=== PATIENT | male | born 1995 | race Caucasian/White ===

== ENCOUNTER 2016-05-07 13:07 | Inpatient (IN) | payer MEDICAID ==
[~2016-05-07] VITALS: Ht 167.6 cm; Wt 68.0 kg
[2016-05-07] MEDS ORDERED: NA P133E RC (13:54)
[2016-05-07] MEDS ORDERED: BISA10SU8 RC (13:54)
[2016-05-07] MEDS ORDERED: ALBU2.5V13 IH (13:54)
[2016-05-07] MEDS ORDERED: LEVE100S GT (13:54)
[2016-05-07] MEDS ORDERED: MAGN400O6 GT (13:54)
[2016-05-07] MEDS ORDERED: VITA1TAB56 GT (13:54)
[2016-05-07] MEDS ORDERED: IPRA0.2S9 IH (13:54)
[2016-05-07] MEDS ORDERED: DOCU50LI GT (13:54)
[2016-05-07] MEDS ORDERED: BACL20TA GT (13:54)
[2016-05-07] MEDS ORDERED: LORA2VIA6 IM (13:56)
[2016-05-07 14:09] LABS: CALCIUM, SERUM 9.2 mg/dL (8.5-10.1); CREATININE 0.7 mg/dL (0.6-1.3); POTASSIUM 4.9 mmol/L (3.5-5.1)
[2016-05-07 14:13] LABS: INR 1.18 (0.87-1.13); PROTHROMBIN TIME 12.4 SECS (9.5-12.7)
[2016-05-07 14:24] LABS: BILIRUBIN,TOTAL 0.2 mg/dL (0.2-1.0); TOTAL PROTEIN, SERUM 8.4 g/dL (6.4-8.2)
[2016-05-07 14:36] LABS: INDIRECT BILIRUBIN 0.2 mg/dL (0.0-1.1)
[2016-05-07 14:54] LABS: DIFF TOTAL % 100 %; HEMATOCRIT 53 % (39-51); HEMOGLOBIN 17.2 g/dL (13.5-17.5); LYMPHOCYTES # (AUTO) 1.3 /CMM (0.8-4.8); LYMPHOCYTES % (AUTO) 5.1 % (20.0-44.0); MEAN CORPUSCULAR HEMOGLOBIN 27 PG (26.0-33.0); MEAN CORPUSCULAR HGB CONC 33 g/dl (31.0-36.0); MEAN CORPUSCULAR VOLUME 83 fL (80-96); MONOCYTES # (AUTO) 0.7 /CMM (0.1-1.30); MONOCYTES % (AUTO) 2.8 % (2.0-12.0); NEUTROPHILS # (AUTO) 22.5 /CMM (1.8-8.9); NEUTROPHILS % (AUTO) 92.1 % (43.0-81.0); PLATELET COUNT (AUTO) 318 /CMM (150-450); RED BLOOD CELL COUNT(AUTO) 6.33 MIL/uL (4.5-6.0); WHITE BLOOD COUNT (AUTO) 24.4 K/uL (4.3-11.0)
[2016-05-07] MEDS ORDERED: IV NS 0.9% 1,000 ML BAG IV ONE ×2 (15:00→16:00)
[2016-05-07 15:04] LABS: KETONES,URINE 15 (NEGATIVE); LEUKOCYTE ESTERASE ,URINE Negative (NEGATIVE); PH,URINE 6.5 (5.0-8.0)
[2016-05-07 15:11] LABS: ADD UA MICROSCOPIC YES
[2016-05-07] MEDS ORDERED: IV SET PRIMARY 1 EA INFUS.SET MC ONE ×2 (15:12→15:57)
[2016-05-07] MEDS ORDERED: IV NS 0.9% 1,000 ML ONE ×2 (15:12→15:57)
[2016-05-07 15:22] LABS: ADD URINE CULTURE YES; RBC,URINE 0-3 /HPF (0-2)
[2016-05-07 15:54] LABS: LACTIC ACID 2.6 mmol/L (0.4-2.0)
[2016-05-07] MEDS ORDERED: CEFTRIAXONE 1GM BAG (ER ONLY) 50 ML IV ONE (15:56)
[2016-05-07] MEDS ORDERED: IV NS 0.9% 500 ML IV ONE (15:57)
[2016-05-07] MEDS ORDERED: IV SET PRIMARY PUMP SET 1 EA INFUS.SET MC ONE ×2 (15:57→21:33)
[2016-05-07] MEDS ORDERED: CEFTRIAXONE 1GM BAG (ER ONLY) 1 GM/50 ML PIGGYBACK IV ONE (16:00)
[2016-05-07 16:29] LABS: *LACTIC ACID REFLEX FLAG YES
[2016-05-07] MEDS ORDERED: ACETAMINOPHEN ES 500 MG TABLET ONE (16:32)
[2016-05-07 19:00] VITALS: BP 101/53
[2016-05-07 20:00] VITALS: BP 104/56
[2016-05-07] MEDS ORDERED: ACETAMINOPHEN 650 MG/20.3 ML UDC GT PRN (20:00)
[2016-05-07] MEDS ORDERED: FEE PK DOSING 1 MIN EA MC ONE (20:11)
[2016-05-07] MEDS ORDERED: SECONDARY IV SET 1 EA INFUS.SET MC ONE (21:33)
[2016-05-07] MEDS: VANCOMYCIN 1 GM in IV D5W 250 ML IV SCH (22:02)
[2016-05-07] MEDS: IV D5/ 0.9% NACL 1,000 ML IV PRN (22:03)
[2016-05-07] MEDS: ENOXAPARIN SODIUM 40 MG/0.4 ML DISP.SYRIN SQ SCH (22:05)
[2016-05-07] MEDS ORDERED: MAGNESIUM HYDROXIDE 30 ML UDC GT PRN (23:30)
[2016-05-07] MEDS ORDERED: ALBUTEROL FS 2.5 MG/3 ML VIAL.NEB NEB PRN (23:30)
[2016-05-07] MEDS ORDERED: LORAZEPAM INJ 2 MG/ML VIAL IV PRN (23:30)
[2016-05-07] MEDS ORDERED: IPRATROPIUM NEB FS 0.5 MG/2.5 ML AMPUL.NEB NEB PRN (23:30)
[2016-05-07] MEDS ORDERED: NA PHOS,M-B/NA PHOS,DI-BA 1 EA ENEMA RC PRN (23:30)
[2016-05-07] MEDS ORDERED: BISACODYL SUPP (10 MG) 10 MG/SUPP.RECT SUPP.RECT RC PRN (23:30)
[2016-05-08] MEDS ORDERED: LEVETIRACETAM SOL (5 ML) 100 MG/ML UDC ONE (00:12)
[2016-05-08] MEDS ORDERED: BACLOFEN (10 MG) 10 MG TABLET ONE ×2 (00:13→05:27)
[2016-05-08] MEDS ORDERED: SECONDARY IV SET 1 EA INFUS.SET MC ONE ×2 (00:15→13:53)
[2016-05-08] MEDS: LEVETIRACETAM SOL (5 ML) 100 MG/ML UDC GT SCH ×3 (00:19→16:47)
[2016-05-08] MEDS: BACLOFEN (10 MG) 10 MG TABLET GT SCH ×4 (00:19→21:24)
[2016-05-08] MEDS: PIPERACILLIN /TAZOBACTAM 3.375 G in IV D5W 50 ML IV SCH ×4 (00:20→17:43)
[2016-05-08] MEDS ORDERED: ALBUTEROL FS 2.5 MG/3 ML VIAL.NEB ONE (01:09)
[2016-05-08] MEDS ORDERED: IPRATROPIUM NEB FS 0.5 MG/2.5 ML AMPUL.NEB ONE (01:09)
[2016-05-08] MEDS ORDERED: ACETAMINOPHEN 650 MG/20.3 ML UDC ONE (01:56)
[2016-05-08] MEDS: VANCOMYCIN 1 GM in IV D5W 250 ML IV SCH ×3 (04:19→21:27)
[2016-05-08 07:03] LABS: BASOPHILS % (AUTO) 0.1 % (0.0-2.0); DIFF TOTAL % 100 %; EOSINOPHILS # (AUTO) 0.1 /CMM (0.0-0.7); EOSINOPHILS % (AUTO) 0.7 % (0.0-6.0); HEMATOCRIT 44 % (39-51); HEMOGLOBIN 14.4 g/dL (13.5-17.5); LYMPHOCYTES # (AUTO) 2.4 /CMM (0.8-4.8); LYMPHOCYTES % (AUTO) 18.1 % (20.0-44.0); MEAN CORPUSCULAR HEMOGLOBIN 27 PG (26.0-33.0); MEAN CORPUSCULAR HGB CONC 33 g/dl (31.0-36.0); MEAN CORPUSCULAR VOLUME 83 fL (80-96); MONOCYTES # (AUTO) 1.3 /CMM (0.1-1.30); MONOCYTES % (AUTO) 10.3 % (2.0-12.0); NEUTROPHILS # (AUTO) 9.2 /CMM (1.8-8.9); NEUTROPHILS % (AUTO) 70.8 % (43.0-81.0); PLATELET COUNT (AUTO) 256 /CMM (150-450); RED BLOOD CELL COUNT(AUTO) 5.28 MIL/uL (4.5-6.0)
[2016-05-08 07:22] LABS: CALCIUM, SERUM 8.4 mg/dL (8.5-10.1); CREATININE 0.7 mg/dL (0.6-1.3); POTASSIUM 3.6 mmol/L (3.5-5.1)
[2016-05-08 08:00] VITALS: BP 124/67
[2016-05-08] MEDS: DOCUSATE SODIUM LIQ 100 MG/10 ML UDC GT SCH ×2 (09:31→16:47)
[2016-05-08] MEDS: PANTOPRAZOLE 40 MG/PACK PACK GT SCH (09:31)
[2016-05-08] MEDS: VITAMIN B COMP W-C 1 TAB TABLET GT SCH (09:31)
[2016-05-08] MEDS: IV D5/ 0.9% NACL 1,000 ML IV PRN (11:42)
[2016-05-08 16:00] VITALS: BP 112/69
[2016-05-08] MEDS: LACTOBACILLUS RHAMNOSUS GG 1 EACH CAP.SPRINK GT SCH (16:47)
[2016-05-08 21:22] VITALS: BP 109/89
[2016-05-08] MEDS: ENOXAPARIN SODIUM 40 MG/0.4 ML DISP.SYRIN SQ SCH (21:25)
[2016-05-09] MEDS: PIPERACILLIN /TAZOBACTAM 3.375 G in IV D5W 50 ML IV SCH ×4 (00:15→17:20)
[2016-05-09] MEDS: BACLOFEN (10 MG) 10 MG TABLET GT SCH ×3 (04:25→20:52)
[2016-05-09] MEDS: VANCOMYCIN 1 GM in IV D5W 250 ML IV SCH ×3 (04:28→20:53)
[2016-05-09] MEDS: IV D5/ 0.9% NACL 1,000 ML IV PRN (04:34)
[2016-05-09 06:54] LABS: CALCIUM, SERUM 8.7 mg/dL (8.5-10.1); CREATININE 0.9 mg/dL (0.6-1.3); POTASSIUM 3.4 mmol/L (3.5-5.1)
[2016-05-09 08:00] VITALS: BP 113/71
[2016-05-09] MEDS: DOCUSATE SODIUM LIQ 100 MG/10 ML UDC GT SCH ×2 (08:40→16:20)
[2016-05-09] MEDS: LEVETIRACETAM SOL (5 ML) 100 MG/ML UDC GT SCH ×2 (08:41→16:20)
[2016-05-09] MEDS: LACTOBACILLUS RHAMNOSUS GG 1 EACH CAP.SPRINK GT SCH ×2 (08:41→16:20)
[2016-05-09] MEDS: VITAMIN B COMP W-C 1 TAB TABLET GT SCH (08:41)
[2016-05-09] MEDS: PANTOPRAZOLE 40 MG/PACK PACK GT SCH (08:41)
[2016-05-09] MEDS ORDERED: IV D5W 1,000 ML IV ONE (09:30)
[2016-05-09 09:42] LABS: BASOPHILS % (AUTO) 0.2 % (0.0-2.0); DIFF TOTAL % 100 %; EOSINOPHILS # (AUTO) 0.2 /CMM (0.0-0.7); HEMATOCRIT 48 % (39-51); HEMOGLOBIN 15.4 g/dL (13.5-17.5); LYMPHOCYTES # (AUTO) 2.3 /CMM (0.8-4.8); LYMPHOCYTES % (AUTO) 19.1 % (20.0-44.0); MEAN CORPUSCULAR HEMOGLOBIN 27 PG (26.0-33.0); MEAN CORPUSCULAR HGB CONC 32 g/dl (31.0-36.0); MEAN CORPUSCULAR VOLUME 83 fL (80-96); MONOCYTES % (AUTO) 8.6 % (2.0-12.0); NEUTROPHILS # (AUTO) 8.4 /CMM (1.8-8.9); NEUTROPHILS % (AUTO) 70.1 % (43.0-81.0); PLATELET COUNT (AUTO) 270 /CMM (150-450); RED BLOOD CELL COUNT(AUTO) 5.71 MIL/uL (4.5-6.0)
[2016-05-09] MEDS ORDERED: POTASSIUM CHLORIDE 20 MEQ POWDER PACKET GT ONE (10:00)
[2016-05-09 16:00] VITALS: BP 117/66
[2016-05-09 16:03] VITALS: BP 117/66
[2016-05-09 20:00] VITALS: BP 121/79
[2016-05-09] MEDS ORDERED: IV SET PRIMARY PUMP SET 1 EA INFUS.SET MC ONE (20:47)
[2016-05-09] MEDS ORDERED: IV NS 0.9% 250 ML IV ONE (20:47)
[2016-05-09] MEDS ORDERED: SECONDARY IV SET 1 EA INFUS.SET MC ONE (20:48)
[2016-05-09] MEDS: ENOXAPARIN SODIUM 40 MG/0.4 ML DISP.SYRIN SQ SCH (20:54)
[2016-05-10] MEDS: PIPERACILLIN /TAZOBACTAM 3.375 G in IV D5W 50 ML IV SCH ×5 (00:08→23:43)
[2016-05-10 04:23] LABS: BASOPHILS % (AUTO) 0.2 % (0.0-2.0); DIFF TOTAL % 100 %; EOSINOPHILS # (AUTO) 0.4 /CMM (0.0-0.7); EOSINOPHILS % (AUTO) 3.3 % (0.0-6.0); HEMATOCRIT 50 % (39-51); HEMOGLOBIN 15.7 g/dL (13.5-17.5); LYMPHOCYTES # (AUTO) 2.7 /CMM (0.8-4.8); LYMPHOCYTES % (AUTO) 25.3 % (20.0-44.0); MEAN CORPUSCULAR HEMOGLOBIN 27 PG (26.0-33.0); MEAN CORPUSCULAR HGB CONC 32 g/dl (31.0-36.0); MEAN CORPUSCULAR VOLUME 85 fL (80-96); MONOCYTES # (AUTO) 1.1 /CMM (0.1-1.30); MONOCYTES % (AUTO) 10.3 % (2.0-12.0); NEUTROPHILS # (AUTO) 6.5 /CMM (1.8-8.9); NEUTROPHILS % (AUTO) 60.9 % (43.0-81.0); PLATELET COUNT (AUTO) 230 /CMM (150-450); RED BLOOD CELL COUNT(AUTO) 5.86 MIL/uL (4.5-6.0); WHITE BLOOD COUNT (AUTO) 10.7 K/uL (4.3-11.0)
[2016-05-10 04:37] LABS: CREATININE 0.8 mg/dL (0.6-1.3); POTASSIUM 3.9 mmol/L (3.5-5.1)
[2016-05-10] MEDS: VANCOMYCIN 1 GM in IV D5W 250 ML IV SCH ×3 (05:01→20:35)
[2016-05-10] MEDS ORDERED: IV D5/0.45 NACL 1,000 ML IV ONE (05:47)
[2016-05-10] MEDS: BACLOFEN (10 MG) 10 MG TABLET GT SCH ×3 (05:56→20:36)
[2016-05-10] MEDS ORDERED: IV D5W 1,000 ML IV ONE (06:06)
[2016-05-10] MEDS ORDERED: DEXTROSE 50%-WATER 50 ML DISP.SYRIN ONE (06:36)
[2016-05-10 08:00] VITALS: BP 113/72
[2016-05-10] MEDS: LEVETIRACETAM SOL (5 ML) 100 MG/ML UDC GT SCH ×2 (08:33→16:06)
[2016-05-10] MEDS: VITAMIN B COMP W-C 1 TAB TABLET GT SCH (08:34)
[2016-05-10] MEDS: DOCUSATE SODIUM LIQ 100 MG/10 ML UDC GT SCH ×2 (08:34→16:06)
[2016-05-10] MEDS: PANTOPRAZOLE 40 MG/PACK PACK GT SCH (08:34)
[2016-05-10] MEDS: LACTOBACILLUS RHAMNOSUS GG 1 EACH CAP.SPRINK GT SCH ×2 (08:34→16:06)
[2016-05-10 16:00] VITALS: BP 115/71
[2016-05-10 17:27] VITALS: BP 115/71
[2016-05-10 20:00] VITALS: BP 115/66
[2016-05-10 20:25] VITALS: BP 115/66
[2016-05-10] MEDS: ENOXAPARIN SODIUM 40 MG/0.4 ML DISP.SYRIN SQ SCH (22:03)
[2016-05-10] MEDS ORDERED: SECONDARY IV SET 1 EA INFUS.SET MC ONE (23:35)
[2016-05-11] MEDS: VANCOMYCIN 1 GM in IV D5W 250 ML IV SCH (04:16)
[2016-05-11] MEDS: BACLOFEN (10 MG) 10 MG TABLET GT SCH ×2 (04:19→12:25)
[2016-05-11] MEDS: PIPERACILLIN /TAZOBACTAM 3.375 G in IV D5W 50 ML IV SCH ×2 (05:16→11:30)
[2016-05-11 07:25] LABS: BASOPHILS % (AUTO) 0.1 % (0.0-2.0); DIFF TOTAL % 100 %; EOSINOPHILS # (AUTO) 0.4 /CMM (0.0-0.7); EOSINOPHILS % (AUTO) 2.8 % (0.0-6.0); HEMATOCRIT 47 % (39-51); HEMOGLOBIN 15.5 g/dL (13.5-17.5); LYMPHOCYTES # (AUTO) 2.3 /CMM (0.8-4.8); MEAN CORPUSCULAR HEMOGLOBIN 27 PG (26.0-33.0); MEAN CORPUSCULAR HGB CONC 33 g/dl (31.0-36.0); MEAN CORPUSCULAR VOLUME 83 fL (80-96); MONOCYTES # (AUTO) 1.4 /CMM (0.1-1.30); MONOCYTES % (AUTO) 9.1 % (2.0-12.0); NEUTROPHILS # (AUTO) 11.2 /CMM (1.8-8.9); PLATELET COUNT (AUTO) 286 /CMM (150-450); RED BLOOD CELL COUNT(AUTO) 5.69 MIL/uL (4.5-6.0); WHITE BLOOD COUNT (AUTO) 15.3 K/uL (4.3-11.0)
[2016-05-11 07:55] LABS: CALCIUM, SERUM 8.9 mg/dL (8.5-10.1); POTASSIUM 3.6 mmol/L (3.5-5.1)
[2016-05-11 08:00] VITALS: BP 114/73
[2016-05-11] MEDS: LEVETIRACETAM SOL (5 ML) 100 MG/ML UDC GT SCH (08:10)
[2016-05-11] MEDS: LACTOBACILLUS RHAMNOSUS GG 1 EACH CAP.SPRINK GT SCH (08:10)
[2016-05-11] MEDS: DOCUSATE SODIUM LIQ 100 MG/10 ML UDC GT SCH (08:10)
[2016-05-11] MEDS: VITAMIN B COMP W-C 1 TAB TABLET GT SCH (08:10)
[2016-05-11] MEDS: PANTOPRAZOLE 40 MG/PACK PACK GT SCH (08:10)
== END 2016-05-11 13:50 | DRG 720 ==
LOC: ER 13:10 → TELE 17:11 → MED 23:48
PROVIDERS: ADMIT Legal Medicine; ATTEND Legal Medicine
DX: A41.9 Sepsis, unspecified organism (principal); J96.20 Acute and chronic respiratory failure, unspecified whether with hypoxia or hypercapnia; G93.1 Anoxic brain damage, not elsewhere classified; E87.0 Hyperosmolality and hypernatremia; G40.909 Epilepsy, unspecified, not intractable, without status epilepticus; Z87.820 Personal history of traumatic brain injury; G93.89 Other specified disorders of brain; E86.0 Dehydration; E86.1 Hypovolemia
CPT/HCPCS: 36415; 70450-TC; 71010-TC; 80048-TC; 80076-TC; 80202-TC; 81000-TC; 83605-TC; 85025-TC; 85730-TC; 87040-TC; 87081-TC; 87086-TC; 87400; 92521; 92526; 97001-TC; A4606; J0696; J1650; J1953; J2543; J3370; J3490; J7030; J7040; J7042; J7050; J7060; J7070; Z7610

== ENCOUNTER 2017-02-09 15:26 | Emergency (ER) | payer MEDICAID ==
[~2017-02-09] VITALS: Ht 160 cm; Wt 77.1 kg
[~2017-02-09 15:26] MED LIST: ALBU2.5V13 IH; BACL20TA GT; BISA10SU8 RC; DOCU50LI GT; IPRA0.2S9 IH; LEVE100S GT; LORA2VIA6 IM; MAGN400O6 GT; NA P133E RC; VITA1TAB56 GT
--- NOTE | 2017-02-09 15:45 | NUR ---
[facility] FOR LEAKING GTUBE. OBTUNDED. NON VERBAL. EYES OPEN. HOB ELEVATED. SIDE RAILS UP.
--- NOTE | 2017-02-09 16:13 | NUR ---
[facility] CALLED, SPOKE WITH TRACY AND ANOTHER NURSE IN CHARGED OF PT, VERIFIED THAT IT IS A G TUBE AND THE TUBE WAS LEAKING WHEN IT WAS FLUSHED AT NOON TIME
[2017-02-09] MEDS ORDERED: DIATR MEGLU/DIATRIZOATE SODIUM 30 ML BOTTLE (GASTROGRAPHIN) ONE (16:26)
--- NOTE | 2017-02-09 17:44 | NUR ---
CALLED [facility] FOR TRANSPORTATION GOING BACK TO [facility], ETA 190
[2017-02-09 20:40] VITALS: BP 112/70
== END 2017-02-09 20:40 ==
LOC: ER 15:28
DX: K94.23 Gastrostomy malfunction (principal); G40.909 Epilepsy, unspecified, not intractable, without status epilepticus; R13.10 Dysphagia, unspecified; G81.94 Hemiplegia, unspecified affecting left nondominant side; Z87.820 Personal history of traumatic brain injury
CPT/HCPCS: 74000-TC; A4606; Q9963; Z7610

== ENCOUNTER 2017-09-30 05:01 | Inpatient (IN) | payer MEDICAID ==
[~2017-09-30] VITALS: Ht 172.7 cm; Wt 76.2 kg
[2017-09-30] MEDS ORDERED: LORAZEPAM INJ 2 MG/ML VIAL ONE (05:09)
--- NOTE | 2017-09-30 05:11 | NUR ---
[facility]IBRA86 FROM [facility], PER EMS PT WAS HAVING TONIC CLONIC SEIZURE. PER EMS BG 87 IN FIELD. PT NOTED TO BE GCS 5-6, AAOX0. NO S/S OF TRAUMA NOTED. NO S/S OF ORAL TRAUMA NOTED. SKIN HOT AND DRY TO TOUCH. NO S/S OF ACUTE DISTRESS NOTED. PT PLACED ON CONTINOUS HOME PERFORMANCE CONSULTANT AND POX. PT SAFETY IN PLACE. SEIZURE PRECAUTIONS IN PLACE. MD BEDSIDE FOR EVAL. WILL CONTINUE TO MONITOR PT.
--- NOTE | 2017-09-30 05:14 | NUR ---
BLOOD SPECIMEN AND URINE SPECIMEN COLLECTED AND CALLED LAB FOR DUTY MANAGER
[2017-09-30] MEDS ORDERED: LORAZEPAM INJ 2 MG/ML VIAL IVP ONE (05:30)
[2017-09-30] MEDS ORDERED: IV NS 0.9% 500 ML BAG IV ONE (05:30)
[2017-09-30 05:32] LABS: BASOPHILS % (AUTO) 0.3 % (0.0-2.0); HEMATOCRIT 48 % (39-51); HEMOGLOBIN 15.9 g/dL (13.5-17.5); LYMPHOCYTES # (AUTO) 1.2 /CMM (0.8-4.8); LYMPHOCYTES % (AUTO) 8.3 % (20.0-44.0); MEAN CORPUSCULAR HEMOGLOBIN 28 PG (26.0-33.0); MEAN CORPUSCULAR HGB CONC 33 g/dl (31.0-36.0); MEAN CORPUSCULAR VOLUME 84 fL (80-96); MONOCYTES % (AUTO) 6.9 % (2.0-12.0); NEUTROPHILS % (AUTO) 83.5 % (43.0-81.0); PLATELET COUNT (AUTO) 305 /CMM (150-450); RDW COEFFICIENT OF VARIATION 13.6 (11.5-15.0); WHITE BLOOD COUNT (AUTO) 14.4 K/uL (4.3-11.0)
[2017-09-30 05:38] LABS: APPEARANCE,URINE CLOUDY (CLEAR); BILIRUBIN,URINE NEGATIVE (NEGATIVE); BLOOD, URINE 3+ Ery/uL (NEGATIVE); COLOR,URINE DARK YELLO (YELLOW); KETONES,URINE NEGATIVE (NEGATIVE); LEUKOCYTE ESTERASE ,URINE 1+ (NEGATIVE); NITRITE, URINE POSITIVE (NEGATIVE); PH,URINE 5.5 (5.0-8.0); PROTEIN,URINE TRACE mg/dl (NEGATIVE); UGLUCOSE NEGATIVE (NEGATIVE); UROBILINOGEN,URINE 0.2 EU/dL (0.2)
[2017-09-30 05:44] LABS: CALCIUM, SERUM 8.9 mg/dL (8.5-10.1); CARBON DIOXIDE 28 mmol/L (21-32); CHLORIDE 104 mmol/L (98-107); CREATININE 0.8 mg/dL (0.6-1.3); GLUCOSE 103 mg/dL (74-106); POTASSIUM 4.1 mmol/L (3.5-5.1); SODIUM SERUM 139 mmol/L (136-145); UREA NITROGEN, BLOOD 9 mg/dL (7-18)
[2017-09-30 05:48] LABS: INR 1.12 (0.87-1.13)
[2017-09-30 05:50] LABS: ALANINE AMINOTRANSFERASE 24 U/L (12-78); ALBUMIN 3.5 g/dL (3.4-5.0); ALCOHOL, BLOOD < 3 mg/dL (0-0); ALKALINE PHOSPHATASE 90 U/L (46-116); ASPARTATE AMINOTRANSFERASE 10 U/L (15-37); BILIRUBIN,TOTAL 0.2 mg/dL (0.2-1.0); TOTAL PROTEIN, SERUM 8.1 g/dL (6.4-8.2)
[2017-09-30] MEDS ORDERED: SACC250C GT (06:19)
[2017-09-30] MEDS ORDERED: VITA1CAP GT (06:19)
[2017-09-30] MEDS ORDERED: LAMO25TA5 GT (06:19)
[2017-09-30] MEDS ORDERED: ACET325C5 GT (06:19)
[2017-09-30 06:22] LABS: BACTERIA,URINE Moderate /HPF (None Seen); RBC,URINE TOO NUMEROUS TO COUN /HPF (0-2)
[2017-09-30 06:23] LABS: SQUAMOUS EPITHELIAL CELL,UR Few /HPF (None Seen)
[2017-09-30] MEDS ORDERED: CEFTRIAXONE 1GM BAG (ER ONLY) 50 ML IV ONE (06:30)
[2017-09-30] MEDS ORDERED: CEFTRIAXONE 1 G VIAL ONE (06:32)
--- NOTE | 2017-09-30 06:52 | NUR ---
PER MD MILLER, PT WILL BE UPGRADED TO [facility].
[2017-09-30] MEDS ORDERED: LORAZEPAM INJ 2 MG/ML VIAL IV PRN (07:30)
[2017-09-30] MEDS ORDERED: ZOLPIDEM TARTRATE 5 MG TABLET GT PRN (07:30)
[2017-09-30] MEDS ORDERED: MAG HYDROX/AL HYDROX/SIMETH 30 ML UDC GT PRN (07:30)
[2017-09-30] MEDS ORDERED: MAGNESIUM HYDROXIDE 30 ML UDC GT PRN (07:30)
[2017-09-30] MEDS ORDERED: ONDANSETRON HCL/PF 4 MG/2 ML VIAL IVP PRN (07:30)
[2017-09-30] MEDS ORDERED: NA PHOS,M-B/NA PHOS,DI-BA 1 EA ENEMA RC PRN (07:30)
[2017-09-30] MEDS ORDERED: BISACODYL SUPP (10 MG) 10 MG/SUPP.RECT SUPP.RECT RC PRN (07:30)
[2017-09-30] MEDS ORDERED: MAGNESIUM HYDROXIDE 30 ML UDC PO PRN (07:30)
[2017-09-30 08:00] VITALS: BP 122/61
[2017-09-30 08:20] VITALS: BP 122/61
--- NOTE | 2017-09-30 08:20 | NUR ---
RN NOTE RECEIVED REPORT FROM GALI IN ER. RECEIVED PATIENT 22 YEAR OLD MALE CAME FROM [facility] FOR SEIZURES. PATIENT IS ALERT TO TACTILE STIMULI. ABNORMAL UPPER EXTREMITY POSTURE. BREATHING EVEN AND UNLABORED WITH NO DISTRESS NOTED. ON FITTER UP SINUS TACH HR OF 107. F/C INTACT AND PATENT WITH ADEQUATE FLOW OF URINE. GT SITE INTACT AND PATENT WITH NO RESIDUALS NOTED. WOUND PICTURES TAKEN AND DOCUMENTED IN CHART. RIGHT HAND IV SITE IS INTACT AND PATENT SALINE LOCK. BED LOW AND LOCKED POSITION. SEIZURE PRECAUTION DONE. WILL CONTINUE TO MONITOR CLOSELY.
[2017-09-30] MEDS ORDERED: LEVETIRACETAM (500MG) 1,500 MG in IV NS 0.9% 100 ML IV SCH (09:00)
[2017-09-30] MEDS: IV NS 0.9% 1,000 ML IV PRN (09:10)
[2017-09-30] MEDS: ENOXAPARIN SODIUM 40 MG/0.4 ML DISP.SYRIN SQ SCH (09:16)
[2017-09-30] MEDS: PANTOPRAZOLE 40 MG VIAL IV SCH (09:16)
[2017-09-30] MEDS: LamoTRIgine 25 MG TABLET GT SCH ×2 (10:19→16:25)
[2017-09-30] MEDS: LACTOBACILLUS RHAMNOSUS GG 1 EACH CAP.SPRINK GT SCH ×2 (10:19→16:25)
[2017-09-30] MEDS: DOCUSATE SODIUM LIQ 100 MG/10 ML UDC GT SCH ×2 (10:19→16:25)
[2017-09-30] MEDS: VITAMIN B COMP W-C 1 TAB TABLET GT SCH (10:20)
[2017-09-30] MEDS ORDERED: PHENOBARBITAL SODIUM 1,000 MG in IV NS 0.9% 80 ML IV ONE (10:30)
[2017-09-30 12:00] VITALS: BP 100/65
[2017-09-30 16:00] VITALS: BP 106/60
[2017-09-30] MEDS: PHENOBARBITAL 60 MG/15 ML UDC GT SCH (16:25)
[2017-09-30] MEDS: ACETAMINOPHEN 650 MG/20.3 ML UDC GT PRN (16:25)
--- NOTE | 2017-09-30 16:54 | NUR ---
Patient resides at [facility] [phone],requires max assist with adl's. Bed/chair bound most of the time. He is on 7 days bedhold with plan to return to SNF when discharge. Addendum: 09/30/17 at 1654 by MAGGY PINZON RN Amended: Links added.
--- NOTE | 2017-09-30 19:24 | NUR ---
RN NOTE PATIENT REMAINED STABLE THROUGHOUT SHIFT. NO ACUTE CHANGES OR DISTRESS NOTED. WILL ENDORSE TO NEXT SHIFT TO CONTINUE CONTINUITY OF CARE.
[2017-09-30 20:00] VITALS: BP 103/64
--- NOTE | 2017-09-30 20:00 | NUR ---
el rn notes received pts in bed obtunded non verbal , on r/a sating 93% no sob no distress noted at this time , v/s stable afebrile , no seizure activity noted .all needs attended too , npo except meds maintained , on ivf of ns at 75cc/hr infusing well , with f/c intact and patent draining with yellowish urine output ,turned and repositioned , kept pts clean dry and comfortable . will continue to monitor pts.
[2017-10-01] VITALS: BP 90/55
[2017-10-01] MEDS: IV NS 0.9% 1,000 ML IV PRN (00:47)
[2017-10-01 04:00] VITALS: BP 105/55
[2017-10-01 06:15] LABS: BASOPHILS % (AUTO) 0.3 % (0.0-2.0); EOSINOPHILS % (AUTO) 1.3 % (0.0-6.0); HEMATOCRIT 44 % (39-51); HEMOGLOBIN 14.3 g/dL (13.5-17.5); LYMPHOCYTES # (AUTO) 2.1 /CMM (0.8-4.8); LYMPHOCYTES % (AUTO) 16.9 % (20.0-44.0); MEAN CORPUSCULAR HEMOGLOBIN 28 PG (26.0-33.0); MEAN CORPUSCULAR HGB CONC 33 g/dl (31.0-36.0); MEAN CORPUSCULAR VOLUME 86 fL (80-96); MONOCYTES # (AUTO) 1.3 /CMM (0.1-1.30); MONOCYTES % (AUTO) 10.4 % (2.0-12.0); NEUTROPHILS # (AUTO) 8.7 /CMM (1.8-8.9); NEUTROPHILS % (AUTO) 71.1 % (43.0-81.0); PLATELET COUNT (AUTO) 263 /CMM (150-450); RDW COEFFICIENT OF VARIATION 13.6 (11.5-15.0); RED BLOOD CELL COUNT(AUTO) 5.09 MIL/uL (4.5-6.0); WHITE BLOOD COUNT (AUTO) 12.2 K/uL (4.3-11.0)
[2017-10-01 06:46] LABS: CALCIUM, SERUM 8.2 mg/dL (8.5-10.1); CREATININE 0.7 mg/dL (0.6-1.3); POTASSIUM 4.3 mmol/L (3.5-5.1)
--- NOTE | 2017-10-01 07:30 | NUR ---
[facility] RN NOTES PTS REMAINS OBTUNDED NO SEIZURE ACTIVITY NOTED, NO SIGNIFICANT CHANGE NOTED , WILL ENDORSE TO RN FRANNY FOR CONTINUITY OF CARE.
--- NOTE | 2017-10-01 07:30 | NUR ---
[facility] RN INITIAL NOTES RECEIVED PATIENT IN BED, OBTUNDED, NONVERBAL, ON ROOM AIR, NO DISTRESS NOTED, NO SEIZURE ACTIVITY AT THIS TIME, ON TELE MONITORING 94 HR, IV R HAND 20G, CLEAN AND PATENT, FC TO GRAVITY, BED IN LOCKED POSITION CALL LIGHT WITHIN REACH, WILL CONTINUE TO MONITOR.
[2017-10-01] MEDS: CEFTRIAXONE 1 G in IV D5W 50 ML IV SCH (07:55)
[2017-10-01 08:00] VITALS: BP 99/67
[2017-10-01] MEDS: PANTOPRAZOLE 40 MG VIAL IV SCH (08:20)
[2017-10-01] MEDS: LACTOBACILLUS RHAMNOSUS GG 1 EACH CAP.SPRINK GT SCH ×2 (08:20→16:40)
[2017-10-01] MEDS: DOCUSATE SODIUM LIQ 100 MG/10 ML UDC GT SCH ×2 (08:20→16:40)
[2017-10-01] MEDS: LamoTRIgine 25 MG TABLET GT SCH ×2 (08:20→16:40)
[2017-10-01] MEDS: PHENOBARBITAL 60 MG/15 ML UDC GT SCH ×2 (08:20→16:40)
[2017-10-01] MEDS: VITAMIN B COMP W-C 1 TAB TABLET GT SCH (08:20)
[2017-10-01] MEDS: ENOXAPARIN SODIUM 40 MG/0.4 ML DISP.SYRIN SQ SCH (08:22)
[2017-10-01] MEDS: CALCIUM CARBONATE 1,250 MG/5 ML UDC GT SCH (08:48)
[2017-10-01 12:00] VITALS: BP 110/69
[2017-10-01 16:00] VITALS: BP 104/68
[2017-10-01] MEDS: JEVITY 1.2 CAL 1,000 ML BOTTLE GT PRN (18:18)
--- NOTE | 2017-10-01 18:30 | NUR ---
CLIENT SERVICE SUPERVISOR END NOTES PATIENT RESTING IN BED, NO SIGNS OF DISTRESS, ALL NEEDS MET, NO CHANGES NOTED, WILL ENDORSE TO INTELLECTUAL PROPERTY COUNSEL FOR CONTINUITY OF CARE.
[2017-10-01 20:00] VITALS: BP 97/64
--- NOTE | 2017-10-01 20:10 | NUR ---
RN NOTES RECEIVED PATIENT AWAKE IN BED WITH NO DISTRESS NOTED. BREATHING EVEN AND UNLABORED. NO PHYSICAL MANIFESTATION OF PAIN OR DISCOMFORT. NOTED WITH EYE CONTACT. KEPT CLEAN AND DRY. WILL CONTINUE TO MONITOR.
[2017-10-02] VITALS: BP 100/67
[2017-10-02 04:00] VITALS: BP 105/74
[2017-10-02] MEDS: IV NS 0.9% 1,000 ML IV PRN ×2 (06:14→21:50)
[2017-10-02 06:15] LABS: BASOPHILS % (AUTO) 0.3 % (0.0-2.0); EOSINOPHILS % (AUTO) 1.4 % (0.0-6.0); HEMATOCRIT 47 % (39-51); HEMOGLOBIN 15.1 g/dL (13.5-17.5); LYMPHOCYTES % (AUTO) 13.5 % (20.0-44.0); MEAN CORPUSCULAR HEMOGLOBIN 28 PG (26.0-33.0); MEAN CORPUSCULAR HGB CONC 32 g/dl (31.0-36.0); MEAN CORPUSCULAR VOLUME 86 fL (80-96); MONOCYTES # (AUTO) 1.5 /CMM (0.1-1.30); MONOCYTES % (AUTO) 10.6 % (2.0-12.0); NEUTROPHILS # (AUTO) 10.9 /CMM (1.8-8.9); NEUTROPHILS % (AUTO) 74.2 % (43.0-81.0); PLATELET COUNT (AUTO) 252 /CMM (150-450); RDW COEFFICIENT OF VARIATION 13.4 (11.5-15.0); RED BLOOD CELL COUNT(AUTO) 5.43 MIL/uL (4.5-6.0); WHITE BLOOD COUNT (AUTO) 14.6 K/uL (4.3-11.0)
[2017-10-02 06:35] LABS: CALCIUM, SERUM 8.2 mg/dL (8.5-10.1); CREATININE 0.7 mg/dL (0.6-1.3); POTASSIUM 3.7 mmol/L (3.5-5.1)
--- NOTE | 2017-10-02 07:15 | NUR ---
TELE/RN INITIAL NOTES RECEIVED PT IN BED, A/OX1. TOLERATING ROOM AIR WELL, NO SOB NOTED. NO C/O PAIN AT THIS TIME. SINUS TACHY HR 104 ON TELE MONITOR. FC INTACT AND IN PLACED. WITH ONGOING IVF NS AT 75 ML/HR INFUSING WELL ON RHAND. NO INFECTION NOTED. WITH ONGOING GTF OF JEVITY 1.2 AT 70 ML/HR, TOLERATING WELL, NO RESIDUE NOTED. GT INTACT AND IN PLACED. HOB ELEVATED. SAFETY MEASURES, ASPIRATION AND SEIZURE PRECAUTION IN PLACED. CALL LIGHT WITHIN REACH. WILL CONT TO MONITOR
[2017-10-02 08:00] VITALS: BP 110/74
[2017-10-02] MEDS: CEFTRIAXONE 1 G in IV D5W 50 ML IV SCH (08:26)
[2017-10-02] MEDS: PHENOBARBITAL 60 MG/15 ML UDC GT SCH ×2 (08:27→16:47)
[2017-10-02] MEDS: CALCIUM CARBONATE 1,250 MG/5 ML UDC GT SCH (08:27)
[2017-10-02] MEDS: LamoTRIgine 25 MG TABLET GT SCH ×2 (08:28→16:47)
[2017-10-02] MEDS: LACTOBACILLUS RHAMNOSUS GG 1 EACH CAP.SPRINK GT SCH ×2 (08:28→16:47)
[2017-10-02] MEDS: PANTOPRAZOLE 40 MG VIAL IV SCH (08:28)
[2017-10-02] MEDS: DOCUSATE SODIUM LIQ 100 MG/10 ML UDC GT SCH ×2 (08:28→16:47)
[2017-10-02] MEDS: VITAMIN B COMP W-C 1 TAB TABLET GT SCH (08:28)
[2017-10-02] MEDS: ENOXAPARIN SODIUM 40 MG/0.4 ML DISP.SYRIN SQ SCH (08:29)
[2017-10-02 12:00] VITALS: BP 101/67
--- NOTE | 2017-10-02 13:45 | NUR ---
RN NOTES SEEN AND EXAMINED BY SAJAN DE SOUZA, NOTIFIED RE: HR GOES UP TO 120S, WITH ORDERS GIVE PRN ATIVAN, WILL CONT TO MONITOR
[2017-10-02] MEDS: AZITHROMYCIN 500 MG in IV D5W 250 ML IV SCH (14:56)
[2017-10-02 16:00] VITALS: BP 102/69
[2017-10-02] MEDS: JEVITY 1.2 CAL 1,000 ML BOTTLE GT PRN (16:33)
--- NOTE | 2017-10-02 19:11 | NUR ---
TELE/RN CLOSING NOTES PT IN STABLE CONDITION. ST HR 50S ON 110S ON TELE MONITOR. NO SIGNS OF PAIN NOTED. NO SEIZURE EPISODE THROUGHOUT SHIFT. SAFETY AND ASPIRATION PRECAUTION OBSERVED AT ALL TIMES. ALL NEEDS ANTICIPATED. ENDORSED TO PM SHIFT NURSE FOR JUDE
[2017-10-02 20:00] VITALS: BP 106/74
--- NOTE | 2017-10-02 20:05 | NUR ---
[facility] RN NOTES RECEIVED PT'S BEDSIDE REPORT FROM AM NURSE. PT IN BED, A/OX2. TOLERATING ROOM AIR WELL, NO SOB NOTED AT THIS TIME. NO C/O PAIN AT THIS TIME. SINUS TACHY HR 110 ON TELE MONITOR. FC IN PLACED, DRAINING WELL ON GRAVITY. WITH ONGOING IVF NS AT 75 ML/HR INFUSING WELL ON RHAND IV LINE 20G. PT IS ON ONGOING GTF OF JEVITY 1.2 AT 70 ML/HR, TOLERATING WELL, NO RESIDUE NOTED. GT INTACT AND IN PLACED. HOB ELEVATED. SAFETY MEASURES, ASPIRATION AND SEIZURE PRECAUTION IN PLACED. CALL LIGHT WITHIN REACH. WILL CONT TO MONITOR
[2017-10-02] MEDS: HYDROCODONE/APAP 5/325MG 1 EACH TABLET GT PRN (22:03)
[2017-10-03] VITALS: BP 92/59
[2017-10-03 04:00] VITALS: BP 100/64
[2017-10-03] MEDS: HYDROCODONE/APAP 5/325MG 1 EACH TABLET GT PRN (04:03)
--- NOTE | 2017-10-03 06:20 | NUR ---
[facility] RN NOTES PT IN STABLE CONDITION. ST HR 107 ON TELE MONITOR. NO SIGNS OF PAIN , NO FEVER NOTED. NO SEIZURE EPISODE THROUGHOUT SHIFT. SAFETY AND ASPIRATION PRECAUTION OBSERVED AT ALL TIMES. ALL NEEDS ANTICIPATED. PATIENT CARE WILL BE ENDORSED TO AM SHIFT NURSE FOR JUDE
--- NOTE | 2017-10-03 07:44 | NUR ---
RN NOTE RECEIVED PATIENT ALERT TO TACTILE STIMULI. BREATHING EVEN AND UNLABORED WITH NO DISTRESS NOTED. ON TELETYPE OR VARITYPE KEYBOARD OPERATOR SINUS TACH HR OF 108. F/C INTACT AND PATENT WITH ADEQUATE FLOW OF URINE. GT SITE INTACT AND PATENT WITH NO RESIDUALS AND ONGOING FEEDINGS, WELL TOLERATED. RIGHT HAND IV SITE IS INTACT AND PATENT. ALL SAFETY MEASURES DONE. BED LOW AND LOCKED POSITION. SEIZURE PRECAUTION DONE. WILL CONTINUE TO MONITOR.
[2017-10-03 08:00] VITALS: BP 90/60
[2017-10-03] MEDS: DOCUSATE SODIUM LIQ 100 MG/10 ML UDC GT SCH ×2 (08:12→16:26)
[2017-10-03] MEDS: LACTOBACILLUS RHAMNOSUS GG 1 EACH CAP.SPRINK GT SCH ×2 (08:12→16:26)
[2017-10-03] MEDS: LamoTRIgine 25 MG TABLET GT SCH ×2 (08:12→16:26)
[2017-10-03] MEDS: PHENOBARBITAL 60 MG/15 ML UDC GT SCH ×2 (08:12→16:26)
[2017-10-03] MEDS: VITAMIN B COMP W-C 1 TAB TABLET GT SCH (08:12)
[2017-10-03] MEDS: PANTOPRAZOLE 40 MG VIAL IV SCH (08:15)
[2017-10-03] MEDS: CEFTRIAXONE 1 G in IV D5W 50 ML IV SCH (08:15)
[2017-10-03] MEDS: CALCIUM CARBONATE 1,250 MG/5 ML UDC GT SCH (08:15)
[2017-10-03] MEDS: ENOXAPARIN SODIUM 40 MG/0.4 ML DISP.SYRIN SQ SCH (08:18)
[2017-10-03 09:04] LABS: BASOPHILS % (AUTO) 0.2 % (0.0-2.0); EOSINOPHILS % (AUTO) 2.4 % (0.0-6.0); HEMATOCRIT 43 % (39-51); HEMOGLOBIN 13.9 g/dL (13.5-17.5); LYMPHOCYTES # (AUTO) 2.1 /CMM (0.8-4.8); LYMPHOCYTES % (AUTO) 20.7 % (20.0-44.0); MEAN CORPUSCULAR HEMOGLOBIN 28 PG (26.0-33.0); MEAN CORPUSCULAR HGB CONC 33 g/dl (31.0-36.0); MEAN CORPUSCULAR VOLUME 86 fL (80-96); MONOCYTES # (AUTO) 1.2 /CMM (0.1-1.30); MONOCYTES % (AUTO) 12.1 % (2.0-12.0); NEUTROPHILS # (AUTO) 6.6 /CMM (1.8-8.9); NEUTROPHILS % (AUTO) 64.6 % (43.0-81.0); PLATELET COUNT (AUTO) 259 /CMM (150-450); RDW COEFFICIENT OF VARIATION 13.6 (11.5-15.0); RED BLOOD CELL COUNT(AUTO) 4.98 MIL/uL (4.5-6.0); WHITE BLOOD COUNT (AUTO) 10.2 K/uL (4.3-11.0)
[2017-10-03 09:14] LABS: CALCIUM, SERUM 7.9 mg/dL (8.5-10.1); CREATININE 0.6 mg/dL (0.6-1.3); POTASSIUM 3.8 mmol/L (3.5-5.1)
[2017-10-03] MEDS: JEVITY 1.2 CAL 1,000 ML BOTTLE GT PRN (09:24)
[2017-10-03] MEDS: IV NS 0.9% 1,000 ML IV PRN (11:55)
[2017-10-03] MEDS: ACETAMINOPHEN 650 MG/20.3 ML UDC GT PRN (11:55)
[2017-10-03 12:00] VITALS: BP 110/62
[2017-10-03] MEDS: AZITHROMYCIN 500 MG in IV D5W 250 ML IV SCH (14:32)
[2017-10-03 16:00] VITALS: BP 107/67
--- NOTE | 2017-10-03 19:12 | NUR ---
RN NOTE PATIENT REMAINED STABLE THROUGHOUT SHIFT. NO ACUTE CHANGES OR DISTRESS NOTED. WILL ENDORSE TO NEXT SHIFT TO CONTINUE CONTINUITY OF CARE.
[2017-10-03 20:00] VITALS: BP 119/75
[2017-10-04] VITALS: BP 104/65
[2017-10-04] MEDS: JEVITY 1.2 CAL 1,000 ML BOTTLE GT PRN ×2 (00:16→15:33)
[2017-10-04] MEDS: IV NS 0.9% 1,000 ML IV PRN ×2 (02:04→20:46)
[2017-10-04 04:00] VITALS: BP 115/67
[2017-10-04 06:33] LABS: BASOPHILS % (AUTO) 0.2 % (0.0-2.0); EOSINOPHILS % (AUTO) 3.3 % (0.0-6.0); HEMATOCRIT 43 % (39-51); HEMOGLOBIN 13.8 g/dL (13.5-17.5); LYMPHOCYTES # (AUTO) 1.8 /CMM (0.8-4.8); LYMPHOCYTES % (AUTO) 15.5 % (20.0-44.0); MEAN CORPUSCULAR HEMOGLOBIN 28 PG (26.0-33.0); MEAN CORPUSCULAR HGB CONC 32 g/dl (31.0-36.0); MEAN CORPUSCULAR VOLUME 87 fL (80-96); MONOCYTES # (AUTO) 1.4 /CMM (0.1-1.30); MONOCYTES % (AUTO) 11.6 % (2.0-12.0); NEUTROPHILS # (AUTO) 8.1 /CMM (1.8-8.9); NEUTROPHILS % (AUTO) 69.4 % (43.0-81.0); PLATELET COUNT (AUTO) 282 /CMM (150-450); RDW COEFFICIENT OF VARIATION 13.7 (11.5-15.0); RED BLOOD CELL COUNT(AUTO) 4.96 MIL/uL (4.5-6.0); WHITE BLOOD COUNT (AUTO) 11.6 K/uL (4.3-11.0)
[2017-10-04 06:41] LABS: CREATININE 0.5 mg/dL (0.6-1.3)
--- NOTE | 2017-10-04 07:05 | NUR ---
PACK CHANGER OPENING NOTE RECEIVED BEDSIDE SBAR REPORT ON THE PATIENT. PATIENT IS AWAKE, OPENS EYES AND UNDERSTANDS. ABLE TO NOD THE HEAD TO ANSWER SIMPLE QUESTIONS. BED IS LOCKED IN LOWEST POSITION, SIDE RAILS UP X3,BED ALARM IS ON. DENIES PAIN/DISCOMFORT AT THIS TIME. EXTERNAL MONITOR READING SR 94. BASSETT CATHETER PRESENT. GT PRESENT. FEEDING RUNNING PRESCRIBED. ALL NEEDS ARE MET. WILL CONTINUE TO ASSESS/MONITOR THROUGHOUT THE SHIFT.
--- NOTE | 2017-10-04 07:30 | NUR ---
HAD UNEVENTFUL NIGHT. CONTINUES TO TOLERATE FDG, NO DISTRESS NOTED.
[2017-10-04 08:00] VITALS: BP 108/65
[2017-10-04] MEDS: CEFTRIAXONE 1 G in IV D5W 50 ML IV SCH (08:00)
[2017-10-04] MEDS: DOCUSATE SODIUM LIQ 100 MG/10 ML UDC GT SCH ×2 (08:44→17:50)
[2017-10-04] MEDS: LACTOBACILLUS RHAMNOSUS GG 1 EACH CAP.SPRINK GT SCH ×2 (08:44→17:51)
[2017-10-04] MEDS: LamoTRIgine 25 MG TABLET GT SCH ×2 (08:44→17:51)
[2017-10-04] MEDS: VITAMIN B COMP W-C 1 TAB TABLET GT SCH (08:44)
[2017-10-04] MEDS: PHENOBARBITAL 60 MG/15 ML UDC GT SCH ×2 (08:45→17:51)
[2017-10-04] MEDS: PANTOPRAZOLE 40 MG VIAL IV SCH (08:45)
[2017-10-04] MEDS: CALCIUM CARBONATE 1,250 MG/5 ML UDC GT SCH (09:37)
[2017-10-04] MEDS: ENOXAPARIN SODIUM 40 MG/0.4 ML DISP.SYRIN SQ SCH (09:38)
--- NOTE | 2017-10-04 09:45 | NUR ---
CEFTRIAXONE NON SCANNABLE. CHARGE NURSE SOON INFORMED. PER SOON, THE PHARMACY IS AWARE THAT MEDICATION IS NON-SCANNABLE. VERIFIED MEDICATION WITH DAJUAN HINES AND DAJUAN BRITO THE CHARGE NURSE. ADMINISTERED IN COMPLIANCE WITH THE 6 RIGHTS OF MEDICATION ADMINISTRATION.
--- NOTE | 2017-10-04 09:46 | NUR ---
PATIENT PRESENTS WITH S/S OF ANXIETY, BLINKING FAST, AND BREATHING FAST. ATIVAN ADMINISTERED ORDERED.
[2017-10-04] MEDS: HYDROCODONE/APAP 5/325MG 1 EACH TABLET GT PRN ×3 (11:52→20:46)
--- NOTE | 2017-10-04 11:52 | NUR ---
PRESENTS WITH S/S OF PAIN SUCH TACHYPNEA, TACHYCARDIA AND DIAPHORESIS. NORCO ADMINISTERED ORDERED.
[2017-10-04 12:00] VITALS: BP 111/72
--- NOTE | 2017-10-04 15:23 | NUR ---
PRESENTED WITH S/S OF PAIN. RN ASKED THE PATIENT "ARE YOU IN PAIN?" PATIENT NODDED INDICATING A POSITIVE ANSWER. NORCO ADMINISTERED PRESCRIBED. WILL REASESS THE PAIN.
[2017-10-04] MEDS: AZITHROMYCIN 500 MG in IV D5W 250 ML IV SCH (15:25)
[2017-10-04 16:00] VITALS: BP 100/56
--- NOTE | 2017-10-04 19:00 | NUR ---
MS RN OPENING NOTE RECEIVE PATIENT AWAKE IN BED,OPENS EYES RESPONSIVE TO VERBAL STIMULI NO SOB OR DISTRESS NOTED, CALL LIGHT WITHIN REACH. SAFETY MEASURES IMPLEMENTED. WILL CONTINUE TO MONITOR THROUGHOUT SHIFT.
--- NOTE | 2017-10-04 19:14 | NUR ---
PRODUCTION GRADER CLOSING NOTE RECEIVED BEDSIDE SBAR REPORT ON THE PATIENT. PATIENT IS AWAKE, OPENS EYES AND UNDERSTANDS. ABLE TO NOD THE HEAD TO ANSWER SIMPLE QUESTIONS. BED IS LOCKED IN LOWEST POSITION, SIDE RAILS UP X3,BED ALARM IS ON. DENIES PAIN/DISCOMFORT AT THIS TIME. BASSETT CATHETER PRESENT. GT PRESENT. FEEDING RUNNING PRESCRIBED. ALL NEEDS ARE MET. ENDORSED TO THE VENEER TRIMMER NURSE FOR JUDE.
[2017-10-04 20:00] VITALS: BP 110/68
[2017-10-05] VITALS: BP 102/61
--- NOTE | 2017-10-05 03:00 | NUR ---
TRANSFERRED PT TO ROOM 312-1 IN STABLE NO INCIDENT VIA ACLS PROTOCOL DENIES PAIN/DISCOMFORT AT THIS TIME. PT ASSISTED REPOSITION EVERY 2 HOURS BASSETT CATHETER PRESENT DRAINING YELLOW VIA GRAVITY. GT INTACT FEEDING RUNNING PRESCRIBED. GOOD SKIN CARE, KEPT COMFORTABLE CLEAN AND DRY, NEEDS ATTENDED. ENDORSED TO THE NIGHT HOCKEY INSTRUCTOR NURSE
[2017-10-05 03:02] VITALS: BP 111/72
--- NOTE | 2017-10-05 03:02 | NUR ---
BOTTOM TURNING LATHE TENDERPSYCHOLOGIST SOCIAL NOTES RECEIVED PT FROM [facility] TO ROOM 312-1 IN BED, ACCOMPANIED BY STAFF VIA ACLS PROTOCOL. A/OX1. TOLERATING RA WELL, NO SOB NOTED AT THIS TIME. NO S/S OF PAIN AT THIS TIME. SINUS TACHY HR 106 ON TELE MONITOR. BODY TEMP 99.0 AXILLARY, WILL START NON PHARMACOLOGICAL INTERVENTIONS FIRST. WILL ALSO GIVE TYLENOL PRN. FC IN PLACED, DRAINING WELL ON GRAVITY. WITH ONGOING IVF NS AT 75 ML/HR INFUSING WELL ON R HAND IV LINE 20G. PT IS ON ONGOING GTF OF JEVITY 1.2 AT 70 ML/HR, TOLERATING WELL, 5ML RESIDUAL NOTED. GT INTACT AND IN PLACED. DRESSING CHANGED. HOB ELEVATED. SAFETY MEASURES, ASPIRATION AND SEIZURE PRECAUTION IN PLACED. CALL LIGHT WITHIN REACH. WILL CONT TO MONITOR
[2017-10-05] MEDS: IV NS 0.9% 1,000 ML IV PRN (03:27)
[2017-10-05] MEDS: JEVITY 1.2 CAL 1,000 ML BOTTLE GT PRN (03:27)
[2017-10-05] MEDS: ACETAMINOPHEN 650 MG/20.3 ML UDC GT PRN (03:40)
--- NOTE | 2017-10-05 03:40 | NUR ---
PRN TYLENOL GIVEN PT'S BODY TEMP NOTED TO BE 99.2 AXILLARY, COLS SPONGING DONE, REMOVED EXTRA CLOTHING, PRN TYLENOL GIVEN ORDERED. WILL MONITOR CLOSELY.
[2017-10-05 04:00] VITALS: BP 106/66
--- NOTE | 2017-10-05 07:05 | NUR ---
SAS BI DEVELOPER CLOSING NOTES PT RESTING IN BED WITH EYES CLOSED. A/OX1. TOLERATING RA WELL, NO SOB NOTED AT THIS TIME. NO S/S OF PAIN AT THIS TIME. SR 80 ON TELE MONITOR. BODY TEMP 98.2 AXILLARY, TYLENOL WAS HELPFUL TO DECREASE BODY TEMP DOWN. FC IN PLACED, DRAINING WELL ON GRAVITY. WITH ONGOING IVF NS AT 75 ML/HR INFUSING WELL ON R HAND IV LINE 20G. PT IS ON ONGOING GTF OF JEVITY 1.2 AT 70 ML/HR, TOLERATING WELL, 2ML RESIDUAL NOTED. GT INTACT AND IN PLACED. HOB ELEVATED. SAFETY MEASURES, ASPIRATION AND SEIZURE PRECAUTION IN PLACED. CALL LIGHT WITHIN REACH. ENDORSED TO AM RN FOR CONTINUITY OF CARE.
--- NOTE | 2017-10-05 07:20 | NUR ---
RN OPENING NOTES RECEIVED PT. PT IS STABLE AND RESTING IN BED, PT IS NONVERBAL, A/OX1 ONLY ABLE TO RESPOND TO NAME. NO S/S OF RESP DISTRESS OR SOB. TELE MONITOR IN PLACE READING SR AT [address] GT FEEDING OF JEVITY 1.2 INFUSING AT 70 ML/HR. SAFETY MEASURES IN PLACE, CALL LIGHT WITHIN REACH. WILL CONTINUE TO MONITOR.
--- NOTE | 2017-10-05 07:45 | NUR ---
NOTIFIED & SPOKE TO FAMILY MEMBER XIANG AGUIAR ABOUT THE TRANSFER OF THE PT TO MS UNIT TO ROOM 312-1.
[2017-10-05 08:00] VITALS: BP 125/74
[2017-10-05 08:01] LABS: BASOPHILS % (AUTO) 0.3 % (0.0-2.0); EOSINOPHILS % (AUTO) 4.4 % (0.0-6.0); HEMATOCRIT 43 % (39-51); HEMOGLOBIN 13.8 g/dL (13.5-17.5); LYMPHOCYTES # (AUTO) 1.8 /CMM (0.8-4.8); MEAN CORPUSCULAR HEMOGLOBIN 28 PG (26.0-33.0); MEAN CORPUSCULAR HGB CONC 33 g/dl (31.0-36.0); MEAN CORPUSCULAR VOLUME 86 fL (80-96); MONOCYTES # (AUTO) 1.3 /CMM (0.1-1.30); MONOCYTES % (AUTO) 10.8 % (2.0-12.0); NEUTROPHILS # (AUTO) 8.5 /CMM (1.8-8.9); NEUTROPHILS % (AUTO) 69.5 % (43.0-81.0); PLATELET COUNT (AUTO) 292 /CMM (150-450); RDW COEFFICIENT OF VARIATION 13.9 (11.5-15.0); RED BLOOD CELL COUNT(AUTO) 4.95 MIL/uL (4.5-6.0); WHITE BLOOD COUNT (AUTO) 12.2 K/uL (4.3-11.0)
[2017-10-05 08:04] LABS: CALCIUM, SERUM 8.1 mg/dL (8.5-10.1); CREATININE 0.6 mg/dL (0.6-1.3); POTASSIUM 3.9 mmol/L (3.5-5.1)
[2017-10-05] MEDS: CEFTRIAXONE 1 G in IV D5W 50 ML IV SCH (08:22)
[2017-10-05] MEDS: PANTOPRAZOLE 40 MG VIAL IV SCH (08:22)
[2017-10-05] MEDS: LACTOBACILLUS RHAMNOSUS GG 1 EACH CAP.SPRINK GT SCH (08:23)
[2017-10-05] MEDS: DOCUSATE SODIUM LIQ 100 MG/10 ML UDC GT SCH (08:23)
[2017-10-05] MEDS: LamoTRIgine 25 MG TABLET GT SCH (08:23)
[2017-10-05] MEDS: VITAMIN B COMP W-C 1 TAB TABLET GT SCH (08:23)
[2017-10-05] MEDS: PHENOBARBITAL 60 MG/15 ML UDC GT SCH (08:28)
[2017-10-05] MEDS: ENOXAPARIN SODIUM 40 MG/0.4 ML DISP.SYRIN SQ SCH (08:30)
--- NOTE | 2017-10-05 09:19 | NUR ---
RN NOTES LIQUID CALCIUM CARBONATE NOT AVAILABLE IN EITHER OMNICELLS OR CASSETTE. INFORMED PHARMACY, AWAITING DELIVERY OF MED FOR ADMIN.
--- NOTE | 2017-10-05 10:45 | NUR ---
RN NOTES CALCIUM GLUCONATE GIVEN LATE DUE TO LATE RECEIPT FROM PHARMACY.
[2017-10-05] MEDS: CALCIUM CARBONATE 1,250 MG/5 ML UDC GT SCH (10:48)
[2017-10-05] MEDS: HYDROCODONE/APAP 5/325MG 1 EACH TABLET GT PRN (10:53)
--- NOTE | 2017-10-05 15:00 | NUR ---
DISCHARGE NOTE PT DISCHARGED TO [facility]. PT IS STABLE, BP SLIGHTLY LOW, HOWEVER WITHIN HIS NORMAL RANGE. REPORT GIVEN TO RN AT [facility]. DISCHARGE TEACHING PERFORMED, PT UNABLE TO VERBALIZE UNDERSTANDING OF TEACHING. PT UNABLE TO SIGN DISCHARGE INSTRUCTIONS AND BELONGINGS SHEET, COSIGNED BY SECOND LICENSED NURSE. FC, IV ACCESS AND ID BAND REMOVED. PRESCRIPTIONS FOR PHENOBARBITOL AND KEFLEX COPIED AND PLACED IN CHART. PT LEFT HOSPITAL IN AMBULANCE WITH PSYCHOLOGY INTERN TRANSPORT.
== END 2017-10-05 15:00 | DRG 720 ==
LOC: ER 05:03 → TELE-TD 07:10 → TELE1 10-01 11:07 → TELE 10-05 03:02 → MED 10-05 09:03
PROVIDERS: ADMIT Legal Medicine; ATTEND Legal Medicine
DX: A41.9 Sepsis, unspecified organism (principal); G93.49 Other encephalopathy; J18.9 Pneumonia, unspecified organism; D68.59 Other primary thrombophilia; G81.94 Hemiplegia, unspecified affecting left nondominant side; R13.10 Dysphagia, unspecified; J98.11 Atelectasis; G40.909 Epilepsy, unspecified, not intractable, without status epilepticus; N39.0 Urinary tract infection, site not specified; Z87.820 Personal history of traumatic brain injury; Z87.440 Personal history of urinary (tract) infections; S01.90XS Unspecified open wound of unspecified part of head, sequela; X58.XXXS Exposure to other specified factors, sequela; W34.00XS Accidental discharge from unspecified firearms or gun, sequela; Z79.51 Long term (current) use of inhaled steroids; B96.89 Other specified bacterial agents as the cause of diseases classified elsewhere; Z74.09 Other reduced mobility; Z93.1 Gastrostomy status
CPT/HCPCS: 36415; 70450-TC; 71045-TC; 80048-TC; 80061-TC; 80076-TC; 80184-TC; 81000-TC; 82542; 82962-TC; 83605-TC; 83735-TC; 84100-TC; 85025-TC; 85730-TC; 87040-TC; 87081-TC; 92526; 92611-TC; A4606; C9113; G0480; J0456; J0696; J1650; J1953; J2060; J2560; J7030; J7040; J7060; Z7610

== ENCOUNTER 2017-11-14 16:07 | Inpatient (IN) | payer MEDICAID ==
[~2017-11-14] VITALS: Ht 172.7 cm; Wt 88.0 kg
[~2017-11-14 16:07] MED LIST changes: +ACET325C5 GT; -ALBU2.5V13 IH; -BACL20TA GT; -IPRA0.2S9 IH; +LAMO25TA5 GT; -LEVE100S GT; +SACC250C GT; +VITA1CAP GT; -VITA1TAB56 GT
--- NOTE | 2017-11-14 16:15 | NUR ---
BIB PRIVATE EMT FROM [facility], FOR LEAKING G-TUBE/FOR REPLACEMENT. SEEN BY MD FOR EVAL. VSS. SAFETY AND COMFORT MEASURES PROVIDED. WILL MONITOR.
[2017-11-14] MEDS ORDERED: IV NS 0.9% 1,000 ML BAG IV ONE (16:30)
[2017-11-14] MEDS ORDERED: HYDROMORPHONE 1 MG/1 ML DISP.SYRIN ONE (16:30)
[2017-11-14] MEDS ORDERED: HYDROMORPHONE INJ 0.5 MG/0.5 ML SYRINGE IV ONE (16:30)
[2017-11-14] MEDS ORDERED: LIDOCAINE 2% 20 ML MDV TP ONE (16:30)
--- NOTE | 2017-11-14 16:40 | NUR ---
IV ACCESS STARTED. BLOOD DRAWN FOR LABS. URINE SAMPLE OBTAINED VIA IN AND OUT CATH.
[2017-11-14] MEDS ORDERED: LIDOCAINE 2% 20 ML MDV ONE (16:47)
[2017-11-14] MEDS ORDERED: LIDOCAINE VISCOUS 2% UD 15 ML UDC ONE (16:50)
[2017-11-14 16:55] LABS: BASOPHILS % (AUTO) 0.4 % (0.0-2.0); HEMATOCRIT 49 % (39-51); HEMOGLOBIN 15.5 g/dL (13.5-17.5); LYMPHOCYTES # (AUTO) 2.4 /CMM (0.8-4.8); MEAN CORPUSCULAR HEMOGLOBIN 27 PG (26.0-33.0); MEAN CORPUSCULAR HGB CONC 32 g/dl (31.0-36.0); MEAN CORPUSCULAR VOLUME 85 fL (80-96); MONOCYTES % (AUTO) 10.3 % (2.0-12.0); NEUTROPHILS # (AUTO) 5.9 /CMM (1.8-8.9); NEUTROPHILS % (AUTO) 60.3 % (43.0-81.0); PLATELET COUNT (AUTO) 324 /CMM (150-450); RDW COEFFICIENT OF VARIATION 14.2 (11.5-15.0); RED BLOOD CELL COUNT(AUTO) 5.75 MIL/uL (4.5-6.0); WHITE BLOOD COUNT (AUTO) 9.8 K/uL (4.3-11.0)
[2017-11-14 17:09] LABS: ALANINE AMINOTRANSFERASE 89 U/L (12-78); ALBUMIN 3.6 g/dL (3.4-5.0); ALKALINE PHOSPHATASE 107 U/L (46-116); ASPARTATE AMINOTRANSFERASE 33 U/L (15-37); BILIRUBIN,TOTAL 0.2 mg/dL (0.2-1.0); CALCIUM, SERUM 8.8 mg/dL (8.5-10.1); CARBON DIOXIDE 27 mmol/L (21-32); CHLORIDE 105 mmol/L (98-107); CREATININE 0.6 mg/dL (0.6-1.3); GLUCOSE 96 mg/dL (74-106); LIPASE 164 U/L (73-393); SODIUM SERUM 141 mmol/L (136-145); TOTAL PROTEIN, SERUM 7.8 g/dL (6.4-8.2); UREA NITROGEN, BLOOD 6 mg/dL (7-18)
[2017-11-14 17:10] LABS: APPEARANCE,URINE Clear (CLEAR); BILIRUBIN,URINE Negative (NEGATIVE); BLOOD, URINE Trace-intact Ery/uL (NEGATIVE); COLOR,URINE Yellow (YELLOW); KETONES,URINE Negative (NEGATIVE); LEUKOCYTE ESTERASE ,URINE Negative (NEGATIVE); NITRITE, URINE Negative (NEGATIVE); PH,URINE 7.5 (5.0-8.0); PROTEIN,URINE Negative (NEGATIVE); UGLUCOSE Negative (NEGATIVE); UROBILINOGEN,URINE 0.2 EU/dL (0.2)
[2017-11-14 17:11] LABS: TROPONIN I < 0.017 ng/mL (0.00-0.056)
[2017-11-14 17:12] LABS: INR 1.08 (0.87-1.13)
--- NOTE | 2017-11-14 17:18 | NUR ---
CALLED DR POLLOCK, WAS PAGED.
--- NOTE | 2017-11-14 17:21 | NUR ---
CALLED [employer] CAPACITY MANAGER WAS PAGED.
[2017-11-14 17:26] LABS: BACTERIA,URINE None seen /HPF (None Seen); RBC,URINE 0-2 /HPF (0-2); SQUAMOUS EPITHELIAL CELL,UR None Seen /HPF (None Seen); WBC,URINE NONE SEEN /HPF (0-3)
[2017-11-14] MEDS ORDERED: PHEN60TA11 GT (17:35)
--- NOTE | 2017-11-14 17:37 | NUR ---
MD TO CHANGE ORDER OF LIDOCAINE TO VISCOUS.
--- NOTE | 2017-11-14 17:40 | NUR ---
AT FOR GTUBE CHANGE.
--- NOTE | 2017-11-14 17:53 | NUR ---
UPDATED BED 204-1 MS
--- NOTE | 2017-11-14 18:10 | NUR ---
REPORT GIVEN TO CHRISTINE GRAFF FOR MS
[2017-11-14] MEDS ORDERED: LORAZEPAM INJ 2 MG/ML VIAL IV PRN (18:30)
[2017-11-14] MEDS ORDERED: ONDANSETRON HCL/PF 4 MG/2 ML VIAL IVP PRN (18:30)
[2017-11-14] MEDS ORDERED: ACETAMINOPHEN 650 MG/SUPP.RECT RC PRN (18:30)
[2017-11-14] MEDS ORDERED: Z GUARD REMEDY 2 OZ OINT TP PRN (18:30)
--- NOTE | 2017-11-14 18:35 | NUR ---
RN MS NOTES RECEIVED PT FROM E.R. STAFF, AWAKE, ALERT, NON VERBAL, ABLE TO NOD OR SHAKE HEAD, NOT IN DISTRESS, DENIES PAIN, ASSISTED TO BED, MADE COMFORTABLE, ROOM SET UP ORIENTATION PROVIDED, NODS IN AGREEMENT, NO BLEEDING NOTED TO GT SITE, VITALS TAKEN AND RECORDED, REPOSITIONED FOR COMFORT.
[2017-11-14 18:45] VITALS: BP 123/78
[2017-11-14] MEDS: IV D5/0.45 NACL 1,000 ML IV PRN (19:00)
--- NOTE | 2017-11-14 19:00 | NUR ---
RN MS NOTES PT SEEN BY CORTNEY MOELLER FOR GI CONSULT, KEPT PT WARM AND COMFORTABLE.
[2017-11-14] MEDS: ENOXAPARIN SODIUM 40 MG/0.4 ML DISP.SYRIN SQ SCH (19:03)
--- NOTE | 2017-11-14 19:40 | NUR ---
RN INITIAL NOTES: RECEIVED REPORT FROM HUDSON GRAFF. PT IN BED, AWAKE, NON VERBAL, ADMITTED FOR GTUBE REPLACEMENT. PER REPORT ER MD TRIED TO PUT BACK GTUBE BUT UNSUCCESSFUL, GTUBE WAS REMOVED, ONLY STOMA LEFT. AREA NOTED TO BE FREE FROM ANY BLEEDING. COVERED WITH DR DRESSING. IV ACCESS PATENT AND FLUSHING WELL, SITE FREE FROM ANY S/S OF INFILTRATION OR REDNESS, INFUSING WITH D5 1/2 NS AT 100ML/HR. SKIN ASSESSMENT PERFORMED, NOTED DISCOLORATIONS, SCAR FROM HEAD SURGERY, SACRAL AREA IS CLEAN NO REDNESS OR PRESSURE ULCER NOTED, TOOK PHOTOS OF G TUBE SITE, PERINEUM IS FREE FROM REDNESS OR EXCORIATION. BLE OFFLOADED. SUCTION SET UP SECURED, KEPT SIDE RAILS PADDED. SAFETY PRECAUTIONS FOR FALL INITIATED, CALL LIGHT IN REACH, WILL CONTINUE MONITORING PT.
[2017-11-14 19:46] VITALS: BP 113/88
[2017-11-14] MEDS: LEVETIRACETAM (500MG) 500 MG in IV NS 0.9% 100 ML IV SCH (19:49)
--- NOTE | 2017-11-14 19:49 | NUR ---
RN NOTES FOR KEPPRA: NEW IV SET UP SECURED FOR KEPPRA, DRUG COMPATIBILITY REPORT NOT AVAILABLE FOR D5 1/2 NS AND KEPRRA IV.
[2017-11-14 20:00] VITALS: BP 113/88
[2017-11-15] MEDS: IV D5/0.45 NACL 1,000 ML IV PRN ×2 (05:06→17:57)
[2017-11-15 06:16] LABS: BASOPHILS % (AUTO) 0.4 % (0.0-2.0); EOSINOPHILS % (AUTO) 5.2 % (0.0-6.0); HEMATOCRIT 44 % (39-51); HEMOGLOBIN 14.1 g/dL (13.5-17.5); LYMPHOCYTES % (AUTO) 26.5 % (20.0-44.0); MEAN CORPUSCULAR HEMOGLOBIN 28 PG (26.0-33.0); MEAN CORPUSCULAR HGB CONC 32 g/dl (31.0-36.0); MEAN CORPUSCULAR VOLUME 86 fL (80-96); MONOCYTES # (AUTO) 0.8 /CMM (0.1-1.30); MONOCYTES % (AUTO) 10.1 % (2.0-12.0); NEUTROPHILS # (AUTO) 4.3 /CMM (1.8-8.9); NEUTROPHILS % (AUTO) 57.8 % (43.0-81.0); PLATELET COUNT (AUTO) 294 /CMM (150-450); RDW COEFFICIENT OF VARIATION 14.7 (11.5-15.0); RED BLOOD CELL COUNT(AUTO) 5.09 MIL/uL (4.5-6.0); WHITE BLOOD COUNT (AUTO) 7.5 K/uL (4.3-11.0)
[2017-11-15 06:32] LABS: CALCIUM, SERUM 8.2 mg/dL (8.5-10.1); CREATININE 0.5 mg/dL (0.6-1.3); PHOSPHORUS 3.2 mg/dL (2.5-4.9); POTASSIUM 3.8 mmol/L (3.5-5.1); THYROID STIMULATING HORMONE 3.859 uIU/mL (0.358-3.74)
--- NOTE | 2017-11-15 06:53 | NUR ---
RN CLOSING NOTES: PT IN BED, AWAKE, NON VERBAL, RESPIRATION EVEN AND UNLABORED. IV ACCESS REMAINS PATENT AND FLUSHING WELL, NO S/S OF INFILTRATION NOTED, INFUSING WITH D5 1/2 NS AT 100 ML/HR. BUE AND BLE OFFLOADED ON PILLOWS. GTUBE STOMA REMAINS WITH DRESSING, C/D/I, NO ACTIVE BLEEDING NOTED. VS REMAINS STABLE, NEEDS ATTENDED. FOR GTUBE REINSERTION BUT NO SCHEDULE YET. SEIZURE PRECAUTION REMAINS IN PLACED. SAFETY PRECAUTIONS FOR FALL REMAIN ENGAGED, CALL LIGHT IN REACH, WILL ENDORSE TO DAY RN FOR CONTINUITY OF CARE.
--- NOTE | 2017-11-15 07:12 | NUR ---
MS/RN Patient received Patient received from plant operator/shift supervisor. Non verbal, total care with ADL's, needs to be turned and repositioned every 2-3 hours, awaitng mattress to be delivered. Safety measures in place, will continue to monitor and ensure safety.
[2017-11-15 08:00] VITALS: BP 108/62
[2017-11-15] MEDS: PANTOPRAZOLE 40 MG VIAL IV SCH (08:26)
[2017-11-15] MEDS: LEVETIRACETAM (500MG) 500 MG in IV NS 0.9% 100 ML IV SCH ×2 (08:26→21:26)
[2017-11-15 09:12] VITALS: BP 105/62
--- NOTE | 2017-11-15 09:35 | NUR ---
MS/RN Labs Morning labs reviewed: Mana jimenez
--- NOTE | 2017-11-15 11:30 | NUR ---
MS/RN EGD/PEG Per nursing city dispatch supervisor, patient is scheduled for EGD.PEG insertion tomorrow morning at 0930.
--- NOTE | 2017-11-15 12:30 | NUR ---
MS/RN Consent Patient's sister Renu called to obtain twlwphone consent for EGD/PEG placement scheduled for tomorrow. All consents signed and witnessed by two RN's.
--- NOTE | 2017-11-15 13:59 | NUR ---
MS/RN S/B Dr Moore Seen by Dr Moore - labs ordered for tomorrow.
[2017-11-15 15:51] VITALS: BP 98/60
[2017-11-15 15:54] VITALS: BP 98/60
--- NOTE | 2017-11-15 18:33 | NUR ---
MS/RN End note Patient remains in stable condition, skin kept clean and dry, has been turned and repositioned every 2-3 hours to prevent skin breakdown. Patient transferred to isoflex mattress. Remains NPO status, for surgical placement of GT tomorrow morning at 0930, consent forms signed via telephone consent from sister and placed in chart. All needs attended at this time, will endorse to fast food shift supervisor.
[2017-11-15 20:00] VITALS: BP 100/61
[2017-11-15 20:03] LABS: BASOPHILS % (AUTO) 0.3 % (0.0-2.0); HEMATOCRIT 48 % (39-51); HEMOGLOBIN 15.2 g/dL (13.5-17.5); LYMPHOCYTES # (AUTO) 2.1 /CMM (0.8-4.8); LYMPHOCYTES % (AUTO) 29.9 % (20.0-44.0); MEAN CORPUSCULAR HEMOGLOBIN 27 PG (26.0-33.0); MEAN CORPUSCULAR HGB CONC 31 g/dl (31.0-36.0); MEAN CORPUSCULAR VOLUME 86 fL (80-96); MONOCYTES # (AUTO) 0.7 /CMM (0.1-1.30); MONOCYTES % (AUTO) 9.7 % (2.0-12.0); NEUTROPHILS # (AUTO) 3.8 /CMM (1.8-8.9); NEUTROPHILS % (AUTO) 55.1 % (43.0-81.0); PLATELET COUNT (AUTO) 304 /CMM (150-450); RDW COEFFICIENT OF VARIATION 14.8 (11.5-15.0); RED BLOOD CELL COUNT(AUTO) 5.61 MIL/uL (4.5-6.0); WHITE BLOOD COUNT (AUTO) 6.9 K/uL (4.3-11.0)
[2017-11-15 20:09] LABS: CALCIUM, SERUM 8.6 mg/dL (8.5-10.1); CREATININE 0.5 mg/dL (0.6-1.3); POTASSIUM 3.8 mmol/L (3.5-5.1)
[2017-11-15 20:18] LABS: INR 1.12 (0.87-1.13)
--- NOTE | 2017-11-15 20:24 | NUR ---
LUIS MANUEL VOGEL AWAKE, NO SOB, TRYING TO COMMUNICATE.. ALL NEED ATTENDED. REPOSITIONED, KEPT COMFORTABLE. PRESENT IVF INFUSING WELL. KEPT DRY AND CLEAN. TO CONTINUE. EKG DONE. KEPT NPO
[2017-11-15] MEDS: ENOXAPARIN SODIUM 40 MG/0.4 ML DISP.SYRIN SQ SCH (21:26)
--- NOTE | 2017-11-16 00:25 | NUR ---
MSRN STILL VERBALIZING FEELING HUNGRY, REMINDED NOTHING BY MOUTH, AND WILL HAVE PROCEDURE IN AM. IVF CONTINUED.
[2017-11-16] MEDS: IV D5/0.45 NACL 1,000 ML IV PRN ×2 (04:05→17:58)
--- NOTE | 2017-11-16 05:00 | NUR ---
MSRN AM CARE DONE BY NEEDLE LOOM TENDER, REMAINS COOPERATIVE. INCONTINENT, KEPT DRY CLEAN AND COMFORTABLE. REPOSITIONED FOR COMFORT.
--- NOTE | 2017-11-16 06:13 | NUR ---
MSRN REFUSES BLOOD DRAW. EXPLAINED NEED BLOOD WORK FOR PROCEDURE TODAY, AGREED.
[2017-11-16 06:43] LABS: BASOPHILS % (AUTO) 0.6 % (0.0-2.0); EOSINOPHILS % (AUTO) 5.2 % (0.0-6.0); HEMATOCRIT 48 % (39-51); HEMOGLOBIN 15.3 g/dL (13.5-17.5); LYMPHOCYTES # (AUTO) 2.4 /CMM (0.8-4.8); LYMPHOCYTES % (AUTO) 32.1 % (20.0-44.0); MEAN CORPUSCULAR HEMOGLOBIN 27 PG (26.0-33.0); MEAN CORPUSCULAR HGB CONC 32 g/dl (31.0-36.0); MEAN CORPUSCULAR VOLUME 85 fL (80-96); MONOCYTES # (AUTO) 0.7 /CMM (0.1-1.30); MONOCYTES % (AUTO) 9.6 % (2.0-12.0); NEUTROPHILS # (AUTO) 3.9 /CMM (1.8-8.9); NEUTROPHILS % (AUTO) 52.5 % (43.0-81.0); PLATELET COUNT (AUTO) 315 /CMM (150-450); RDW COEFFICIENT OF VARIATION 14.5 (11.5-15.0); RED BLOOD CELL COUNT(AUTO) 5.65 MIL/uL (4.5-6.0); WHITE BLOOD COUNT (AUTO) 7.5 K/uL (4.3-11.0)
[2017-11-16 06:49] LABS: CALCIUM, SERUM 8.5 mg/dL (8.5-10.1); CREATININE 0.6 mg/dL (0.6-1.3); POTASSIUM 3.5 mmol/L (3.5-5.1)
--- NOTE | 2017-11-16 07:20 | NUR ---
RN OPENING MS NOTES RECEIVED PATIENT AWAKE, ABLE TO COMMUNICATE THROUGH GESTURES, RESPIRATIONS EVEN AND UNLABORED, IN NO APPARENT PAIN OR DISCOMFORT AT THIS TIME. IV ACCESS TO LEFT HAND 20G PATENT AND INTACT NO REDNESS OR INFILTRATION NOTED. PT FOR GTUBE PLACEMENT TODAY, WILL COMPLETE PREOP CHECK LIST. ALL SAFETY MEASURES IN PLACE, KEPT CLEAN DRY AND COMFORTABLE, WILL CONTINUE TO MONITOR.
[2017-11-16 08:00] VITALS: BP 121/73
[2017-11-16] MEDS: PANTOPRAZOLE 40 MG VIAL IV SCH (08:12)
[2017-11-16] MEDS: LEVETIRACETAM (500MG) 500 MG in IV NS 0.9% 100 ML IV SCH ×2 (08:12→20:18)
[2017-11-16 08:14] VITALS: BP 121/73
[2017-11-16] MEDS ORDERED: FENTANYL PF 100MCG/2ML AMPUL ONE (08:53)
[2017-11-16] MEDS ORDERED: MIDAZOLAM HCL 2 MG/2ML VIAL ONE (08:54)
[2017-11-16] MEDS ORDERED: METOCLOPRAMIDE HCL 10 MG/2 ML VIAL ONE (08:55)
--- NOTE | 2017-11-16 09:10 | NUR ---
RN NOTES PATIENT TAKEN TO OR BY TRANSPORTER, NOTED IN STABLE CONDITION, WILL CONTINUE TO MONITOR UPON RETURN TO UNIT
--- NOTE | 2017-11-16 11:10 | NUR ---
RN NOTES/ROUNDS PATIENT BACK FROM OR, PER REPORT FROM RN, PT UNABLE TO HAVE PEG PLACED, PT SEEN AND EXAMINED BY DR BARKER, PER DNP WILL CONTACT SURGEON TO HAVE PEG SURGICALLY PLACED, WILL CONTINUE TO MONITOR
[2017-11-16 16:15] VITALS: BP 116/69
--- NOTE | 2017-11-16 18:26 | NUR ---
RN NOTES CALLED FAMILY MEMBER COSME TO ATTEMPT TO OBTAIN CONSENT FOR PROCEDURE WITH NO ANSWER LEFT MESSAGE WILL REATTEMPT
--- NOTE | 2017-11-16 18:54 | NUR ---
RN NOTES CALLED FAMILY MEMBER COSME TO REATTEMPT TO OBTAIN CONSENT FOR PROCEDURE WITH NO ANSWER LEFT MESSAGE WILL ENDORSE TO [place]A MAORI
--- NOTE | 2017-11-16 18:55 | NUR ---
RN CLOSING MS NOTES PATIENT AWAKE, ABLE TO COMMUNICATE THROUGH GESTURES, RESPIRATIONS EVEN AND UNLABORED, IN NO APPARENT PAIN OR DISCOMFORT AT THIS TIME. IV ACCESS TO LEFT HAND 20G PATENT AND INTACT NO REDNESS OR INFILTRATION NOTED. PT FOR GTUBE PLACEMENT TOMORROW ATTEMPTED TO CALL FOR CONSENT NO ANSWER LEFT MESSAGE. ALL SAFETY MEASURES IN PLACE, KEPT CLEAN DRY AND COMFORTABLE, WILL CONTINUE TO MONITOR AND ENDORSE TO NEXT SHIFT FOR CONTINUITY OF CARE
--- NOTE | 2017-11-16 19:23 | NUR ---
RN MS RECEIVING NOTES PATIENT RECEIVED FROM [facility]. PATIENT IS MED/SURG. PATIENT IS AWAKE, NONVERBAL BUT ABLE TO COMMUNICATE THROUGH GESTURES. BREATHING EVEN AND UNLABORED. NO SOB NOTED - TOLERATING ROOM-AIR. NO COMPLAINTS OF PAIN OR DISCOMFORT. NO FACIAL GRIMACING. IV LINE ON LEFT HAND 20G INTACT AND PATENT. NO GTUBE AT THE MOMENT. WILL REATTEMPT TO INSERT TOMORROW IF CONSENT IS OBTAINED. ALL OTHER NEEDS ATTENDED TO. SAFETY MEASURES IN PLACE. CALL LIGHT WITHIN REACH. BED ON LOWEST LOCKED POSITION. WILL CONTINUE TO MONITOR.
[2017-11-16 20:00] VITALS: BP 105/71
[2017-11-16] MEDS: ENOXAPARIN SODIUM 40 MG/0.4 ML DISP.SYRIN SQ SCH (21:00)
--- NOTE | 2017-11-16 21:00 | NUR ---
RN MS NOTES LOVENOX NOT GIVEN. PATIENT WITH EGD WITH PEG PLACEMENT SCHEDULED FOR TOMORROW AM.
--- NOTE | 2017-11-16 22:50 | NUR ---
RN MS NOTES CONSENT FOR EGD WITH POSSIBLE BIOPSY, CAUTERIZATION, PHOTOGRAPHY, AND CYTOLOGY WITH PEG PLACEMENT OBTAINED OVER THE PHONE WITH COSME OTOOLE (SISTER). PLACED IN PATIENT'S CHART.
[2017-11-17] MEDS: IV D5/0.45 NACL 1,000 ML IV PRN ×2 (05:46→23:47)
--- NOTE | 2017-11-17 06:32 | NUR ---
RN MS CLOSING NOTES PATIENT IS AWAKE, NONVERBAL BUT ABLE TO COMMUNICATE THROUGH GESTURES. NO ACUTE CHANGES THROUGHOUT SHIFT. BREATHING EVEN AND UNLABORED. NO SOB NOTED - TOLERATING ROOM-AIR. NO COMPLAINTS OF PAIN OR DISCOMFORT. NO FACIAL GRIMACING. IV LINE ON LEFT HAND 20G INTACT AND PATENT. KEPT NPO. PATIENT SCHEDULED FOR EGD WITH PEG PLACEMENT. CONSENT IN CHART. ALL OTHER NEEDS ATTENDED TO. SAFETY MEASURES IN PLACE. CALL LIGHT WITHIN REACH. BED ON LOWEST LOCKED POSITION. WILL ENDORSE TO ONCOMING NURSE FOR CONTINUITY FOR CARE.
--- NOTE | 2017-11-17 07:30 | NUR ---
MS RN RECEIVED ON BED, AWAKE, NOT IN ANY FORM OF DISTRESS, RESPIRATIONS EVEN AND UNLABORED, NO SOB NOTED, LUNGS HAVE CRACKLES,ABDOMEN SOFT,POSITIVE BOWEL SOUNDS, DENIES PAIN AT THIS TIME, WILL MONITOR PATIENT.
[2017-11-17 08:00] VITALS: BP 101/68
--- NOTE | 2017-11-17 08:40 | NUR ---
MS GRAFF IV MEDS GIVEN, NPO AT THIS TIME, WILL HAVE A PEG PLACEMENT TODAY.
[2017-11-17] MEDS: LEVETIRACETAM (500MG) 500 MG in IV NS 0.9% 100 ML IV SCH (08:54)
[2017-11-17] MEDS: PANTOPRAZOLE 40 MG VIAL IV SCH (08:54)
--- NOTE | 2017-11-17 09:10 | NUR ---
MS RN 'PATIENT WENT DOWN FOR PEG PLACEMENT.
--- NOTE | 2017-11-17 11:50 | NUR ---
MS GRAFF PATENT CAME BACK FROM SURGERY,WILL MONITOR PATIENT.
[2017-11-17] MEDS ORDERED: MORPHINE SULFATE INJ 2 MG/ML DISP.SYRIN IV PRN (12:30)
--- NOTE | 2017-11-17 12:36 | NUR ---
MS RN CALLED [facility] FOR DIET ORDER(PUREE AND FEEDER)
[2017-11-17] MEDS ORDERED: MORPHINE SULFATE INJ 4 MG/ML DISP.SYRIN IV PRN (14:00)
[2017-11-17 16:00] VITALS: BP 117/74
--- NOTE | 2017-11-17 16:00 | NUR ---
MS RN TEXT KATHLEEN BARKER TO RECONCILE, MEDS.
--- NOTE | 2017-11-17 18:51 | NUR ---
MS RN PATIENT JUST FINISHED EATING,NO DISTRESS NOTED,ALL NEEDS ATTENDED.
[2017-11-17] MEDS ORDERED: NA PHOS,M-B/NA PHOS,DI-BA 1 EA ENEMA RC PRN (19:30)
[2017-11-17] MEDS ORDERED: BISACODYL SUPP (10 MG) 10 MG/SUPP.RECT SUPP.RECT RC PRN (19:30)
[2017-11-17] MEDS ORDERED: LORAZEPAM INJ 2 MG/ML VIAL IM PRN (19:30)
[2017-11-17] MEDS ORDERED: MAGNESIUM HYDROXIDE 30 ML UDC GT PRN (19:30)
--- NOTE | 2017-11-17 19:30 | NUR ---
RN MS OPENING NOTES RECEIVED PATIENT AWAKE, NONVERBAL BUT ABLE TO COMMUNICATE THROUGH GESTURES. BREATHING EVEN AND UNLABORED. NO SOB NOTED - ON 2L OXYGEN VIA NC. NO COMPLAINTS OF PAIN OR DISCOMFORT. NO FACIAL GRIMACING. PATIENT IS S/P EGD WITH PEG PLACEMENT - PEG TUBE INTACT AND PATENT. IV LINE ON LEFT HAND 20G INTACT AND PATENT. ALL OTHER NEEDS ATTENDED TO. SAFETY MEASURES IN PLACE. CALL LIGHT WITHIN REACH. BED ON LOWEST LOCKED POSITION. WILL CONTINUE TO MONITOR.
--- NOTE | 2017-11-17 19:35 | NUR ---
RN MS TELLY WANG FROM PHARMACY CALLED REGARDING PATIENT'S MED RECON INDICATING 3 SEIZURE MEDICATIONS: KEPPRA, LAMICTAL, AND PHENOBARBITAL AND WANTED CLARIFICATION IF PATIENT SHOULD BE ON ALL 3. PAGED DATA COORDINATOR KATHLEEN BARKER AND CLARIFIED ALL THREE MEDICATIONS, AND IF PATIENT SHOULD CONTINUE EACH OF THEM, PER DATA COORDINATOR LUCERO, OK TO CONTINUE ALL OF THEM.
[2017-11-17 20:00] VITALS: BP 109/74
[2017-11-17] MEDS ORDERED: ACETAMINOPHEN 650 MG/20.3 ML UDC GT PRN (20:00)
[2017-11-17] MEDS: LamoTRIgine 25 MG TABLET GT SCH (20:16)
[2017-11-17] MEDS: LACTOBACILLUS RHAMNOSUS GG 1 EACH CAP.SPRINK GT SCH (20:16)
[2017-11-17] MEDS: PHENOBARBITAL 60 MG/15 ML UDC GT SCH (20:16)
[2017-11-17] MEDS: LEVETIRACETAM SOL (5 ML) 100 MG/ML UDC GT SCH (20:16)
[2017-11-17] MEDS: ENOXAPARIN SODIUM 40 MG/0.4 ML DISP.SYRIN SQ SCH (20:17)
[2017-11-18 07:07] LABS: CALCIUM, SERUM 8.2 mg/dL (8.5-10.1); CREATININE 0.6 mg/dL (0.6-1.3); MAGNESIUM 1.6 mg/dL (1.8-2.4); PHOSPHORUS 2.4 mg/dL (2.5-4.9); POTASSIUM 2.9 mmol/L (3.5-5.1)
--- NOTE | 2017-11-18 07:14 | NUR ---
RN MS CLOSING NOTES PATIENT RESTING IN BED. NONVERBAL BUT ABLE TO COMMUNICATE THROUGH GESTURES. NO ACUTE CHANGES THROUGHOUT SHIFT. BREATHING EVEN AND UNLABORED. NO SOB NOTED - ON 2L OXYGEN VIA NC. NO COMPLAINTS OF PAIN OR DISCOMFORT. NO FACIAL GRIMACING. IV LINE ON LEFT HAND 20G INTACT AND PATENT. ALL OTHER NEEDS ATTENDED TO. SAFETY MEASURES IN PLACE. CALL LIGHT WITHIN REACH. BED ON LOWEST LOCKED POSITION. WILL ENDORSE TO ONCOMING NURSE FOR CONTINUITY FOR CARE.
--- NOTE | 2017-11-18 07:35 | NUR ---
ms rn received on bed, awake,oriented x1,not in any form of distress, respiration even and unlabored,no sob noted,s/p peg placement, intact and patent, no residual noted. no s/s of pain at this time, will monitor patient.
[2017-11-18 07:54] LABS: BASOPHILS # (AUTO) 0.1 /CMM (0.0-0.2); BASOPHILS % (AUTO) 0.4 % (0.0-2.0); HEMATOCRIT 43 % (39-51); LYMPHOCYTES # (AUTO) 2.1 /CMM (0.8-4.8); LYMPHOCYTES % (AUTO) 16.8 % (20.0-44.0); MEAN CORPUSCULAR HEMOGLOBIN 28 PG (26.0-33.0); MEAN CORPUSCULAR HGB CONC 32 g/dl (31.0-36.0); MEAN CORPUSCULAR VOLUME 85 fL (80-96); MONOCYTES # (AUTO) 1.2 /CMM (0.1-1.30); MONOCYTES % (AUTO) 9.7 % (2.0-12.0); NEUTROPHILS # (AUTO) 9.2 /CMM (1.8-8.9); NEUTROPHILS % (AUTO) 72.1 % (43.0-81.0); PLATELET COUNT (AUTO) 268 /CMM (150-450); RDW COEFFICIENT OF VARIATION 14.4 (11.5-15.0); RED BLOOD CELL COUNT(AUTO) 5.09 MIL/uL (4.5-6.0); WHITE BLOOD COUNT (AUTO) 12.8 K/uL (4.3-11.0)
[2017-11-18 08:00] VITALS: BP 123/75
[2017-11-18] MEDS ORDERED: VITAMIN B COMP W-C 1 TAB TABLET GT SCH (09:00)
[2017-11-18] MEDS ORDERED: LamoTRIgine 25 MG TABLET GT SCH (09:00)
--- NOTE | 2017-11-18 09:20 | NUR ---
ms escobar breakfast served,due meds given,tolerated well.
[2017-11-18] MEDS: DOCUSATE SODIUM LIQ 100 MG/10 ML UDC GT SCH ×2 (09:58→17:39)
[2017-11-18] MEDS: LEVETIRACETAM SOL (5 ML) 100 MG/ML UDC GT SCH (09:58)
[2017-11-18] MEDS: LamoTRIgine 25 MG TABLET GT SCH (09:58)
[2017-11-18] MEDS: PANTOPRAZOLE 40 MG VIAL IV SCH (09:58)
[2017-11-18] MEDS: PHENOBARBITAL 60 MG/15 ML UDC GT SCH (09:58)
[2017-11-18] MEDS: LACTOBACILLUS RHAMNOSUS GG 1 EACH CAP.SPRINK GT SCH ×2 (09:58→17:39)
[2017-11-18] MEDS ORDERED: MAGNESIUM OXIDE 400 MG TABLET PO ONE (10:00)
[2017-11-18] MEDS: POTASSIUM CHLORIDE 20 MEQ POWDER PACKET NG SCH ×3 (10:25→14:11)
[2017-11-18] MEDS ORDERED: NEUTRA PHOS 1 POWD.PACKET PO ONE (11:30)
[2017-11-18 16:00] VITALS: BP 113/77
[2017-11-18] MEDS ORDERED: LEVE100S GT (16:30)
--- NOTE | 2017-11-18 19:00 | NUR ---
MS RN ON BED, NO DISTRESS NOTED.
--- NOTE | 2017-11-18 19:15 | NUR ---
MS RN OPENING NOTE RECEIVE PATIENT AWAKE IN BED, A/O X 1, NO SOB OR DISTRESS NOTED, CALL LIGHT WITHIN REACH. SAFETY MEASURES IMPLEMENTED. WILL CONTINUE TO MONITOR THROUGHOUT SHIFT.
--- NOTE | 2017-11-18 19:16 | NUR ---
report gave back to the primary nurse am
[2017-11-19] MEDS ORDERED: CEFT2VIA13 IJ (13:22)
== END 2017-11-18 20:26 | DRG 252 ==
LOC: ER 16:10 → MEDSG2 17:55 → MED 11-16 19:27
PROC: 0DJ08ZZ Inspection of Upper Intestinal Tract, Via Natural or Artificial Opening Endoscopic (ICD-10-PCS; principal; 2017-11-16 09:30)
PROC: 0DH63UZ Insertion of Feeding Device into Stomach, Percutaneous Approach (ICD-10-PCS; 2017-11-17)
DX: K94.23 Gastrostomy malfunction (principal); G93.49 Other encephalopathy; R53.2 Functional quadriplegia; R13.10 Dysphagia, unspecified; D68.59 Other primary thrombophilia; G40.909 Epilepsy, unspecified, not intractable, without status epilepticus; Y84.8 Other medical procedures as the cause of abnormal reaction of the patient, or of later complication, without mention of misadventure at the time of the procedure; Y73.8 Miscellaneous gastroenterology and urology devices associated with adverse incidents, not elsewhere classified; Y92.129 Unspecified place in nursing home as the place of occurrence of the external cause; Z87.820 Personal history of traumatic brain injury; W34.00XS Accidental discharge from unspecified firearms or gun, sequela; Z79.899 Other long term (current) drug therapy; R62.7 Adult failure to thrive; Z74.01 Bed confinement status; Z86.14 Personal history of Methicillin resistant Staphylococcus aureus infection; Z98.890 Other specified postprocedural states
CPT/HCPCS: 36415; 43246; 71045-TC; 80048-TC; 80061-TC; 80076-TC; 81000-TC; 83690-TC; 83735-TC; 84100-TC; 84443-TC; 84484-TC; 85025-TC; 85610-TC; 85730-TC; 87081-TC; 87086-TC; A4606; A6402; A6403; C9113; J1170; J1650; J1953; J2250; J2270; J2405; J2704; J2765; J3010; J3490; J7030; J7050; Z7610

== ENCOUNTER 2018-06-14 16:06 | Emergency (ER) | payer MEDICAID ==
[~2018-06-14] VITALS: Ht 165.1 cm; Wt 68.9 kg
[~2018-06-14 16:06] MED LIST changes: +CEFT2VIA13 IJ; +LEVE100S GT; +PHEN60TA11 GT
--- NOTE | 2018-06-14 16:06 | NUR ---
PT BIB [facility] FROM SNF FOR LOW O2 SAT WHILE AT THE DINING ROOM; PT NON-VERBAL, PT ON MONITOR, VSS, NAD NOTED, PENDING MD LIU
[2018-06-14 16:55] LABS: BASOPHILS # (AUTO) 0.1 /CMM (0.0-0.2); BASOPHILS % (AUTO) 0.5 % (0.0-2.0); EOSINOPHILS % (AUTO) 2.5 % (0.0-6.0); HEMATOCRIT 49 % (39-51); HEMOGLOBIN 16.4 g/dL (13.5-17.5); LYMPHOCYTES # (AUTO) 1.7 /CMM (0.8-4.8); MEAN CORPUSCULAR HGB CONC 33 g/dl (31.0-36.0); MEAN CORPUSCULAR VOLUME 87 fL (80-96); MONOCYTES # (AUTO) 1.1 /CMM (0.1-1.30); MONOCYTES % (AUTO) 8.8 % (2.0-12.0); NEUTROPHILS # (AUTO) 9.1 /CMM (1.8-8.9); NEUTROPHILS % (AUTO) 74.2 % (43.0-81.0); PLATELET COUNT (AUTO) 334 /CMM (150-450); RED BLOOD CELL COUNT(AUTO) 5.72 MIL/uL (4.5-6.0); WHITE BLOOD COUNT (AUTO) 12.3 K/uL (4.3-11.0)
[2018-06-14] MEDS ORDERED: IV NS 0.9% 500 ML BAG IV ONE (17:00)
[2018-06-14 17:25] LABS: CALCIUM, SERUM 8.8 mg/dL (8.5-10.1); CARBON DIOXIDE 26 mmol/L (21-32); CHLORIDE 105 mmol/L (98-107); CREATININE 0.6 mg/dL (0.6-1.3); GLUCOSE 112 mg/dL (74-106); POTASSIUM 4.1 mmol/L (3.5-5.1); SODIUM SERUM 141 mmol/L (136-145); UREA NITROGEN, BLOOD 8 mg/dL (7-18)
[2018-06-14 17:36] LABS: ALANINE AMINOTRANSFERASE 63 U/L (12-78); ALBUMIN 3.7 g/dL (3.4-5.0); ALKALINE PHOSPHATASE 117 U/L (46-116); ASPARTATE AMINOTRANSFERASE 25 U/L (15-37); B-TYPE NATRIURETIC PEPTIDE 13 PG/ML (0-125); BILIRUBIN,TOTAL 0.1 mg/dL (0.2-1.0); D-DIMER 0.37 mg/L(FEU (0.17-0.50)
--- NOTE | 2018-06-14 18:10 | NUR ---
URINE COLLECTED PER [facility] MAINTENANCE ORDER. SENT TO LAB
--- NOTE | 2018-06-14 18:13 | NUR ---
CALLED , LEFT MESSAGE ON VOICEMAIL
[2018-06-14 18:37] LABS: APPEARANCE,URINE Clear (CLEAR); BILIRUBIN,URINE SMALL (NEGATIVE); BLOOD, URINE Moderate Ery/uL (NEGATIVE); COLOR,URINE Yellow (YELLOW); KETONES,URINE Trace (NEGATIVE); LEUKOCYTE ESTERASE ,URINE Negative (NEGATIVE); NITRITE, URINE Negative (NEGATIVE); PROTEIN,URINE 30 mg/dl (NEGATIVE); UGLUCOSE Negative (NEGATIVE)
[2018-06-14 18:46] LABS: BACTERIA,URINE Rare /HPF (None Seen); SQUAMOUS EPITHELIAL CELL,UR Few /HPF (None Seen); WBC,URINE 0-2 /HPF (0-3)
[2018-06-14] MEDS ORDERED: LEVOFLOXACIN 750 MG /D5W 150ML PIGGYBACK IV ONE (19:00)
--- NOTE | 2018-06-14 19:24 | NUR ---
REPROT GIVEN TO DAJUAN PARISH FOR JUDE
[2018-06-14] MEDS ORDERED: LEVOFLOXACIN 750 MG /D5W 150ML 750 MG in PREMIX 1 EA IV ONE (19:30)
--- NOTE | 2018-06-14 20:06 | NUR ---
CALLED [facility] FOR TRANSPORT BACK TO [facility], ETA 45 MIN, TRIP #[id number]
[2018-06-14 21:05] VITALS: BP 108/70
[2018-06-15] MEDS ORDERED: PIPERACILLIN /TAZOBACTAM 4.5 G in IV D5W 50 ML IV ONE ×2
== END 2018-06-14 21:08 | disposition home or self-care (01) ==
LOC: ER 16:08
DX: R09.02 Hypoxemia (principal); D72.829 Elevated white blood cell count, unspecified; J18.9 Pneumonia, unspecified organism; Y95 Nosocomial condition; Z98.890 Other specified postprocedural states
CPT/HCPCS: 36415; 71045; 80048; 80076; 81001; 83605; 83880; 84484; 85025; 85378; 85730; 87040 ×2; 93005; 96365; 96366; 96368; 99284; A4216; J1956; 81000-TC; J2543; J7060

== ENCOUNTER 2018-07-17 15:56 | Inpatient (IN) | payer MEDICAID ==
[~2018-07-17] VITALS: Ht 167.6 cm; Wt 61.7 kg
[2018-07-17] MEDS ORDERED: BACL10TA GT (16:15)
[2018-07-17] MEDS ORDERED: RANI150T8 GT (16:15)
[2018-07-17] MEDS ORDERED: IPRA3AMP23 IH (16:15)
[2018-07-17] MEDS ORDERED: LEVE100S GT (16:15)
[2018-07-17] MEDS ORDERED: IV NS 0.9% 1,000 ML BAG IV ONE ×2 (16:30→18:00)
[2018-07-17 16:35] LABS: BASOPHILS # (AUTO) 0.1 /CMM (0.0-0.2); BASOPHILS % (AUTO) 0.3 % (0.0-2.0); EOSINOPHILS % (AUTO) 0.3 % (0.0-6.0); HEMATOCRIT 49 % (39-51); HEMOGLOBIN 16.4 g/dL (13.5-17.5); LYMPHOCYTES % (AUTO) 4.2 % (20.0-44.0); MEAN CORPUSCULAR HGB CONC 33 g/dl (31.0-36.0); MEAN CORPUSCULAR VOLUME 86 fL (80-96); MONOCYTES # (AUTO) 1.2 /CMM (0.1-1.30); MONOCYTES % (AUTO) 5.1 % (2.0-12.0); NEUTROPHILS # (AUTO) 20.7 /CMM (1.8-8.9); NEUTROPHILS % (AUTO) 90.1 % (43.0-81.0); PLATELET COUNT (AUTO) 323 /CMM (150-450); RED BLOOD CELL COUNT(AUTO) 5.73 MIL/uL (4.5-6.0); WHITE BLOOD COUNT (AUTO) 22.9 K/uL (4.3-11.0)
[2018-07-17 16:43] LABS: CALCIUM, SERUM 8.9 mg/dL (8.5-10.1); CARBON DIOXIDE 27 mmol/L (21-32); CHLORIDE 105 mmol/L (98-107); CREATININE 0.5 mg/dL (0.6-1.3); GLUCOSE 110 mg/dL (74-106); POTASSIUM 3.9 mmol/L (3.5-5.1); SODIUM SERUM 142 mmol/L (136-145); UREA NITROGEN, BLOOD 5 mg/dL (7-18)
[2018-07-17 16:49] LABS: ALANINE AMINOTRANSFERASE 52 U/L (12-78); ALBUMIN 3.9 g/dL (3.4-5.0); ALKALINE PHOSPHATASE 88 U/L (46-116); ASPARTATE AMINOTRANSFERASE 19 U/L (15-37); BILIRUBIN,DIRECT 0.1 mg/dL (0.0-0.2); BILIRUBIN,TOTAL 0.3 mg/dL (0.2-1.0); LIPASE 81 U/L (73-393)
[2018-07-17 16:54] LABS: APPEARANCE,URINE Clear (CLEAR); BILIRUBIN,URINE Negative (NEGATIVE); BLOOD, URINE Negative Ery/uL (NEGATIVE); COLOR,URINE Yellow (YELLOW); KETONES,URINE Trace (NEGATIVE); LEUKOCYTE ESTERASE ,URINE Negative (NEGATIVE); NITRITE, URINE Negative (NEGATIVE); PROTEIN,URINE Trace mg/dl (NEGATIVE); UGLUCOSE Negative (NEGATIVE); UROBILINOGEN,URINE 0.2 EU/dL (0.2)
[2018-07-17] MEDS ORDERED: CEFTRIAXONE 1GM BAG (ER ONLY) 1 GM/50 ML PIGGYBACK IV ONE (17:00)
[2018-07-17] MEDS ORDERED: AZITHROMYCIN 500 MG in IV D5W 250 ML IV ONE (17:00)
[2018-07-17] MEDS ORDERED: ALBUTEROL FS 2.5 MG/3 ML VIAL.NEB ONE (17:13)
[2018-07-17] MEDS ORDERED: CEFTRIAXONE 1GM BAG (ER ONLY) 50 ML IV ONE (17:24)
[2018-07-17] MEDS ORDERED: ALBUTEROL FS 2.5 MG/3 ML VIAL.NEB CONTNEB ONE (17:30)
[2018-07-17] MEDS ORDERED: oxyCODONE/APAP (5/325 MG) 1 UDTAB TABLET ONE (18:54)
[2018-07-17] MEDS ORDERED: oxyCODONE/APAP (5/325 MG) 1 UDTAB TABLET PO ONE (19:00)
[2018-07-17] MEDS ORDERED: LORAZEPAM INJ 2 MG/ML VIAL IM PRN (20:30)
[2018-07-17] MEDS ORDERED: ZOLPIDEM TARTRATE 5 MG TABLET PO PRN (20:30)
[2018-07-17] MEDS ORDERED: ACETAMINOPHEN 325 MG TABLET PO PRN (20:30)
[2018-07-17] MEDS ORDERED: MAG HYDROX/AL HYDROX/SIMETH 30 ML UDC PO PRN (20:30)
[2018-07-17] MEDS ORDERED: NA PHOS,M-B/NA PHOS,DI-BA 1 EA ENEMA RC PRN (20:30)
[2018-07-17] MEDS ORDERED: Z GUARD REMEDY 2 OZ OINT TP PRN (20:30)
[2018-07-17] MEDS ORDERED: Medication Not On Formulary EA (Ipratropium/Albuterol Sulfate (Duoneb 2.5-0.5 Mg/3 Ml So IH PRN (20:30)
[2018-07-17] MEDS ORDERED: MAGNESIUM HYDROXIDE 30 ML UDC PO PRN (20:30)
[2018-07-17] MEDS ORDERED: BACLOFEN (10 MG) 10 MG TABLET GT PRN (20:30)
[2018-07-17] MEDS ORDERED: BISACODYL SUPP (10 MG) 10 MG/SUPP.RECT SUPP.RECT RC PRN (20:30)
[2018-07-17] MEDS ORDERED: ONDANSETRON HCL/PF 4 MG/2 ML VIAL IVP PRN (20:30)
[2018-07-17] MEDS ORDERED: HYDROCODONE/APAP 5/325MG 1 EACH TABLET PO PRN (20:30)
[2018-07-17] MEDS ORDERED: MAGNESIUM HYDROXIDE 30 ML UDC GT PRN (20:30)
[2018-07-17] MEDS: LEVETIRACETAM SOL (5 ML) 100 MG/ML UDC GT SCH (21:49)
[2018-07-17] MEDS: IV NS 0.9% 1,000 ML IV PRN (21:51)
[2018-07-17 22:27] VITALS: BP 116/65
[2018-07-17 22:30] VITALS: BP 116/65
[2018-07-18] VITALS (10 sets, daily range): BP systolic 81–121; BP diastolic 45–70
[2018-07-18] MEDS ORDERED: PIPERACILLIN /TAZOBACTAM 4.5 G in IV D5W 50 ML IV SCH ×4
[2018-07-18] MEDS ORDERED: IV NS 0.9% 500 ML IV ONE (01:00)
[2018-07-18] MEDS ORDERED: PIPERACILLIN /TAZOBACTAM 2.25 G VIAL IV ONE (03:07)
[2018-07-18 06:52] LABS: BASOPHILS % (AUTO) 0.2 % (0.0-2.0); EOSINOPHILS % (AUTO) 0.7 % (0.0-6.0); HEMATOCRIT 42 % (39-51); HEMOGLOBIN 13.6 g/dL (13.5-17.5); LYMPHOCYTES % (AUTO) 10.8 % (20.0-44.0); MEAN CORPUSCULAR HGB CONC 33 g/dl (31.0-36.0); MEAN CORPUSCULAR VOLUME 87 fL (80-96); MONOCYTES # (AUTO) 1.6 /CMM (0.1-1.30); MONOCYTES % (AUTO) 8.8 % (2.0-12.0); NEUTROPHILS # (AUTO) 14.5 /CMM (1.8-8.9); NEUTROPHILS % (AUTO) 79.5 % (43.0-81.0); PLATELET COUNT (AUTO) 254 /CMM (150-450); RED BLOOD CELL COUNT(AUTO) 4.79 MIL/uL (4.5-6.0); WHITE BLOOD COUNT (AUTO) 18.2 K/uL (4.3-11.0)
[2018-07-18 06:58] LABS: ALBUMIN 2.9 g/dL (3.4-5.0); BILIRUBIN,TOTAL 0.4 mg/dL (0.2-1.0); CREATININE 0.5 mg/dL (0.6-1.3); MAGNESIUM 1.8 mg/dL (1.8-2.4); PHOSPHORUS 2.5 mg/dL (2.5-4.9); POTASSIUM 4.1 mmol/L (3.5-5.1); TOTAL PROTEIN, SERUM 6.2 g/dL (6.4-8.2)
[2018-07-18] MEDS ORDERED: IPRATROPIUM NEB FS 0.5 MG/2.5 ML AMPUL.NEB NEB PRN (08:30)
[2018-07-18] MEDS ORDERED: ALBUTEROL FS 2.5 MG/0.5 ML VIAL.NEB NEB PRN (08:30)
[2018-07-18] MEDS: VITAMIN B COMP W-C 1 TAB TABLET GT SCH (09:29)
[2018-07-18] MEDS: DOCUSATE SODIUM LIQ 100 MG/10 ML UDC GT SCH ×2 (09:29→17:43)
[2018-07-18] MEDS: LamoTRIgine 25 MG TABLET GT SCH ×2 (09:29→17:43)
[2018-07-18] MEDS: LEVETIRACETAM SOL (5 ML) 100 MG/ML UDC GT SCH ×2 (09:29→21:28)
[2018-07-18] MEDS: PHENOBARBITAL 60 MG/15 ML UDC PO SCH ×3 (10:08→17:43)
[2018-07-18] MEDS: ACETAMINOPHEN 650 MG/20.3 ML UDC GT PRN (10:27)
[2018-07-18] MEDS: PIPERACILLIN /TAZOBACTAM 3.375 G in IV D5W 100 ML IV SCH ×2 (10:50→17:43)
[2018-07-18] MEDS: FAMOTIDINE (20 MG) 20 MG TABLET PO SCH (21:28)
[2018-07-18] MEDS: IV NS 0.9% 1,000 ML IV PRN (23:30)
[2018-07-19] VITALS: BP 125/76
[2018-07-19] MEDS: PIPERACILLIN /TAZOBACTAM 3.375 G in IV D5W 100 ML IV SCH ×3 (01:12→16:38)
[2018-07-19 04:00] VITALS: BP 110/73
[2018-07-19 08:00] VITALS: BP_SYST 129; BP_SYST 83; BP_DIAS 50; BP_DIAS 76
[2018-07-19] MEDS: DOCUSATE SODIUM LIQ 100 MG/10 ML UDC GT SCH ×2 (08:46→16:33)
[2018-07-19] MEDS: LEVETIRACETAM SOL (5 ML) 100 MG/ML UDC GT SCH ×2 (08:47→21:24)
[2018-07-19] MEDS: LamoTRIgine 25 MG TABLET GT SCH ×2 (08:47→16:33)
[2018-07-19] MEDS: VITAMIN B COMP W-C 1 TAB TABLET GT SCH (08:48)
[2018-07-19] MEDS: PHENOBARBITAL 60 MG/15 ML UDC PO SCH ×3 (08:48→16:33)
[2018-07-19 12:00] VITALS: BP 104/58
[2018-07-19] MEDS: IV NS 0.9% 1,000 ML IV PRN (15:34)
[2018-07-19] MEDS: ACETAMINOPHEN 650 MG/20.3 ML UDC GT PRN (15:54)
[2018-07-19 16:00] VITALS: BP 105/68
[2018-07-19 20:00] VITALS: BP 116/70
[2018-07-19] MEDS: FAMOTIDINE (20 MG) 20 MG TABLET PO SCH (21:24)
[2018-07-20] VITALS: BP 99/56
[2018-07-20] MEDS: PIPERACILLIN /TAZOBACTAM 3.375 G in IV D5W 100 ML IV SCH ×2 (00:28→09:07)
[2018-07-20 04:00] VITALS: BP 115/66
[2018-07-20] MEDS: IV NS 0.9% 1,000 ML IV PRN (04:41)
[2018-07-20 06:40] LABS: BASOPHILS % (AUTO) 0.4 % (0.0-2.0); EOSINOPHILS % (AUTO) 5.5 % (0.0-6.0); HEMATOCRIT 44 % (39-51); HEMOGLOBIN 14.4 g/dL (13.5-17.5); LYMPHOCYTES % (AUTO) 27.9 % (20.0-44.0); MEAN CORPUSCULAR HGB CONC 33 g/dl (31.0-36.0); MEAN CORPUSCULAR VOLUME 86 fL (80-96); MONOCYTES # (AUTO) 0.7 /CMM (0.1-1.30); NEUTROPHILS # (AUTO) 3.9 /CMM (1.8-8.9); NEUTROPHILS % (AUTO) 56.2 % (43.0-81.0); PLATELET COUNT (AUTO) 250 /CMM (150-450); RED BLOOD CELL COUNT(AUTO) 5.04 MIL/uL (4.5-6.0)
[2018-07-20 07:23] LABS: CALCIUM, SERUM 8.4 mg/dL (8.5-10.1); CREATININE 0.6 mg/dL (0.6-1.3); MAGNESIUM 1.8 mg/dL (1.8-2.4); PHOSPHORUS 2.6 mg/dL (2.5-4.9); POTASSIUM 3.8 mmol/L (3.5-5.1)
[2018-07-20 08:00] VITALS: BP 106/69
[2018-07-20] MEDS: LamoTRIgine 25 MG TABLET GT SCH (09:05)
[2018-07-20] MEDS: PHENOBARBITAL 60 MG/15 ML UDC PO SCH ×2 (09:05→12:35)
[2018-07-20] MEDS: LEVETIRACETAM SOL (5 ML) 100 MG/ML UDC GT SCH (09:06)
[2018-07-20] MEDS: VITAMIN B COMP W-C 1 TAB TABLET GT SCH (09:07)
[2018-07-20] MEDS: DOCUSATE SODIUM LIQ 100 MG/10 ML UDC GT SCH (09:07)
[2018-07-20 12:00] VITALS: BP 125/73
[2018-07-20] MEDS ORDERED: AMOX-427 PO (13:50)
[2018-07-20 16:00] VITALS: BP 115/66
== END 2018-07-20 21:04 | DRG 720 ==
LOC: ER 16:00 → TELE1 19:57 → MEDSG1 07-20 13:18
PROVIDERS: ADMIT Internal Medicine; ATTEND Student in an Organized Health Care Education/Training Program
DX: A41.9 Sepsis, unspecified organism (principal); J96.21 Acute and chronic respiratory failure with hypoxia; G93.41 Metabolic encephalopathy; R53.2 Functional quadriplegia; L89.159 Pressure ulcer of sacral region, unspecified stage; R13.10 Dysphagia, unspecified; Z93.1 Gastrostomy status; G40.909 Epilepsy, unspecified, not intractable, without status epilepticus; Z86.14 Personal history of Methicillin resistant Staphylococcus aureus infection; W34.00XS Accidental discharge from unspecified firearms or gun, sequela; Z98.890 Other specified postprocedural states; Z79.899 Other long term (current) drug therapy; G81.94 Hemiplegia, unspecified affecting left nondominant side; L98.9 Disorder of the skin and subcutaneous tissue, unspecified; F09 Unspecified mental disorder due to known physiological condition
CPT/HCPCS: 36415; 71045-TC; 80048-TC; 80053-TC; 80061-TC; 80076-TC; 81000-TC; 83605-TC; 83690-TC; 83735-TC; 84100-TC; 84484-TC; 85025-TC; 87040-TC; 87081-TC; 87086-TC; 92526; 92611-TC; 94799-TC; A4349; G0378; J0456; J0696; J1953; J2543; J7030; J7040; J7060

== ENCOUNTER 2018-11-11 17:47 | Inpatient (IN) | payer MEDICAID ==
[~2018-11-11] VITALS: Ht 165.1 cm; Wt 62.6 kg
[~2018-11-11 17:47] MED LIST changes: +AMOX-427 PO; +BACL10TA GT; +BISA10SU11 RC; -BISA10SU8 RC; -CEFT2VIA13 IJ; +IPRA3AMP23 IH; +RANI150T8 GT; -SACC250C GT
[2018-11-11] MEDS ORDERED: ACETAMINOPHEN 650 MG/SUPP.RECT RC ONE ×2 (18:00→18:09)
[2018-11-11] MEDS ORDERED: IV NS 0.9% 1,000 ML BAG IV ONE ×2 (18:00→19:30)
[2018-11-11] MEDS ORDERED: HYDR-4384 GT (18:27)
[2018-11-11] MEDS ORDERED: NUT.237L25 GT (18:27)
[2018-11-11] MEDS ORDERED: FAMO20TA8 GT (18:27)
[2018-11-11 18:35] LABS: BASOPHILS % (AUTO) 0.2 % (0.0-2.0); EOSINOPHILS % (AUTO) 0.4 % (0.0-6.0); HEMATOCRIT 44 % (39-51); HEMOGLOBIN 14.7 g/dL (13.5-17.5); LYMPHOCYTES # (AUTO) 1.6 /CMM (0.8-4.8); LYMPHOCYTES % (AUTO) 11.5 % (20.0-44.0); MEAN CORPUSCULAR HGB CONC 33 g/dl (31.0-36.0); MEAN CORPUSCULAR VOLUME 91 fL (80-96); MONOCYTES % (AUTO) 14.7 % (2.0-12.0); NEUTROPHILS # (AUTO) 10.2 /CMM (1.8-8.9); NEUTROPHILS % (AUTO) 73.2 % (43.0-81.0); PLATELET COUNT (AUTO) 296 /CMM (150-450); RED BLOOD CELL COUNT(AUTO) 4.87 MIL/uL (4.5-6.0); WHITE BLOOD COUNT (AUTO) 13.9 K/uL (4.3-11.0)
[2018-11-11 18:44] LABS: POTASSIUM 3.7 mmol/L (3.5-5.1); SODIUM SERUM 144 mmol/L (136-145)
[2018-11-11 18:45] LABS: CALCIUM, SERUM 8.7 mg/dL (8.5-10.1); CARBON DIOXIDE 30 mmol/L (21-32); CHLORIDE 107 mmol/L (98-107); CREATININE 0.5 mg/dL (0.6-1.3); GLUCOSE 149 mg/dL (74-106); UREA NITROGEN, BLOOD 13 mg/dL (7-18)
[2018-11-11 18:51] LABS: ALANINE AMINOTRANSFERASE 59 U/L (12-78); ALBUMIN 3.4 g/dL (3.4-5.0); ALKALINE PHOSPHATASE 130 U/L (46-116); ASPARTATE AMINOTRANSFERASE 25 U/L (15-37); BILIRUBIN,TOTAL 0.1 mg/dL (0.2-1.0); TOTAL PROTEIN, SERUM 7.6 g/dL (6.4-8.2)
--- NOTE | 2018-11-11 19:01 | NUR ---
BIB [facility] FOR WEAKNESS AND FEVER. PATIENT OPENS EYES, NON-VERBAL. BUE CONTRACTED, ATTACHED TO THE MONITOR, CHANGED INTO GOWN. KEPT COMFORTABLE.
--- NOTE | 2018-11-11 19:08 | NUR ---
URINE SAMPLE SENT TO LAB. DR. SAUCEDO AT BEDSIDE.
--- NOTE | 2018-11-11 19:16 | NUR ---
ASSUMED CARE. RECEIVED REPORT FROM AM SHIFT DAJUAN CLAY. PT RESTING IN BED, NO ACUTE DISTRESS NOTED, RESP EVEN AND UNLABORED. PT ON CARDIAC MONITORING, CONTINUOUS POX. CALL LIGHT WITHIN REACH. WILL CONTINUE TO MONITOR PT CLOSELY.
[2018-11-11 19:26] LABS: APPEARANCE,URINE Slightly Cloudy (CLEAR); BILIRUBIN,URINE Negative (NEGATIVE); BLOOD, URINE Negative Ery/uL (NEGATIVE); COLOR,URINE Yellow (YELLOW); KETONES,URINE Negative (NEGATIVE); LEUKOCYTE ESTERASE ,URINE Small (NEGATIVE); NITRITE, URINE Negative (NEGATIVE); PROTEIN,URINE Trace mg/dl (NEGATIVE); UGLUCOSE Negative (NEGATIVE); UROBILINOGEN,URINE 0.2 EU/dL (0.2)
[2018-11-11 19:34] LABS: BACTERIA,URINE Few /HPF (None Seen); SQUAMOUS EPITHELIAL CELL,UR Few /HPF (None Seen)
[2018-11-11 19:35] LABS: RBC,URINE 0-2 /HPF (0-2)
--- NOTE | 2018-11-11 19:43 | NUR ---
ENDORSED TO ED RN FOR JUDE.
[2018-11-11] MEDS ORDERED: CEFTRIAXONE 1GM BAG (ER ONLY) 50 ML IV ONE (19:46)
[2018-11-11] MEDS ORDERED: CEFTRIAXONE 1 G in IV D5W 50 ML IV ONE (20:00)
[2018-11-11] MEDS ORDERED: PIPERACILLIN /TAZOBACTAM 3.375 G in IV D5W 50 ML IV ONE (20:00)
[2018-11-11] MEDS ORDERED: LEVOFLOXACIN 750 MG /D5W 150ML 150 ML IV ONE ×2 (20:00→20:17)
[2018-11-11] MEDS ORDERED: PIPERACILLIN /TAZOBACTAM 3.375 G VIAL IV ONE (20:17)
--- NOTE | 2018-11-11 20:36 | NUR ---
ER MD SPOKE TO DR. POLLARD REGARDING PT ADMISSION. WILL CALL FOR REPORT.
--- NOTE | 2018-11-11 20:51 | NUR ---
REPORT CALLED TO TELE 1 DAJUAN PURI. WILL TRANSPORT PT VIA ACLS PROTOCOL.
[2018-11-11] MEDS ORDERED: MAG HYDROX/AL HYDROX/SIMETH 30 ML UDC PO PRN (21:00)
[2018-11-11] MEDS ORDERED: MAGNESIUM HYDROXIDE 30 ML UDC GT PRN (21:00)
[2018-11-11] MEDS ORDERED: CEFEPIME 1 GM in IV NS 0.9% 50 ML IV SCH (21:00)
[2018-11-11] MEDS ORDERED: HYDROCODONE/APAP 5/325MG 1 EACH TABLET GT PRN (21:00)
[2018-11-11] MEDS ORDERED: LORAZEPAM INJ 2 MG/ML VIAL IM PRN (21:00)
[2018-11-11] MEDS ORDERED: Medication Not On Formulary EA (Ipratropium/Albuterol Sulfate (Duoneb 2.5-0.5 Mg/3 Ml So IH PRN (21:00)
[2018-11-11] MEDS ORDERED: NA PHOS,M-B/NA PHOS,DI-BA 1 EA ENEMA RC PRN (21:00)
[2018-11-11] MEDS ORDERED: BACLOFEN (10 MG) 10 MG TABLET GT PRN (21:00)
[2018-11-11] MEDS ORDERED: ONDANSETRON HCL/PF 4 MG/2 ML VIAL IVP PRN (21:00)
[2018-11-11] MEDS ORDERED: BISACODYL SUPP (10 MG) 10 MG/SUPP.RECT SUPP.RECT RC PRN (21:00)
[2018-11-11] MEDS ORDERED: CEFTRIAXONE 1GM BAG (ER ONLY) 1 GM/50 ML PIGGYBACK IV ONE (21:00)
[2018-11-11] MEDS ORDERED: ZOLPIDEM TARTRATE 5 MG TABLET PO PRN (21:00)
[2018-11-11] MEDS ORDERED: MAGNESIUM HYDROXIDE 30 ML UDC PO PRN (21:00)
[2018-11-11] MEDS ORDERED: Medication Not On Formulary EA (Acetaminophen (Tylenol) 650 MG) GT PRN (21:00)
[2018-11-11] MEDS ORDERED: HYDROCODONE/APAP 5/325MG 1 EACH TABLET PO PRN (21:00)
[2018-11-11 22:00] VITALS: BP 106/62
--- NOTE | 2018-11-11 22:00 | NUR ---
REMINGTON RN OPENING NOTES RECEIVED FROM ER & ADMITTED TO ROOM 105 W/ DX SEPSIS UNDER CARE OF DR POLLARD. PATIENT UNABLE TO AMBULATE, A/A/O X1-2 TO NAME BUT NON-VERBAL & UNABLE TO MAKE NEEDS KNOWN OR STATE PAIN. BREATHING EVEN & UNLABORED, TOLERATING 02 @ 3LPM VIA NC. NO SIGNS OF RESPIRATORY DISTRESS NOTED. SINUS RHYTHM ON THE TELE MONITOR, HR 70S. RIGHT FOREARM IV #20 INTACT & PATENT W/ DRESSING CDI, NO SIGNS OF INFILTRATION NOTED. G-TUBE PATENT & FLUSHING WELL. SKIN ASSESSMENT DONE. SAFETY MEASURES IN PLACE W/ SIDE RAILS & BED ALARM ON. HOB ELEVATED FOR ASPIRATION PRECAUTIONS. WILL CONTINUE TO MONITOR CLOSELY & CARRY ADMISSION ORDERS.
[2018-11-11 22:48] LABS: ALBUMIN 2.8 g/dL (3.4-5.0); BILIRUBIN,DIRECT 0.1 mg/dL (0.0-0.2); BILIRUBIN,TOTAL 0.1 mg/dL (0.2-1.0); TOTAL PROTEIN, SERUM 6.3 g/dL (6.4-8.2)
[2018-11-11] MEDS: LEVETIRACETAM SOL (5 ML) 100 MG/ML UDC GT SCH (23:14)
[2018-11-11] MEDS ORDERED: CEFEPIME 1 GM in IV NS 0.9% 50 ML IV ONE (23:30)
[2018-11-12] MEDS ORDERED: VANCOMYCIN 1 GM in IV D5W 250ml IV ONE (00:30)
[2018-11-12] MEDS ORDERED: CEFEPIME 1 GM VIAL ONE ×2 (00:30→06:10)
[2018-11-12] MEDS: IV NS 0.9% 1,000 ML IV SCH ×2 (00:49→05:12)
[2018-11-12] MEDS: FAMOTIDINE (20 MG) 20 MG TABLET GT SCH ×2 (00:51→22:03)
[2018-11-12] MEDS ORDERED: VANCOMYCIN 1 GM VIAL ONE (01:59)
[2018-11-12 04:00] VITALS: BP 113/63
[2018-11-12] MEDS: CEFEPIME 1 GM in IV NS 0.9% 50 ML IV SCH ×3 (06:16→21:00)
[2018-11-12 06:27] LABS: BASOPHILS % (AUTO) 0.4 % (0.0-2.0); HEMATOCRIT 39 % (39-51); HEMOGLOBIN 12.8 g/dL (13.5-17.5); LYMPHOCYTES # (AUTO) 2.3 /CMM (0.8-4.8); LYMPHOCYTES % (AUTO) 21.1 % (20.0-44.0); MEAN CORPUSCULAR HGB CONC 33 g/dl (31.0-36.0); MEAN CORPUSCULAR VOLUME 90 fL (80-96); MONOCYTES # (AUTO) 1.2 /CMM (0.1-1.30); MONOCYTES % (AUTO) 11.1 % (2.0-12.0); NEUTROPHILS % (AUTO) 65.4 % (43.0-81.0); PLATELET COUNT (AUTO) 234 /CMM (150-450); RED BLOOD CELL COUNT(AUTO) 4.27 MIL/uL (4.5-6.0); WHITE BLOOD COUNT (AUTO) 10.7 K/uL (4.3-11.0)
[2018-11-12 07:20] LABS: CALCIUM, SERUM 8.4 mg/dL (8.5-10.1); CREATININE 0.5 mg/dL (0.6-1.3); MAGNESIUM 1.8 mg/dL (1.8-2.4); PHOSPHORUS 3.6 mg/dL (2.5-4.9); POTASSIUM 3.8 mmol/L (3.5-5.1)
--- NOTE | 2018-11-12 07:43 | NUR ---
RN NOTE: RECEIVED PATIENT IN BED, AWAKE, CAN SPONTANEOUSLY OPEN HIS EYES AND NONVERBAL. RESPIRATION EVEN AND UNLABORED SATURATING 98% WITH O2 3L/MIN VIA NC. AFEBRILE. SKIN WARM TO TOUCH. HOB ELEVATED. ON HULL INSPECTOR SR WITH HR 82. (L) FOREARM IV SITE NOTED PATENT AND INTACT INFUSING NS @125ML/HR. BED ON LOWEST POSITION. BED ALARMED AND LOCKED AT ALL TIMES. CALL LIGHT WITHIN REACH. NEEDS ANTICIPATED. SEIZURE PRECAUTION OBSERVED AT ALL TIMES.
[2018-11-12 08:00] VITALS: BP 115/65
[2018-11-12] MEDS ORDERED: ALBUTEROL FS 2.5 MG/0.5 ML VIAL.NEB NEB PRN (08:00)
[2018-11-12] MEDS ORDERED: IPRATROPIUM NEB FS 0.5 MG/2.5 ML AMPUL.NEB NEB PRN (08:00)
[2018-11-12] MEDS ORDERED: FEE PK DOSING 1 MIN EA MC ONE (08:38)
[2018-11-12] MEDS: LamoTRIgine 25 MG TABLET GT SCH ×2 (08:49→17:00)
[2018-11-12] MEDS: LEVETIRACETAM SOL (5 ML) 100 MG/ML UDC GT SCH ×2 (08:49→21:00)
[2018-11-12] MEDS: DOCUSATE SODIUM LIQ 100 MG/10 ML UDC GT SCH ×2 (08:49→17:00)
[2018-11-12] MEDS: PHENOBARBITAL 30 MG TABLET PO SCH ×3 (08:54→17:00)
[2018-11-12] MEDS: VITAMIN B COMP W-C 1 TAB TABLET GT SCH (08:54)
[2018-11-12] MEDS ORDERED: PHENOBARBITAL 60 MG TABLET PO SCH (09:00)
--- NOTE | 2018-11-12 09:45 | NUR ---
RN NOTE: CALLED AND LEFT A VOICE MESSAGE TO THE DIETITIAN FOR THE PATIENT'S CLARIFICATION OF THE GT FEEDING. AWAITING FOR A CALL BACK.
[2018-11-12] MEDS: TWOCAL HN 1,000 ML LIQUID GT SCH ×3 (09:48→17:51)
[2018-11-12] MEDS: VANCOMYCIN 1 GM in IV D5W 250 ML IV SCH ×2 (10:38→17:01)
--- NOTE | 2018-11-12 11:20 | NUR ---
RN NOTE: CALLED AND LEFT A VOICE MESSAGE TO THE DIETITIAN FOR THE PATIENT'S CLARIFICATION OF THE GT FEEDING FOR THE 2ND TIME AND AWAITING FOR A CALL BACK.
[2018-11-12 12:00] VITALS: BP 124/66
[2018-11-12] MEDS: Z GUARD REMEDY 2 OZ OINT TP PRN (12:20)
[2018-11-12 16:00] VITALS: BP 131/74
[2018-11-12] MEDS: IV NS 0.9% 1,000 ML IV PRN (16:53)
--- NOTE | 2018-11-12 19:03 | NUR ---
RN NOTE: BEDSIDE REPORT WAS GIVEN TO PM SHIFT NURSE FOR CONTINUITY OF CARE. PATIENT ON STABLE CONDITION. AFEBRILE THE WITHIN DAYSHIFT. SEIZURE PRECAUTION OBSERVED WITH PADDED SIDE RAILS. STILL PENDING DIETARY CONSULTATION.
[2018-11-12 20:00] VITALS: BP 93/59
[2018-11-13] VITALS (7 sets, daily range): BP systolic 97–109; BP diastolic 59–69
[2018-11-13] MEDS: VANCOMYCIN 1 GM in IV D5W 250 ML IV SCH ×3 (01:28→17:54)
[2018-11-13] MEDS: IV NS 0.9% 1,000 ML IV PRN ×2 (01:28→15:57)
[2018-11-13] MEDS: CEFEPIME 1 GM in IV NS 0.9% 50 ML IV SCH ×3 (04:42→21:11)
[2018-11-13 06:18] LABS: BASOPHILS # (AUTO) 0.1 /CMM (0.0-0.2); BASOPHILS % (AUTO) 1.1 % (0.0-2.0); EOSINOPHILS % (AUTO) 2.7 % (0.0-6.0); HEMATOCRIT 41 % (39-51); HEMOGLOBIN 13.6 g/dL (13.5-17.5); LYMPHOCYTES % (AUTO) 8.7 % (20.0-44.0); MEAN CORPUSCULAR HGB CONC 33 g/dl (31.0-36.0); MEAN CORPUSCULAR VOLUME 90 fL (80-96); MONOCYTES % (AUTO) 8.5 % (2.0-12.0); NEUTROPHILS # (AUTO) 9.5 /CMM (1.8-8.9); PLATELET COUNT (AUTO) 273 /CMM (150-450); RED BLOOD CELL COUNT(AUTO) 4.55 MIL/uL (4.5-6.0); WHITE BLOOD COUNT (AUTO) 12.1 K/uL (4.3-11.0)
[2018-11-13 06:32] LABS: CREATININE 0.4 mg/dL (0.6-1.3); MAGNESIUM 1.7 mg/dL (1.8-2.4); PHOSPHORUS 3.7 mg/dL (2.5-4.9); POTASSIUM 3.7 mmol/L (3.5-5.1)
--- NOTE | 2018-11-13 07:15 | NUR ---
RN REMINGTON NOTES RECEIVED BEDSIDE REPORT. PATIENT A/O X0 OPENS EYES SPONTANEOUSLY WITHOUT TRACKING. ON 3 LTRS NASAL CANNULA NO SIGNS OR SYMPTOMS OF RESPIRATORY DISTRESS OR ACUTE PAIN NOTED. SINUS ON MONITOR. GTF PATENT /CLAMPED BOLUS FEEDING TID. IVF TO LFA # 20 GAUGE NS @ 125 ML/HR.SAFETY ABD ASPIRATION PRECAUTIONS IN PLACE BED IN LOW LOCKED POSITION . UNABLE TO USE CALL LIGHT WILL MONITOR ACCORDINGLY
[2018-11-13 07:29] LABS: EOSINOPHILS % (MANUAL) 1 % (0-4); LYMPHOCYTES % (MANUAL) 17 % (16-48); MONOCYTES % (MANUAL) 11 % (0-11.0); NEUTROPHILS % (MANUAL) 71 (42-76)
[2018-11-13] MEDS: PHENOBARBITAL 30 MG TABLET PO SCH ×3 (08:38→16:50)
[2018-11-13] MEDS: DOCUSATE SODIUM LIQ 100 MG/10 ML UDC GT SCH ×2 (08:38→16:50)
[2018-11-13] MEDS: LEVETIRACETAM SOL (5 ML) 100 MG/ML UDC GT SCH ×2 (08:38→21:12)
[2018-11-13] MEDS: LamoTRIgine 25 MG TABLET GT SCH ×2 (08:38→16:50)
[2018-11-13] MEDS: VITAMIN B COMP W-C 1 TAB TABLET GT SCH (08:38)
[2018-11-13] MEDS: TWOCAL HN 1,000 ML LIQUID GT SCH ×3 (08:39→16:50)
--- NOTE | 2018-11-13 11:10 | NUR ---
CONDOM CATH PLACED ON PATIENT D/T LARGE VOLUME OF URINARY OUT
[2018-11-13] MEDS: Magnesium 1GM/D5W 100ML PREMIX 100 ML IV SCH ×2 (11:48→13:38)
[2018-11-13] MEDS: LACTOBACILLUS RHAMNOSUS GG 1 EACH CAP.SPRINK PO SCH (16:50)
--- NOTE | 2018-11-13 18:20 | NUR ---
RN REMINGTON NOTES NO SIGNIFICANT CHANGES THROUGHOUT SHIFT. NO SIGNS OR SYMPTOMS OF RESPIRATORY DISTRESS SATURATING WELL ON 3 LTRS NASAL CANNULA OR ACUTE PAIN NOTED. IVF NS RUNNING @ 125 ML/HR LFA # 20 GAUGE. TOLERATED GT BOLUS X3 NO N/V. CONDOM CATH DRAINING CLEAR YELLOW URINE. KEPT CLEAN AND DRY ORAL CARE DONE SAFETY AND ASPIRATION PRECAUTIONS IN PLACE BED IN LOW LOCKED POSITION WILL ENDORSE TO NOC
[2018-11-13] MEDS: FAMOTIDINE (20 MG) 20 MG TABLET GT SCH (21:10)
[2018-11-14] VITALS: BP 100/64
[2018-11-14] MEDS: VANCOMYCIN 1 GM in IV D5W 250 ML IV SCH ×2 (01:43→09:06)
[2018-11-14] MEDS: IV NS 0.9% 1,000 ML IV PRN ×3 (01:52→22:38)
[2018-11-14 04:00] VITALS: BP 99/61
[2018-11-14] MEDS: CEFEPIME 1 GM in IV NS 0.9% 50 ML IV SCH ×3 (04:58→20:31)
--- NOTE | 2018-11-14 06:39 | NUR ---
RN NOTES IN BED, WITH NO APPARENT DISTRESS. BREATHING EVEN AND UNLABORED. ON O2 AT 3 LPM VIA NASAL CANNULA WELL TOLERATED. NO SIGNIFICANT CHANGE OF CONDITION. NO PHYSICAL MANIFESTATION OF PAIN OR DISCOMFORT. KEPT CLEAN AND DRY. WILL ENDORSE TO NEXT SHIFT FOR CONTINUITY OF CARE.
[2018-11-14 06:46] LABS: CALCIUM, SERUM 8.6 mg/dL (8.5-10.1); CREATININE 0.5 mg/dL (0.6-1.3); MAGNESIUM 2.1 mg/dL (1.8-2.4); POTASSIUM 4.3 mmol/L (3.5-5.1)
--- NOTE | 2018-11-14 07:45 | NUR ---
RN NOTE: RECEIVED PATIENT IN BED AWAKE, CAN SPONTANEOUSLY OPEN HIS EYES AND NONVERBAL. RESPIRATION EVEN AND UNLABORED SATURATING 100% WITH NC 3L/MIN. ON COMPUTER HELP DESK SPECIALIST SR HR= 81. HOB ELEVATED. BED ALARMED AND LOCKED AT ALL TIMES. BED ON LOWEST POSITION. GT WAS CLAMPED AND NO GASTRIC RESIDUAL NOTED. (L) FOREARM IV SITE INTACT AND PATENT INFUSING NS@125ML/HR. CONDOM CATHETER IN PLACED WITH GOOD URINE OUTPUT YELLOW URINE DRAINING TO GRAVITY. CALL LIGHT WITHIN REACH. NEEDS ANTICIPATED. SEIZURE PRECAUTION OBSERVED AT ALL TIMES.
[2018-11-14 08:00] VITALS: BP 109/58
[2018-11-14] MEDS: LEVETIRACETAM SOL (5 ML) 100 MG/ML UDC GT SCH ×2 (08:57→20:31)
[2018-11-14] MEDS: DOCUSATE SODIUM LIQ 100 MG/10 ML UDC GT SCH ×2 (08:58→16:39)
[2018-11-14] MEDS: LamoTRIgine 25 MG TABLET GT SCH ×2 (08:58→16:39)
[2018-11-14] MEDS: VITAMIN B COMP W-C 1 TAB TABLET GT SCH (08:58)
[2018-11-14] MEDS: PHENOBARBITAL 30 MG TABLET PO SCH ×3 (08:58→16:39)
[2018-11-14] MEDS: LACTOBACILLUS RHAMNOSUS GG 1 EACH CAP.SPRINK PO SCH ×2 (08:58→16:39)
[2018-11-14] MEDS: JEVITY 1.2 CAL 1,000 ML BOTTLE GT PRN (10:45)
[2018-11-14 12:00] VITALS: BP 101/61
[2018-11-14 16:00] VITALS: BP 111/68
[2018-11-14] MEDS: Z GUARD REMEDY 2 OZ OINT TP PRN (16:37)
[2018-11-14] MEDS: VANCOMYCIN 1.25 GM in IV D5W 500 ML IV SCH (18:56)
--- NOTE | 2018-11-14 19:45 | NUR ---
RN NOTE: BEDSIDE REPORT WAS GIVEN TO PM SHIFT NURSE FOR CONTINUITY OF CARE. PATIENT ON GT FEEDING OF JEVITY 1.2 @60ML/HR AND NO GASTRIC RESIDUAL NOTED. SEIZURE PRECAUTION OBSERVED AT ALL TIMES. PADDED SIDE RAILS IN PLACED.
[2018-11-14 20:00] VITALS: BP 117/70
[2018-11-14] MEDS: FAMOTIDINE (20 MG) 20 MG TABLET GT SCH (22:29)
[2018-11-15] VITALS: BP 100/63
[2018-11-15] MEDS: VANCOMYCIN 1.25 GM in IV D5W 500 ML IV SCH ×3 (01:47→17:40)
[2018-11-15 04:00] VITALS: BP 100/61
[2018-11-15] MEDS: CEFEPIME 1 GM in IV NS 0.9% 50 ML IV SCH ×3 (04:49→21:00)
[2018-11-15 06:23] LABS: BASOPHILS % (AUTO) 0.3 % (0.0-2.0); EOSINOPHILS % (AUTO) 2.7 % (0.0-6.0); HEMATOCRIT 40 % (39-51); HEMOGLOBIN 13.4 g/dL (13.5-17.5); LYMPHOCYTES # (AUTO) 2.3 /CMM (0.8-4.8); MEAN CORPUSCULAR HGB CONC 33 g/dl (31.0-36.0); MEAN CORPUSCULAR VOLUME 90 fL (80-96); MONOCYTES # (AUTO) 1.1 /CMM (0.1-1.30); MONOCYTES % (AUTO) 9.3 % (2.0-12.0); NEUTROPHILS # (AUTO) 8.5 /CMM (1.8-8.9); NEUTROPHILS % (AUTO) 68.7 % (43.0-81.0); PLATELET COUNT (AUTO) 271 /CMM (150-450); RED BLOOD CELL COUNT(AUTO) 4.49 MIL/uL (4.5-6.0); WHITE BLOOD COUNT (AUTO) 12.3 K/uL (4.3-11.0)
[2018-11-15 06:41] LABS: CALCIUM, SERUM 9.2 mg/dL (8.5-10.1); CREATININE 0.5 mg/dL (0.6-1.3); PHOSPHORUS 4.1 mg/dL (2.5-4.9); POTASSIUM 3.8 mmol/L (3.5-5.1)
--- NOTE | 2018-11-15 07:25 | NUR ---
RN NOTE: RECEIVED PATIENT IN BED AWAKE, ABLE TO SPONTANEOUSLY OPEN HIS EYES AND NONVERBAL. RESPIRATION EVEN AND UNLABORED SATURATING 98-100% WITH NC 3L/MIN. ON SHELL FISHERMAN SR HR= 85. HOB ELEVATED. BED ALARMED AND LOCKED AT ALL TIMES. BED ON LOWEST POSITION. SEIZURE AND ASPIRATION PRECAUTION OBSERVED AT ALL TIMES. GT FEEDING OF JEVITY 1.2 @60ML/HR WAS INFUSING AND NO GASTRIC RESIDUAL NOTED. (L) FOREARM AND (R) HAND IV SITE INTACT AND PATENT INFUSING NS@125ML/HR. CONDOM CATHETER IN PLACED WITH GOOD URINE OUTPUT YELLOW URINE DRAINING TO GRAVITY. CALL LIGHT WITHIN REACH. NEEDS ANTICIPATED.
[2018-11-15 08:00] VITALS: BP 111/66
[2018-11-15] MEDS: DOCUSATE SODIUM LIQ 100 MG/10 ML UDC GT SCH ×2 (08:39→16:34)
[2018-11-15] MEDS: LACTOBACILLUS RHAMNOSUS GG 1 EACH CAP.SPRINK PO SCH ×2 (08:39→16:34)
[2018-11-15] MEDS: LamoTRIgine 25 MG TABLET GT SCH ×2 (08:39→16:34)
[2018-11-15] MEDS: LEVETIRACETAM SOL (5 ML) 100 MG/ML UDC GT SCH ×2 (08:39→21:00)
[2018-11-15] MEDS: PHENOBARBITAL 30 MG TABLET PO SCH ×3 (08:39→16:36)
[2018-11-15] MEDS: VITAMIN B COMP W-C 1 TAB TABLET GT SCH (08:39)
--- NOTE | 2018-11-15 11:30 | NUR ---
RN NOTE: SEEN AND EXAMINED BY DR. GALINDO AND PER MD, PATIENT WILL BE DISCHARGE WITHIN TODAY. ARCHEOLOGY PROFESSOR WILL BE INFORM ABOUT IT.
[2018-11-15] MEDS: JEVITY 1.2 CAL 1,000 ML BOTTLE GT PRN (11:52)
[2018-11-15 12:00] VITALS: BP 102/60
--- NOTE | 2018-11-15 14:30 | NUR ---
RN NOTE: CALLED TO [facility] TO GIVE REPORT FOR THE PATIENT AND WAS UNSUCCESSFUL. NURSE WAS PLACED ON A LONG HOLD. DROPPED THE CALL AND WILL TRY AGAIN LATER. FACING MACHINE OPERATOR MADE AWARE.
[2018-11-15 16:00] VITALS: BP 106/69
--- NOTE | 2018-11-15 18:20 | NUR ---
RN NOTE: CALL[facility] TO [facility] FOR THE [facility]OND [facility] TO GIVE REPORT REGARDING THE PATIENT'S DISCHARGE AND WAS UNSUCCESSFUL AGAIN. NURSE WAS PLACED ON A LONG HOLD. DROPPED THE CALL AND WILL TRY AGAIN LATER. PATTERNMAKER APPRENTICE WOOD MADE AWARE AGAIN.
--- NOTE | 2018-11-15 19:00 | NUR ---
RN NOTE: CALLED TO [facility] FOR THE THIRD TIME TO GIVE REPORT REGARDING THE PATIENT'S DISCHARGE AND WAS UNSUCCESSFUL AGAIN. NURSE WAS PLACED ON A LONG HOLD. DROPPED THE CALL AND WILL TRY AGAIN LATER. POWER TECHNICIAN MADE AWARE AGAIN. PER POWER TECHNICIAN, SHE WILL INFORM RAYMON AT [facility] ABOUT THIS. BEDSIDE REPORT WAS GIVEN TO REMINGTON AVILA RN FOR CONTINUITY OF CARE. AND REGARDING THE UNSUCCESSFUL ATTEMPTS TO GIVE REPORT FOR THE DISCHARGE. EXIT CARE WAS DONE AND PENDING REPORT TO THE RECEIVING FACILITY.
--- NOTE | 2018-11-15 20:00 | NUR ---
LENS GRINDER AND POLISHER NOTES RECEIVED BEDSIDE REPORT FROM AM SHIFT THAT PATIENT WILL BE DISCHARGED BY 1999. PT WILL BE TAKEN BACK TO [facility]. GAVE REPORT TO NATALI FROM THE FACILITY. PATIENT A/O X0 OPENS EYES SPONTANEOUSLY WITHOUT TRACKING. ON 3 LTRS NASAL CANNULA NO SIGNS OF ANY ACUTE DISTRESS UPON D/C. REPORT GIVEN TO EMT'S TO TAKE PT BACK TO FACILITY TO CONTIUE CARE.
--- NOTE | 2018-11-15 22:17 | NUR ---
FACILITY CALLED AND STATED PT IS TACHYCARIC AND HAS A TEMP OF 100.6, THEY SENT HIM BACK TO OUR UNIT AND CURRENTLY HE HAS A TEMP OF 99.2 HR 112 AND IS BP OF 126/86 100 PERCENT 02. CALLED DOCTOR AKANKSHA AND SHE STATED TO CONTINUE ALL MEDICATIONS THAT WERE ON FILE AND ADMIT TO TELE. WILL CONTINUE TO MONITER PATIENT AND CARRY OUT PLAN OF CARE.
[2018-11-15] MEDS: ACETAMINOPHEN 325 MG TABLET PO PRN (22:28)
[2018-11-15] MEDS: FAMOTIDINE (20 MG) 20 MG TABLET GT SCH (22:28)
--- NOTE | 2018-11-16 00:15 | NUR ---
ADMINISTERED TYLENOL PER G TUBE PT TEMP DOWN TO 98.0 AND HR DOWN TO 78. MADE COMFORTABLE, USED COOLING MEASURES AND CONTINUING PLAN OF CARE/MEDICATIONS/ANTIBIOTICS ON FILE BEFORE D/C. PT ON MONITER SINUS RYTHM, SAFETY MEASURES IN PLACE, CONDOM CATH DRAINING WELL AND WILL CONTINUE TO MONITOR.
[2018-11-16] MEDS: VANCOMYCIN 1.25 GM in IV D5W 500 ML IV SCH ×3 (01:57→17:18)
[2018-11-16 02:00] VITALS: BP 144/75
[2018-11-16] MEDS: CEFEPIME 1 GM in IV NS 0.9% 50 ML IV SCH ×2 (04:40→12:32)
[2018-11-16 06:00] VITALS: BP 104/54
--- NOTE | 2018-11-16 06:32 | NUR ---
MANAGER DIGITAL CLOSING NOTES: PT AO TIMES 1- TO NAME. OBTUNDED AND NONVERBAL. RESPONDS TO PAIN STIMULI/OPENS EYES. JEVITY RUNNING AT 60 ML/HR, TOLERATING WELL WITH NO RESIDUAL. BED IN LOCKED LOW POSITION. CONDOM CATH DRAINING WELL LEFT HAND IV FLUSHING WELL AND IN TACT. WILL ENDORSE TO AM SHIFT TO CARRY OUT PLAN OF CARE.
[2018-11-16 07:30] LABS: CALCIUM, SERUM 9.3 mg/dL (8.5-10.1); CREATININE 0.3 mg/dL (0.6-1.3); POTASSIUM 4.3 mmol/L (3.5-5.1)
[2018-11-16 08:00] VITALS: BP 97/65
[2018-11-16] MEDS: LEVETIRACETAM SOL (5 ML) 100 MG/ML UDC GT SCH (09:23)
[2018-11-16] MEDS: VITAMIN B COMP W-C 1 TAB TABLET GT SCH (09:23)
[2018-11-16] MEDS: DOCUSATE SODIUM LIQ 100 MG/10 ML UDC GT SCH ×2 (09:23→16:02)
[2018-11-16] MEDS: LACTOBACILLUS RHAMNOSUS GG 1 EACH CAP.SPRINK PO SCH ×2 (09:24→16:02)
[2018-11-16] MEDS: PHENOBARBITAL 30 MG TABLET PO SCH ×3 (09:24→16:03)
[2018-11-16] MEDS: LamoTRIgine 25 MG TABLET GT SCH ×2 (09:25→16:03)
[2018-11-16] MEDS: JEVITY 1.2 CAL 1,000 ML BOTTLE GT PRN (12:32)
--- NOTE | 2018-11-16 14:42 | NUR ---
RN NOTE SPOKE WITH DR GALINDO OVER THE PHONE ABOUT PT. SHE SAID TO DISCHARGE PT BACK TO [facility].
--- NOTE | 2018-11-16 14:45 | NUR ---
PER DR GALINDO TO DISCHARGE PT BACK TO SNF SINCE PT IS STABLE. WILL FOLLOW THROUGH.
[2018-11-16 15:00] VITALS: BP 108/58
[2018-11-16 16:00] VITALS: BP 99/56
[2018-11-16] MEDS: ACETAMINOPHEN 325 MG TABLET PO PRN (17:18)
--- NOTE | 2018-11-16 19:20 | NUR ---
BI SPECIALIST NOTE: PT IN STABLE CONDITION. UPON D/C TEMP 97.7 BP 105/90 HR 78. GAVE REPORT TO THE EMT'S AND REMOVED ID BAND IV SITE AND GSTUBE SITE FLUSHED AND CLAMPED. IV REMOVED, DISCHARGE PAPERS INCLUDED, EXIT CARE DONE, PICTURES TAKEN AND LEFT IN CHART.
--- NOTE | 2018-11-16 19:23 | NUR ---
RN NOTE REPORT GIVEN TO ANIKA GRAFF AT [facility]. PT DISCHARGED IN STABLE CONDITION, VS STABLE, G TUBE CLAMPED, IV REMOVED, DISCHARGE PAPERS INCLUDED, EXIT CARE DONE, PICTURES TAKEN AND LEFT IN CHART.
== END 2018-11-16 19:23 | DRG 720 ==
LOC: ER 17:49 → TELE1 20:17 → TELE-TD 21:49 → MEDSG1 11-15 11:00 → TELE1 11-15 22:32 → MEDSG1 11-16 10:44
PROVIDERS: ADMIT Family Medicine; ATTEND Internal Medicine
DX: A41.9 Sepsis, unspecified organism (principal); G82.50 Quadriplegia, unspecified; G93.41 Metabolic encephalopathy; J96.10 Chronic respiratory failure, unspecified whether with hypoxia or hypercapnia; E87.2 Acidosis; J15.9 Unspecified bacterial pneumonia; R13.10 Dysphagia, unspecified; Z93.1 Gastrostomy status; N39.0 Urinary tract infection, site not specified; D72.829 Elevated white blood cell count, unspecified; R73.9 Hyperglycemia, unspecified; Z98.2 Presence of cerebrospinal fluid drainage device; G40.909 Epilepsy, unspecified, not intractable, without status epilepticus
CPT/HCPCS: 36415; 71045-TC; 80048-TC; 80061-TC; 80076-TC; 80202-TC; 81000-TC; 83605-TC; 83735-TC; 84100-TC; 84484-TC; 85025-TC; 85730-TC; 87040-TC; 87070-TC; 87081-TC; 87086-TC; 87186-TC; A4216; A4349; G0378; J0692; J0696; J1953; J1956; J2543; J3370; J3475; J7030; J7050; J7060

== ENCOUNTER 2021-10-12 07:08 | Inpatient (IN) | payer MEDICAID ==
[~2021-10-12] VITALS: Ht 165.1 cm; Wt 67.1 kg
[~2021-10-12 07:08] MED LIST changes: -ACET325C5 GT; +ACET325C7 GT; -AMOX-427 PO; +FAMO20TA8 GT; +HYDR-4384 GT; +NUT.237L25 GT; -RANI150T8 GT
--- NOTE | 2021-10-12 07:27 | NUR ---
CALLED PHARMACY FOR NIRAJ
[2021-10-12] MEDS ORDERED: LEVETIRACETAM (500MG) 500 MG in IV NS 0.9% 100 ML IV ONE (07:30)
--- NOTE | 2021-10-12 07:36 | NUR ---
IV LINE ESTABLISHED; BLOOD DRAWN AND SENT TO LAB.
--- NOTE | 2021-10-12 07:37 | NUR ---
ACCUCHECK 128MG/DL
--- NOTE | 2021-10-12 07:38 | NUR ---
COVID SWAB COLLECTED AND SENT TO LAB
[2021-10-12 07:42] LABS: BASOPHILS % (AUTO) 0.1 % (0.0-2.0); EOSINOPHILS % (AUTO) 0.1 % (0.0-6.0); HEMATOCRIT 50 % (39-51); HEMOGLOBIN 16.5 g/dL (13.5-17.5); LYMPHOCYTES # (AUTO) 0.5 K/uL (0.8-4.8); LYMPHOCYTES % (AUTO) 4.1 % (20.0-44.0); MEAN CORPUSCULAR HGB CONC 33 g/dl (31.0-36.0); MEAN CORPUSCULAR VOLUME 84 fL (80-96); MONOCYTES # (AUTO) 1.1 K/uL (0.1-1.30); MONOCYTES % (AUTO) 8.5 % (2.0-12.0); NEUTROPHILS # (AUTO) 10.9 K/uL (1.8-8.9); NEUTROPHILS % (AUTO) 87.2 % (43.0-81.0); PLATELET COUNT (AUTO) 225 K/uL (150-450); RED BLOOD CELL COUNT(AUTO) 5.91 MIL/uL (4.5-6.0); WHITE BLOOD COUNT (AUTO) 12.5 K/uL (4.3-11.0)
--- NOTE | 2021-10-12 07:45 | NUR ---
URINE SAMPLE COLLECTED AND SENT TO LAB.
[2021-10-12 08:16] LABS: BILIRUBIN,DIRECT 0.1 mg/dL (0.0-0.2); BILIRUBIN,TOTAL 0.4 mg/dL (0.2-1.0); CREATININE 0.8 mg/dL (0.6-1.3); POTASSIUM 4.1 mmol/L (3.5-5.1); TOTAL PROTEIN, SERUM 8.4 g/dL (6.4-8.2)
[2021-10-12] MEDS ORDERED: IBUPROFEN SUSP 100 MG/5 ML UDC GT ONE (09:00)
--- NOTE | 2021-10-12 09:06 | NUR ---
[facility] CALLED ETA 45 MINS PER GORGE.
[2021-10-12] MEDS ORDERED: IBUPROFEN SUSP 100 MG/5 ML UDC ONE (09:07)
--- NOTE | 2021-10-12 09:30 | NUR ---
GT IN PLACE AND PATENT; NO RESIDUAL NOTED. MOTRIN GIVEN THROUGH GT INDICATED.
--- NOTE | 2021-10-12 09:47 | NUR ---
PT REPORT AND DISCHARGE EDUCATION/INSTRUCTION GIVEN TO DAJUAN SALAZAR WORKERS COMPENSATION ATTORNEY AT [facility]. Addendum: 10/12/21 at 0953 by MARIANELA CANCEL DISCHARGE.
[2021-10-12] MEDS ORDERED: CRAN3875 GT (10:07)
[2021-10-12] MEDS ORDERED: NUTR250L62 GT (10:07)
[2021-10-12] MEDS ORDERED: IV NS 0.9% 1,000 ML BAG IV ONE ×2 (10:30→11:00)
--- NOTE | 2021-10-12 12:19 | NUR ---
COSME CONSERVATOR [phone]
--- NOTE | 2021-10-12 12:42 | NUR ---
REQUESTED TELE BED. AWAITING RESPONSE.
[2021-10-12] MEDS ORDERED: MORPHINE SULFATE INJ 2 MG/ML DISP.SYRIN IV PRN (14:00)
[2021-10-12] MEDS ORDERED: BACLOFEN (10 MG) 10 MG TABLET GT PRN (14:00)
[2021-10-12] MEDS ORDERED: HYDROCODONE/APAP 5/325MG TABLET GT PRN (14:00)
[2021-10-12] MEDS ORDERED: BISACODYL SUPP (10 MG) 10 MG/SUPP.RECT SUPP.RECT RC PRN (14:00)
[2021-10-12] MEDS ORDERED: JEVITY 1.2 CAL 1,000 ML BOTTLE GT PRN (14:00)
[2021-10-12] MEDS ORDERED: ACETAMINOPHEN 325 MG TABLET PO PRN (14:00)
[2021-10-12] MEDS ORDERED: ONDANSETRON HCL/PF 4 MG/2 ML VIAL IVP PRN (14:00)
[2021-10-12] MEDS ORDERED: ALBUTEROL SULFATE 8 GM HFA.AER.AD IH PRN (14:00)
[2021-10-12] MEDS ORDERED: LORAZEPAM INJ 2 MG/ML VIAL IM PRN (14:00)
--- NOTE | 2021-10-12 15:34 | NUR ---
GOT BED 108
--- NOTE | 2021-10-12 15:48 | NUR ---
REPORT GIVEN TO NYDIA GRAFF OF [facility] UNIT Addendum: 10/12/21 at 1549 by MEGAN REPORT GIVEN TO NYDIA GRAFF OF TELE UNIT
--- NOTE | 2021-10-12 16:00 | NUR ---
ADMITTING NOTES: ADMITTED A 26YO MALE PT ACCOMPANIED BY ER STAFFS VIA GURNEY. PATIENT IS AWAKE AND NON VERBAL. NO CARDIAC DISTRESS NOTED. ON O2 AT 2 LPM VIA NASAL CANNULA. VS TAKEN WNL. AFEBRILE. NOTED WITH G-TUBE, PATENT AND INTACT, CHECKED PATENCY AND NO RESIDEUAL AND IN PLACE. CHANGED THE G-TUBE DRESSING, SKIN IS INTACT. ABDOMEN SOFT AND NON TENDER. UNABLE TO GATHERED DATA FROM THE PATIENT. NO BELONGINGS CARRIED WITH THE RESIDENT. SAFETY MEASURES INITIATED: BED IN LOCKED AND LOWEST POSITION, SIDE RAILS UP X 2. CALL LIGHT AND BED CONTROLIN EASY REACH FOR HELP. IDENTIFICATION BAND IN PLACE. ORIENTED TO STAFFS AND THE UNIT. KEPT RESTED AND COMFORTABLE.
--- NOTE | 2021-10-12 16:05 | NUR ---
PATIENT ADMITTED AT R108 REPORT GIVEN TO NYDIA GRAFF FOR JUDE
[2021-10-12] MEDS ORDERED: DOCUSATE SODIUM LIQ 100 MG/10 ML UDC PO SCH (17:00)
[2021-10-12] MEDS: LamoTRIgine 25 MG TABLET GT SCH (17:46)
[2021-10-12] MEDS: DOCUSATE SODIUM LIQ 100 MG/10 ML UDC GT SCH (17:46)
--- NOTE | 2021-10-12 18:52 | NUR ---
CAFETERIA TABLE ATTENDANT CLOSING NOTES: PATIENT IN BED, ASLEEP EASILY AWAKE WITH STIMULI. ALERT, NON VERBAL. NO RESPIRATORY DISTRESS NOTED. ON LANDSCAPING SPECIALIST. IV ACCESS ON LEFT WRIST G20 PATENT INTACT AND SALINE LOCKED. WITH G-TUBE PATENT AND INTACT. SAFETY PRECAUTIONS MAINTAINED: BED LOCKED AND IN LOWEST POSITION, CALL LIGHT IN EASY REACH FOR HELP. ENDORSED TO NOC SHIFT FOR JUDE.
--- NOTE | 2021-10-12 19:10 | NUR ---
RN OPENING NOTES RECEIVED PATIENT ON BED, A/O x 1, NON VERBAL. ON NASAL CANULA @ 3LPM SATING AT 96%. RESPIRATORY EVEN AND UNLABORED, NO SOB NOTED. NO S/S OF DISTRESS NOTED. PATIENT WITH LEFT WRIST # 20 PERIPHERAL LINE, FLUSHED WITH NS, NO S/S OF INFILTRATION NOTED AT SITE. WITH LEFT SPINAL SURGEON SHUNT. ALL SAFETY MEASURE PROVIDED. BED IN LOWEST POSITION, LOCKED. BED ALARM ARMED. CONTINUE TO MONITOR.
[2021-10-12 20:00] VITALS: BP 102/69
--- NOTE | 2021-10-12 20:00 | NUR ---
RN NOTES UPON DOING ROUNDS, PATIENT NOTED WITH DISLODGED GTUBE, NO BLEEDING NOTED, INSERTED BASSETT CATHETER FR. 16 TO KEEP STOMA OPEN. APPLIED DRY DRESSING.
--- NOTE | 2021-10-12 20:40 | NUR ---
RN NOTES PATIENT NOTED WITH TEMPERATURE 99.7 F DEGREES, COOLING MEASURE PROVIDED. CONTINUE TO MONITOR.
[2021-10-12] MEDS ORDERED: LEVETIRACETAM SOL (5 ML) 100 MG/ML UDC GT SCH (21:00)
--- NOTE | 2021-10-12 21:45 | NUR ---
2144 Reported by primary nurse Easton that he found patient's PEG tube out. No bleeding at site noted, covered with clean gauze. DIRECTOR OF CLINICAL TRIALS Liz notified. Keppra changed to IV with same dose. Order noted.
[2021-10-12] MEDS: HEPARIN SODIUM, PORCINE 5000 UNITS/1 ML VIAL SQ SCH (21:51)
[2021-10-12] MEDS ORDERED: LEVETIRACETAM (500MG) 500 MG/5 ML VIAL IV ONE (22:04)
[2021-10-12] MEDS: LEVETIRACETAM (500MG) 1,000 MG in IV NS 0.9% 100 ML IV SCH (22:11)
[2021-10-13] VITALS: BP 95/58
--- NOTE | 2021-10-13 | NUR ---
RN NOTES PATIENT NOTED WITH TEMPERATURE 99.8 F DEGREES, CONTINUE COOLING MEASURES. CONTINUE TO MONITOR.
[2021-10-13] MEDS: IPRATROPIUM/ALBUTEROL INHALER IH SCH ×5 (02:11→21:00)
[2021-10-13 04:00] VITALS: BP 96/60
--- NOTE | 2021-10-13 04:00 | NUR ---
RN NOTES PATIENT NOTED WITH TEMPERATURE 99.6 F DEGREES, COOLING MEASURE PROVIDED.
[2021-10-13 05:07] LABS: ABG BASE EXCESS -0.2 mmol/L; ABG PCO2 42.7 mmHg (35.0-45.0); ABG PH 7.385 (7.350-7.450); ABG PO2 96.6 mmHg (75.0-100.0); COHb 0.4 % (0.5-1.5); MetHb 0.6 % (0.0-1.5); O2Hb 96.9 % (94.0-97.0); SITE, ABG Right Radial
--- NOTE | 2021-10-13 05:17 | NUR ---
RT NOTE ABG DONE PER DO ORDER. DRAWN ON 3L NC. PT SPO2 96%. RESULTS ARE WITHIN NORMAL RANGE. THIRD MATE NOTIFIED.
[2021-10-13] MEDS: IV NS 0.9% 1,000 ML IV PRN ×2 (05:23→15:17)
[2021-10-13 06:44] LABS: BASOPHILS % (AUTO) 0.1 % (0.0-2.0); EOSINOPHILS % (AUTO) 0.1 % (0.0-6.0); HEMATOCRIT 45 % (39-51); HEMOGLOBIN 15.1 g/dL (13.5-17.5); LYMPHOCYTES % (AUTO) 10.3 % (20.0-44.0); MEAN CORPUSCULAR HGB CONC 34 g/dl (31.0-36.0); MEAN CORPUSCULAR VOLUME 85 fL (80-96); MONOCYTES % (AUTO) 9.9 % (2.0-12.0); NEUTROPHILS # (AUTO) 7.8 K/uL (1.8-8.9); NEUTROPHILS % (AUTO) 79.6 % (43.0-81.0); PLATELET COUNT (AUTO) 187 K/uL (150-450); RED BLOOD CELL COUNT(AUTO) 5.28 MIL/uL (4.5-6.0); WHITE BLOOD COUNT (AUTO) 9.8 K/uL (4.3-11.0)
[2021-10-13 07:10] LABS: ALBUMIN 3.2 g/dL (3.4-5.0); BILIRUBIN,TOTAL 0.3 mg/dL (0.2-1.0); CALCIUM, SERUM 8.1 mg/dL (8.5-10.1); CREATININE 0.5 mg/dL (0.6-1.3); MAGNESIUM 2.2 mg/dL (1.8-2.4); TOTAL PROTEIN, SERUM 7.2 g/dL (6.4-8.2)
--- NOTE | 2021-10-13 07:32 | NUR ---
RN NOTES PATIENT REMAIN STABLE THROUGH OUT THE SHIFT, NO EPISODE OF SEIZURE NOTED. RESPIRATORY EVEN AND UNLABORED, NO SOB NOTED. NO S/S OF DISTRESS NOTED. WITH IVF OF NS @ 90 ML/HR. WITH LEFT DRUM BUILDER SHUNT. ALL DUE MEDS GIVEN ORDERED. ALL SAFETY MEASURE PROVIDED. BED IN LOWEST POSITION, LOCKED. BED ALARM ARMED. REPORT GIVEN TO MORNING SHIFT NURSE FOR CONTINUITY OF CARE
--- NOTE | 2021-10-13 07:50 | NUR ---
RN OPENING NOTES RECEIVED PATIENT ON BED, A/O x 1, NON VERBAL. ON NASAL CANULA @ 3LPM SATING AT 97%. RESPIRATORY EVEN AND UNLABORED, NO SOB NOTED. NO S/S OF DISTRESS NOTED. PATIENT WITH LEFT WRIST # 20 PERIPHERAL LINE, FLUSHED WITH NS, NO S/S OF INFILTRATION NOTED AT SITE. WITH LEFT DIRECTOR OF BUSINESS SYSTEMS SHUNT. ALL SAFETY MEASURES IN PLACE. BED IN LOWEST POSITION, LOCKED. BED ALARM ARMED. WILL CONTINUE PLAN OF CARE.
[2021-10-13 08:00] VITALS: BP 105/59
[2021-10-13] MEDS: HEPARIN SODIUM, PORCINE 5000 UNITS/1 ML VIAL SQ SCH ×2 (08:47→21:08)
[2021-10-13] MEDS: LEVETIRACETAM (500MG) 1,000 MG in IV NS 0.9% 100 ML IV SCH ×2 (08:49→21:06)
--- NOTE | 2021-10-13 08:50 | NUR ---
GTUBE OUT. CHARGE NURSE INFORMED. WAITING FOR GI CONSULT.
[2021-10-13] MEDS: LamoTRIgine 25 MG TABLET GT SCH ×2 (09:00→17:00)
[2021-10-13] MEDS: DOCUSATE SODIUM LIQ 100 MG/10 ML UDC GT SCH ×2 (09:00→17:00)
[2021-10-13] MEDS: POLYETHYLENE GLYCOL 3350 17 GM POWD.PACK PO SCH (09:00)
[2021-10-13] MEDS: FAMOTIDINE (20 MG) 20 MG TABLET GT SCH (09:00)
[2021-10-13] MEDS ORDERED: NEUTRA PHOS 1 POWD.PACKET GT ONE (10:00)
--- NOTE | 2021-10-13 10:06 | NUR ---
CHARGE NURSE AWARE. GT MEDS ON HOLD, GT OUT. AWAITING MD RESPONSE.
[2021-10-13] MEDS: DEXAMETHASONE SOD PHOSPHATE 10 MG/ML VIAL IV SCH (11:03)
[2021-10-13 12:00] VITALS: BP 109/58
[2021-10-13 16:00] VITALS: BP 100/71
--- NOTE | 2021-10-13 16:05 | NUR ---
spoke with [phone] re; GT was out stated will come today after office hrs over
--- NOTE | 2021-10-13 18:16 | NUR ---
RN CLOSING NOTES PATIENT AWAKE IN BED, A/O x 1, NON VERBAL. ON NASAL CANULA @ 3LPM WITH AN O2 SAT OF 97%. RESPIRATORY EVEN AND UNLABORED, NO SOB NOTED. NO S/S OF DISTRESS NOTED. PATIENT WITH LEFT WRIST # 20 PERIPHERAL LINE, FLUSHED WITH NS, NO S/S OF INFILTRATION NOTED AT SITE. WITH LEFT CENTRAL SUPPLY TECHNICIAN SHUNT. ALL SAFETY MEASURES IN PLACE. BED IN LOWEST POSITION, LOCKED. BED ALARM ON. WILL ENDORSE TO NEXT NURSE ON DUTY FOR CONTINUITY OF CARE.
--- NOTE | 2021-10-13 19:41 | NUR ---
RN NOTE PER REPORT FROM DAYSHIFT NURSE, GTUBE HAS BEEN DISLODGED. ALL GT MEDS HAVE BEEN HELD.
[2021-10-13 20:00] VITALS: BP 96/61
--- NOTE | 2021-10-13 21:55 | NUR ---
BIG DATA SOLUTIONS ARCHITECT OPENING NOTE PT RECEIVED IN BED, AWAKE, NON-VERBAL, MAKES EYE CONTACT; NOTED TO MAKE ATTEMPTS WITH COMMUNICATING, SOUNDS MUMBLING. PT ON 3L NC WITH CURRENT O2SAT OF 97%; PT SHOWS NO S/S OF RESP DISTRESS, NON-LABORED AND EQUAL BREATHING, NO SOB OR COUGH. PT ATTACHED TO EXTERNAL MONITOR SR WITH HR OF 84. PER ENDORSEMENT FROM DAYSHIFT NURSE, GTUBE HAS BEEN DISLODGED. IV ACCESS ON LEFT WRIST 22G WITH NS RUNNING AT 90 ML/HR. PT ALSO NOTED TO HAVE LEFT PSYCHOLOGY LECTURER SHUNT. BED IN LOWEST POSITION, CALL LIGHT WITHIN REACH, SIDE RAILS UP X3. WILL CONTINUE TO MONITOR THROUGHOUT THE NIGHT.
[2021-10-14] VITALS: BP 97/58
[2021-10-14] MEDS: IPRATROPIUM/ALBUTEROL INHALER IH SCH ×2 (02:10→19:51)
[2021-10-14] MEDS: IV NS 0.9% 1,000 ML IV PRN (03:59)
[2021-10-14 04:00] VITALS: BP 112/71
--- NOTE | 2021-10-14 07:37 | NUR ---
RN OPENING NOTE PT RECEIVED IN BED, AWAKE, NON-VERBAL, MAKES EYE CONTACT; NOTED TO MAKE ATTEMPTS WITH COMMUNICATING, SOUNDS MUMBLING. PT ON 3L NC; PT SHOWS NO S/S OF RESP DISTRESS, NON-LABORED AND EQUAL BREATHING, NO SOB OR COUGH. PT ATTACHED TO EXTERNAL MONITOR SR. PER ENDORSEMENT FROM PRESCHOOL PROGRAM DIRECTOR NURSE, GTUBE HAS BEEN DISLODGED. IV ACCESS ON LEFT WRIST 22G WITH NS RUNNING AT 90 ML/HR. PT ALSO NOTED TO HAVE LEFT FOOD SAFETY AUDITOR SHUNT. BED IN LOWEST POSITION, BED ALARM ACTIVATED, CALL LIGHT WITHIN REACH, SIDE RAILS UP X3 DUE TO SEIZURE PRECAUTIONS.
[2021-10-14 08:00] VITALS: BP 96/59
[2021-10-14] MEDS: FAMOTIDINE (20 MG) 20 MG TABLET GT SCH (09:00)
[2021-10-14] MEDS: DOCUSATE SODIUM LIQ 100 MG/10 ML UDC GT SCH ×2 (09:00→17:00)
[2021-10-14] MEDS: POLYETHYLENE GLYCOL 3350 17 GM POWD.PACK PO SCH (09:00)
[2021-10-14] MEDS: DEXAMETHASONE SOD PHOSPHATE 10 MG/ML VIAL IV SCH (09:01)
[2021-10-14] MEDS: LEVETIRACETAM (500MG) 1,000 MG in IV NS 0.9% 100 ML IV SCH ×2 (09:02→21:44)
[2021-10-14] MEDS: HEPARIN SODIUM, PORCINE 5000 UNITS/1 ML VIAL SQ SCH ×2 (09:03→21:45)
--- NOTE | 2021-10-14 09:06 | NUR ---
RN NOTE PATIENTS G TUBE DISLODGED GT MEDICATIONS NOT GIVEN PROVIDER AWARE.
[2021-10-14] MEDS: IV D5/ 0.9% NACL 1,000 ML IV PRN (11:47)
[2021-10-14 12:00] VITALS: BP 107/65
[2021-10-14 16:00] VITALS: BP 93/57
--- NOTE | 2021-10-14 18:35 | NUR ---
RN CLOSING NOTES PATIENT AWAKE IN BED, A/O x 1, NON VERBAL. ON NASAL CANULA @ 3LPM WITH AN O2 SAT OF 97%. RESPIRATORY EVEN AND UNLABORED, NO SOB NOTED. NO S/S OF DISTRESS NOTED. PATIENT WITH LEFT WRIST # 20 PERIPHERAL LINE; IVF D5 NS @75MLS/HR, NO S/S OF INFILTRATION NOTED AT SITE. WITH LEFT BOX SPRING MAKER SHUNT. ALL SAFETY MEASURES IN PLACE. BED IN LOWEST POSITION, LOCKED. BED ALARM ON. PT IS PENDING G-TUBE RE-INSERTION PER DR GOVEA. PT IS NPO PER G-TUBE STATUS, IS AWARE. WILL ENDORSE TO NEXT NURSE ON DUTY FOR CONTINUITY OF CARE.
[2021-10-14 20:00] VITALS: BP 93/58
--- NOTE | 2021-10-14 20:05 | NUR ---
ENGINEERING GROUP MANAGER OPENING NOTE RECEIVED PATIENT IN BED, AWAKE, NON-VERBAL, MAKES EYE CONTACT. ON O2 VIA NC AT 3LPM, PT SHOWS NO S/S OF RESP DISTRESS, NON-LABORED AND EQUAL BREATHING, NO SOB OR COUGH. PT ATTACHED TO EXTERNAL MONITOR CURRENTLY READING SR. PER ENDORSEMENT FROM AM SHIFT NURSE, GTUBE HAS BEEN DISLODGED AND STILL AWAITING FOR PLACEMENT BY DR GOVEA. IV ACCESS ON LEFT WRIST 22G WITH D5 NS RUNNING AT 75 ML/HR. PT ALSO NOTED TO HAVE LEFT FOOTWEAR SALES LEADER SHUNT. BED IN LOWEST POSITION, BED ALARM ACTIVATED, CALL LIGHT WITHIN REACH, SIDE RAILS UP X3, SEIZURE PRECAUTIONS IN PLACED, WILL MAINTAIN ISOLATION PRECAUTION, WILL CONTINUE TO MONITOR THROUGHOUT THE SHIFT.
[2021-10-15] VITALS: BP 100/66
[2021-10-15] MEDS: IV D5/ 0.9% NACL 1,000 ML IV PRN ×2 (01:47→18:47)
[2021-10-15] MEDS: IPRATROPIUM/ALBUTEROL INHALER IH SCH (01:48)
[2021-10-15] MEDS ORDERED: ONDANSETRON HCL 4 MG/5 ML SOLUTION PO PRN (02:00)
[2021-10-15 04:00] VITALS: BP 104/70
--- NOTE | 2021-10-15 06:44 | NUR ---
TIRE CHANGER CLOSING NOTE PATIENT IN BED, AWAKE, NON-VERBAL, MAKES EYE CONTACT AND TRYING TO MUMBLES WORDS. ON O2 VIA NC AT 3LPM, PT SHOWS NO S/S OF RESP DISTRESS, NON-LABORED AND EQUAL BREATHING, NO SOB NOTED. PT ATTACHED TO EXTERNAL MONITOR CURRENTLY READING SR. GTUBE HAS BEEN DISLODGED AND STILL AWAITING FOR PLACEMENT BY DR GOVEA. NPO STATUS MAINTAINED. IV ACCESS ON LEFT WRIST 22G WITH D5 NS RUNNING AT 75 ML/HR. ALL DUE MEDS GIVEN, KEPT DRY AND CLEAN. BED IN LOWEST AND LOCKED POSITION, BED ALARM ACTIVATED, CALL LIGHT WITHIN REACH, SIDE RAILS UP X3, ISOLATION PRECAUTION IN PLACED, WILL CONTINUE TO MONITOR THROUGHOUT THE SHIFT.
--- NOTE | 2021-10-15 07:29 | NUR ---
SHIPS OR BARGES LOADER OPENING NOTE RECEIVED PATIENT IN BED, AWAKE, NON-VERBAL, MAKES EYE CONTACT. ON O2 VIA NC AT 3LPM, PT SHOWS NO S/S OF RESP DISTRESS, NON-LABORED AND EQUAL BREATHING, NO SOB OR COUGH. PT ATTACHED TO EXTERNAL MONITOR CURRENTLY READING SR. PER ENDORSEMENT FROM AM SHIFT NURSE, GTUBE HAS BEEN DISLODGED AND STILL AWAITING FOR PLACEMENT BY DR GOVEA. IV ACCESS ON LEFT WRIST 22G WITH D5 NS RUNNING AT 75 ML/HR. PT ALSO NOTED TO HAVE LEFT NEMATOLOGIST SHUNT. BED IN LOWEST POSITION, BED ALARM ACTIVATED, CALL LIGHT WITHIN REACH, SIDE RAILS UP X3, SEIZURE PRECAUTIONS IN PLACED, WILL MAINTAIN ISOLATION PRECAUTION.
[2021-10-15 08:00] VITALS: BP 96/66
[2021-10-15] MEDS: DEXAMETHASONE SOD PHOSPHATE 10 MG/ML VIAL IV SCH (08:26)
[2021-10-15] MEDS: HEPARIN SODIUM, PORCINE 5000 UNITS/1 ML VIAL SQ SCH ×2 (08:27→21:18)
[2021-10-15] MEDS: POLYETHYLENE GLYCOL 3350 17 GM POWD.PACK PO SCH (09:00)
[2021-10-15] MEDS: DOCUSATE SODIUM LIQ 100 MG/10 ML UDC GT SCH ×2 (09:00→17:00)
[2021-10-15] MEDS: FAMOTIDINE (20 MG) 20 MG TABLET GT SCH (09:00)
--- NOTE | 2021-10-15 09:00 | NUR ---
MARIAH HALL NOTIFIED REGARDING PT. PENDING PEG REPLACEMENT,STILL AWAITS ALE LIU C/O DR. GOVEA.
[2021-10-15] MEDS: LEVETIRACETAM (500MG) 1,000 MG in IV NS 0.9% 100 ML IV SCH ×2 (09:15→20:52)
--- NOTE | 2021-10-15 09:18 | NUR ---
RN NOTE 0900 GT MEDICATION PENDING G TUBE PLACEMENT PROVIDER AWARE.
[2021-10-15 12:00] VITALS: BP 99/63
--- NOTE | 2021-10-15 12:52 | NUR ---
RN NOTE SECOND ATTEMPT TO CONTACT FAMILY REGARDING RE INSERTION OF G TUBE. PHONE NUMBER LISTED UNDER CONTACT INFORMATION IS DISCONNECTED.
[2021-10-15 15:05] LABS: BASOPHILS % (AUTO) 0.2 % (0.0-2.0); HEMATOCRIT 48 % (39-51); HEMOGLOBIN 15.8 g/dL (13.5-17.5); LYMPHOCYTES # (AUTO) 0.8 K/uL (0.8-4.8); LYMPHOCYTES % (AUTO) 13.5 % (20.0-44.0); MEAN CORPUSCULAR HGB CONC 33 g/dl (31.0-36.0); MEAN CORPUSCULAR VOLUME 84 fL (80-96); MONOCYTES # (AUTO) 0.3 K/uL (0.1-1.30); MONOCYTES % (AUTO) 4.9 % (2.0-12.0); NEUTROPHILS # (AUTO) 4.7 K/uL (1.8-8.9); NEUTROPHILS % (AUTO) 81.4 % (43.0-81.0); PLATELET COUNT (AUTO) 234 K/uL (150-450); RED BLOOD CELL COUNT(AUTO) 5.69 MIL/uL (4.5-6.0); WHITE BLOOD COUNT (AUTO) 5.8 K/uL (4.3-11.0)
[2021-10-15 15:19] LABS: CALCIUM, SERUM 8.1 mg/dL (8.5-10.1); CREATININE 0.5 mg/dL (0.6-1.3); MAGNESIUM 2.2 mg/dL (1.8-2.4); POTASSIUM 3.7 mmol/L (3.5-5.1)
[2021-10-15 16:00] VITALS: BP 98/75
--- NOTE | 2021-10-15 16:57 | NUR ---
FOLLOW UP WITH MELISSA MARTINEZ REGARDING G-TUBE REPLACEMENT,PENDING.
--- NOTE | 2021-10-15 16:58 | NUR ---
STILL AWAITS DR. JEFERSON LIU FOR PEG REPLACEMENT.
--- NOTE | 2021-10-15 18:39 | NUR ---
PROJECT MANAGEMENT INSTRUCTOR CLOSING NOTE PATIENT IN BED, AWAKE, NON-VERBAL, MAKES EYE CONTACT AND TRYING TO MUMBLES WORDS. ON O2 VIA NC AT 3LPM, PT SHOWS NO S/S OF RESP DISTRESS, NON-LABORED AND EQUAL BREATHING, NO SOB NOTED. PT ATTACHED TO EXTERNAL MONITOR CURRENTLY READING SR. GTUBE HAS BEEN DISLODGED AND STILL AWAITING FOR PLACEMENT BY DR GOVEA. NPO STATUS MAINTAINED. IV ACCESS ON LEFT WRIST 22G WITH D5 NS RUNNING AT 75 ML/HR. ALL DUE MEDS GIVEN, KEPT DRY AND CLEAN. BED IN LOWEST AND LOCKED POSITION, BED ALARM ACTIVATED, CALL LIGHT WITHIN REACH, SIDE RAILS UP X3, ISOLATION PRECAUTION IN PLACED, WILL ENDORSE TO NIGHT NURSE FOR JUDE
--- NOTE | 2021-10-15 19:30 | NUR ---
RN OPENING NOTE RECEIVED PATIENT RESTING IN BED. AWAKE, NON-VERBAL AT BASELINE. NO S/SX OF PAIN NOTED AT THIS TIME. CONTINUES ON O2 3L VIA NC WITH NO S/SX OF RESPIRATORY DISTRESS NOTED. IV ACCESS TO LEFT WRIST #20G INTACT AND PATENT. CONTINUES ON IVF D5NS @ 75ML/HR. AWAITING REPLACEMENT OF G-TUBE D/T DISLODGEMENT. CONTINUES ON NPO STATUS. CALL LIGHT WITHIN REACH. ASPIRATION, FALL AND SAFETY PRECAUTIONS MAINTAINED. ALL NEEDS ATTENDED TO AT THIS TIME.
[2021-10-15 20:00] VITALS: BP 100/65
[2021-10-16] VITALS: BP 100/65
[2021-10-16] MEDS: IPRATROPIUM/ALBUTEROL INHALER IH SCH (01:00)
[2021-10-16 04:00] VITALS: BP 146/84
[2021-10-16] MEDS: IV D5/ 0.9% NACL 1,000 ML IV PRN ×2 (06:14→19:46)
--- NOTE | 2021-10-16 06:20 | NUR ---
MS/RN CLOSING NOTE PATIENT CURRENTLY RESTING IN BED. AWAKE, NON-VERBAL AT BASELINE. NO S/SX OF PAIN NOTED AT THIS TIME. CONTINUES ON O2 3L VIA NC WITH NO S/SX OF RESPIRATORY DISTRESS NOTED. IV ACCESS TO LEFT WRIST #20G INTACT AND PATENT. CONTINUES ON IVF D5NS @ 75ML/HR. AWAITING REPLACEMENT OF G-TUBE D/T DISLODGEMENT. CONTINUES ON NPO STATUS. CALL LIGHT WITHIN REACH. ASPIRATION, FALL AND SAFETY PRECAUTIONS MAINTAINED. WILL ENDORSE PLAN OF CARE TO ONCOMING SHIFT RN.
[2021-10-16 07:15] LABS: BASOPHILS % (AUTO) 0.1 % (0.0-2.0); HEMATOCRIT 48 % (39-51); HEMOGLOBIN 16.2 g/dL (13.5-17.5); LYMPHOCYTES # (AUTO) 2.1 K/uL (0.8-4.8); MEAN CORPUSCULAR HGB CONC 34 g/dl (31.0-36.0); MEAN CORPUSCULAR VOLUME 84 fL (80-96); MONOCYTES # (AUTO) 1.5 K/uL (0.1-1.30); MONOCYTES % (AUTO) 14.8 % (2.0-12.0); NEUTROPHILS # (AUTO) 6.4 K/uL (1.8-8.9); NEUTROPHILS % (AUTO) 64.1 % (43.0-81.0); PLATELET COUNT (AUTO) 232 K/uL (150-450); RED BLOOD CELL COUNT(AUTO) 5.69 MIL/uL (4.5-6.0); WHITE BLOOD COUNT (AUTO) 10.1 K/uL (4.3-11.0)
[2021-10-16 07:38] LABS: CALCIUM, SERUM 8.3 mg/dL (8.5-10.1); CREATININE 0.6 mg/dL (0.6-1.3); MAGNESIUM 2.2 mg/dL (1.8-2.4); POTASSIUM 3.5 mmol/L (3.5-5.1)
--- NOTE | 2021-10-16 07:46 | NUR ---
RN OPENING NOTE PATIENT CURRENTLY RESTING IN BED. AWAKE, NON-VERBAL AT BASELINE. NO S/SX OF PAIN NOTED AT THIS TIME. CONTINUES ON O2 3L VIA NC WITH NO S/SX OF RESPIRATORY DISTRESS NOTED. IV ACCESS TO LEFT WRIST #20G INTACT AND PATENT. CONTINUES ON IVF D5NS @ 75ML/HR. AWAITING REPLACEMENT OF G-TUBE D/T DISLODGEMENT. CONTINUES ON NPO STATUS. CALL LIGHT WITHIN REACH. ASPIRATION, FALL AND SAFETY PRECAUTIONS MAINTAINED. WILL CONTINUE PLAN O0F CARE AND ANTICIPATE NEEDS.
[2021-10-16 08:00] VITALS: BP 96/62
[2021-10-16] MEDS: DOCUSATE SODIUM LIQ 100 MG/10 ML UDC GT SCH ×2 (09:00→17:00)
[2021-10-16] MEDS: HEPARIN SODIUM, PORCINE 5000 UNITS/1 ML VIAL SQ SCH ×2 (09:00→20:55)
[2021-10-16] MEDS: POLYETHYLENE GLYCOL 3350 17 GM POWD.PACK PO SCH (09:00)
[2021-10-16] MEDS: FAMOTIDINE (20 MG) 20 MG TABLET GT SCH (09:00)
--- NOTE | 2021-10-16 09:17 | NUR ---
NON ADMINISTRATION OF PEPCID AND COLACE. PENDING PLACEMENT OF G-TUBE.
[2021-10-16] MEDS: DEXAMETHASONE SOD PHOSPHATE 10 MG/ML VIAL IV SCH (09:21)
--- NOTE | 2021-10-16 09:22 | NUR ---
HELD PATIENTS DOSE OF HEPARIN. PATIENT IS HAVING A G-TUBE PLACED TODAY.
[2021-10-16] MEDS: LEVETIRACETAM (500MG) 1,000 MG in IV NS 0.9% 100 ML IV SCH ×2 (09:23→20:52)
[2021-10-16 16:00] VITALS: BP 98/54
--- NOTE | 2021-10-16 17:08 | NUR ---
NON ADMINISTRATION OF COLACE. PENDING PLACEMENT OF G-TUBE.
--- NOTE | 2021-10-16 18:29 | NUR ---
RN CLOSING NOTE PATIENT CURRENTLY RESTING IN BED. AWAKE, NON-VERBAL AT BASELINE. NO S/SX OF PAIN NOTED AT THIS TIME. CONTINUES ON O2 3L VIA NC WITH NO S/SX OF RESPIRATORY DISTRESS NOTED. IV ACCESS TO LEFT WRIST #20G INTACT AND PATENT. CONTINUES ON IVF D5NS @ 75ML/HR. AWAITING REPLACEMENT OF G-TUBE D/T DISLODGEMENT. CONTINUES ON NPO STATUS. CALL LIGHT WITHIN REACH. ASPIRATION, FALL AND SAFETY PRECAUTIONS MAINTAINED. KEPT CLEAN AND DRY THROUGHOUT SHIFT. WILL ENDORSE TO NIGHTSHIFT RN FOR CONTINUATION OF CARE.
--- NOTE | 2021-10-16 19:00 | NUR ---
RN NOTE RECEIVED PATIENT IN BED, AO X 2-3, FOLLOWS COMMANDS, IN NO S/SX OF ACUTE DISTRESS AT THIS TIME, RESPIRATION UNLABORED, SATURATION AT 97 ON 3L VIA NC, HR IS 68. IV SITE AT L WRIST 20G, PATENT AND FLUSHING WELL, NO S/S OF INFECTION OR INFILTRATION, WITH D5 NS INFUSING AT 75 ML/HR. OLD DISLODGED GTUBE KEPT PATENT, CLAMPED AND SECURED WITH DRESSING. SAFETY MEASURES IMPLEMENTED. PATIENT BED ALARM IS ON. HEAD OF BED ELEVATED. BED IS LOCKED, IN LOWEST POSITION AND SIDE RAILS UP. CALL LIGHT WITHIN REACH OF THE PATIENT. WILL CONTINUE TO MONITOR AND REASSESS FOR ANY CHANGES.
[2021-10-16 20:00] VITALS: BP 106/64
[2021-10-17 01:14] VITALS: BP 106/64
[2021-10-17 04:00] VITALS: BP 98/62
--- NOTE | 2021-10-17 07:16 | NUR ---
RN OPENING NOTE PATIENT CURRENTLY RESTING IN BED. AWAKE, NON-VERBAL AT BASELINE. NO S/SX OF PAIN NOTED AT THIS TIME. ON ROOM AIR, TOLERATING WELL EVIDENCED BY NO S/SX OF RESPIRATORY DISTRESS. OXYGEN SATURATION AT 95%. IV ACCESS TO LEFT WRIST #20G INTACT AND PATENT. CONTINUES ON IVF D5NS @ 75ML/HR. AWAITING REPLACEMENT OF G-TUBE D/T DISLODGEMENT. CONTINUES ON NPO STATUS. CALL LIGHT WITHIN REACH. ASPIRATION, FALL AND SAFETY PRECAUTIONS MAINTAINED. WILL CONTINUE PLAN OF CARE AND ANTICIPATE NEEDS.
[2021-10-17 07:26] LABS: BASOPHILS % (AUTO) 0.1 % (0.0-2.0); HEMATOCRIT 47 % (39-51); HEMOGLOBIN 15.5 g/dL (13.5-17.5); LYMPHOCYTES # (AUTO) 2.7 K/uL (0.8-4.8); LYMPHOCYTES % (AUTO) 27.4 % (20.0-44.0); MEAN CORPUSCULAR HGB CONC 33 g/dl (31.0-36.0); MEAN CORPUSCULAR VOLUME 85 fL (80-96); MONOCYTES # (AUTO) 1.6 K/uL (0.1-1.30); MONOCYTES % (AUTO) 15.7 % (2.0-12.0); NEUTROPHILS # (AUTO) 5.7 K/uL (1.8-8.9); NEUTROPHILS % (AUTO) 56.8 % (43.0-81.0); PLATELET COUNT (AUTO) 235 K/uL (150-450); RED BLOOD CELL COUNT(AUTO) 5.52 MIL/uL (4.5-6.0)
[2021-10-17 08:00] VITALS: BP 95/58
[2021-10-17 08:09] LABS: CALCIUM, SERUM 8.2 mg/dL (8.5-10.1); CREATININE 0.5 mg/dL (0.6-1.3); MAGNESIUM 2.2 mg/dL (1.8-2.4); POTASSIUM 3.2 mmol/L (3.5-5.1)
[2021-10-17] MEDS: DOCUSATE SODIUM LIQ 100 MG/10 ML UDC GT SCH ×3 (08:44→17:54)
[2021-10-17] MEDS: POLYETHYLENE GLYCOL 3350 17 GM POWD.PACK PO SCH (08:45)
[2021-10-17] MEDS: FAMOTIDINE (20 MG) 20 MG TABLET GT SCH (08:45)
--- NOTE | 2021-10-17 08:45 | NUR ---
NON ADMINISTRATION OF 0900 GT MEDICATIONS. PENDING PLACEMENT OF G-TUBE.
[2021-10-17 09:08] LABS: BASOPHILS % (MANUAL) 0 % (0.0-2.0); EOSINOPHILS % (MANUAL) 0 % (0-4); LYMPHOCYTES % (MANUAL) 30 % (16-48); MONOCYTES % (MANUAL) 14 % (0-11.0); NEUTROPHILS % (MANUAL) 56 (42-76)
[2021-10-17] MEDS: LEVETIRACETAM (500MG) 1,000 MG in IV NS 0.9% 100 ML IV SCH ×2 (09:22→21:29)
[2021-10-17] MEDS: DEXAMETHASONE SOD PHOSPHATE 10 MG/ML VIAL IV SCH (09:22)
[2021-10-17] MEDS: IV D5/ 0.9% NACL 1,000 ML IV PRN ×2 (09:58→21:45)
[2021-10-17] MEDS: POTASSIUM CL. PREMIX PERIPHER. 50 ML IV SCH ×4 (10:35→13:53)
[2021-10-17] MEDS: HEPARIN SODIUM, PORCINE 5000 UNITS/1 ML VIAL SQ SCH ×2 (12:41→21:30)
[2021-10-17] MEDS ORDERED: ANESTHESIA TRAY IN PYXIS 1 EA TRAY MC ONE (15:41)
[2021-10-17 16:00] VITALS: BP 92/58
--- NOTE | 2021-10-17 17:54 | NUR ---
NON ADMINISTRATION OF COLACE. PENDING PLACEMENT OF G-TUBE.
--- NOTE | 2021-10-17 18:54 | NUR ---
RN CLOSING NOTE PATIENT CURRENTLY RESTING IN BED. AWAKE, NON-VERBAL AT BASELINE. NO S/SX OF PAIN NOTED AT THIS TIME. ON ROOM AIR, TOLERATING WELL EVIDENCED BY NO S/SX OF RESPIRATORY DISTRESS. OXYGEN SATURATION AT 95%. IV ACCESS TO LEFT WRIST #20G INTACT AND PATENT. CONTINUES ON IVF D5NS @ 75ML/HR. AWAITING REPLACEMENT OF G-TUBE D/T DISLODGEMENT. CONTINUES ON NPO STATUS. CALL LIGHT WITHIN REACH. ASPIRATION, FALL AND SAFETY PRECAUTIONS MAINTAINED. WILL ENDORSE TO ADRIANNE FOR CONTINUATION OF CARE.
--- NOTE | 2021-10-17 19:10 | NUR ---
RN NOTE RECEIVED PATIENT IN BED, AO X 2-3, FOLLOWS COMMANDS, IN NO ACUTE DISTRESS AT THIS TIME, RESPIRATION UNLABORED, SATURATION AT 97 ON ROOM AIR, HR IS 66. IV SITE AT L WRIST 20G, PATENT AND FLUSHING WELL, NO S/S OF INFECTION OR INFILTRATION, WITH D5 NS INFUSING AT 75 ML/HR. OLD DISLODGED GTUBE CLAMPED AND SECURED WITH DRESSING. SAFETY MEASURES IMPLEMENTED. PATIENT BED ALARM IS ON. HEAD OF BED ELEVATED. BED IS LOCKED, IN LOWEST POSITION AND SIDE RAILS UP. CALL LIGHT WITHIN REACH OF THE PATIENT. WILL CONTINUE TO MONITOR AND REASSESS FOR ANY CHANGES.
[2021-10-17] MEDS: IPRATROPIUM/ALBUTEROL INHALER IH SCH (19:30)
[2021-10-17 20:00] VITALS: BP 95/63
[2021-10-18] VITALS: BP 95/63
[2021-10-18] MEDS: IPRATROPIUM/ALBUTEROL INHALER IH SCH ×4 (01:34→20:01)
[2021-10-18 04:00] VITALS: BP 97/59
--- NOTE | 2021-10-18 06:00 | NUR ---
RN NOTE TELEPHONE CALL TO PATIENT'S NEXT OF KIN AT [phone], COSME OTOOLE VERIFIED SHE IS GIVING CONSENT FOR PATIENT TO HAVE PEG INSERTION AND EGD PROCEDURE WELL CONSENT FOR ANESTHESIA AND BLOOD TRANSFUSION IF NEEDED, SHE STATED "YES" WITNESSED BY SAYRA HANNA RN.
--- NOTE | 2021-10-18 07:36 | NUR ---
RN NOTE RECEIVED PATIENT IN BED, AO X 1-2, FOLLOWS COMMANDS, IN NO ACUTE DISTRESS AT THIS TIME, RESPIRATION UNLABORED, SATURATION AT 97 ON ROOM AIR, HR IS 66. IV SITE AT L WRIST 20G, PATENT AND FLUSHING WELL, NO S/S OF INFECTION OR INFILTRATION, INFUSING D5NS INFUSING AT 75 ML/HR. OLD DISLODGED GTUBE CLAMPED AND SECURED WITH DRESSING. SAFETY MEASURES IMPLEMENTED. PATIENT BED ALARM IS ON. HEAD OF BED ELEVATED. BED IS LOCKED, IN LOWEST POSITION AND SIDE RAILS UP. CALL LIGHT WITHIN REACH OF THE PATIENT. WILL CONTINUE PLAN OF CARE.
[2021-10-18 07:57] LABS: BASOPHILS # (AUTO) 0.1 K/uL (0.0-0.2); BASOPHILS % (AUTO) 0.4 % (0.0-2.0); EOSINOPHILS % (AUTO) 0.1 % (0.0-6.0); HEMATOCRIT 45 % (39-51); HEMOGLOBIN 15.1 g/dL (13.5-17.5); LYMPHOCYTES # (AUTO) 3.3 K/uL (0.8-4.8); LYMPHOCYTES % (AUTO) 26.4 % (20.0-44.0); MEAN CORPUSCULAR HGB CONC 34 g/dl (31.0-36.0); MEAN CORPUSCULAR VOLUME 84 fL (80-96); MONOCYTES # (AUTO) 1.8 K/uL (0.1-1.30); MONOCYTES % (AUTO) 14.2 % (2.0-12.0); NEUTROPHILS # (AUTO) 7.3 K/uL (1.8-8.9); NEUTROPHILS % (AUTO) 58.9 % (43.0-81.0); PLATELET COUNT (AUTO) 242 K/uL (150-450); WHITE BLOOD COUNT (AUTO) 12.4 K/uL (4.3-11.0)
[2021-10-18 08:00] VITALS: BP 102/56
[2021-10-18 08:13] LABS: CALCIUM, SERUM 8.4 mg/dL (8.5-10.1); CREATININE 0.5 mg/dL (0.6-1.3); POTASSIUM 3.4 mmol/L (3.5-5.1)
[2021-10-18] MEDS: DOCUSATE SODIUM LIQ 100 MG/10 ML UDC GT SCH ×2 (08:25→16:27)
[2021-10-18] MEDS: FAMOTIDINE (20 MG) 20 MG TABLET GT SCH (08:25)
[2021-10-18] MEDS: POLYETHYLENE GLYCOL 3350 17 GM POWD.PACK PO SCH (08:27)
[2021-10-18] MEDS: DEXAMETHASONE SOD PHOSPHATE 10 MG/ML VIAL IV SCH (08:53)
[2021-10-18] MEDS: LEVETIRACETAM (500MG) 1,000 MG in IV NS 0.9% 100 ML IV SCH ×2 (08:54→21:11)
[2021-10-18] MEDS: POTASSIUM CL. PREMIX PERIPHER. 50 ML IV SCH ×2 (10:11→11:04)
--- NOTE | 2021-10-18 10:32 | NUR ---
ALL CONSENTS AND OR CHECKLIST FOR PLANNED PROCEDURE VERIFIED AND COMPLETE.
[2021-10-18] MEDS: IV D5/ 0.9% NACL 1,000 ML IV PRN (11:02)
--- NOTE | 2021-10-18 15:41 | NUR ---
GT REINSERTED BY MD. PT TOLERATED PROCEDURE WELL. WILL RESTART GT FEEDING ORDERED AND TOLERATED.
[2021-10-18] MEDS: JEVITY 1.2 CAL 1,000 ML BOTTLE GT PRN ×2 (15:58→16:10)
[2021-10-18 16:00] VITALS: BP 92/60
--- NOTE | 2021-10-18 18:30 | NUR ---
RN CLOSING NOTE PATIENT CURRENTLY RESTING IN BED. AWAKE. NO S/SX OF PAIN. ON ROOM AIR, TOLERATING WELL, NO S/SX OF RESPIRATORY DISTRESS. OXYGEN SATURATION IS AT 97%. IV ACCESS TO LEFT WRIST #20G INTACT AND PATENT INFUSING D5NS AT 75ML/HR. G-TUBE PATENT AND INTACT. GT FEEDING INFUSING AT 35ML/HR. PT IS STILL ON NPO STATUS. ALL SAFETY MEASURES IN PLACE. CALL LIGHT WITHIN REACH. ASPIRATION, FALL AND SAFETY PRECAUTIONS MAINTAINED. WILL ENDORSE TO NEXT NURSE ON DUTY FOR CONTINUITY OF CARE.
--- NOTE | 2021-10-18 19:05 | NUR ---
RN NOTE RECEIVED PATIENT IN BED, AO X 2-3, FOLLOWS COMMANDS, IN NO ACUTE DISTRESS AT THIS TIME, RESPIRATION UNLABORED, SATURATION AT 95 ON ROOM AIR, HR IS 75. IV SITE AT L WRIST 20G, PATENT AND FLUSHING WELL, NO S/S OF INFECTION OR INFILTRATION, WITH D5 NS INFUSING AT 75 ML/HR. GTUBE IN PLACE, POSITIVE PLACEMENT NOTED, NO RESIDUAL, WITH TUBE FEEDING OF JEVITY AT 35 ML/HR WITH MD ORDERS TO CHECK RESIDUAL AND ADVANCE RATE BY 10 ML/HR Q4H TO A GOAL OF 65 ML/HR. SAFETY MEASURES IMPLEMENTED. PATIENT BED ALARM IS ON. HEAD OF BED ELEVATED. BED IS LOCKED, IN LOWEST POSITION AND SIDE RAILS UP. CALL LIGHT WITHIN REACH OF THE PATIENT. WILL CONTINUE TO MONITOR AND REASSESS FOR ANY CHANGES.
[2021-10-18 20:00] VITALS: BP 100/55
[2021-10-19] VITALS: BP 100/55
[2021-10-19] MEDS: IV D5/ 0.9% NACL 1,000 ML IV PRN (01:10)
[2021-10-19] MEDS: IPRATROPIUM/ALBUTEROL INHALER IH SCH ×3 (01:10→13:48)
[2021-10-19] MEDS ORDERED: POLYETHYLENE GLYCOL 3350 17 GM POWD.PACK GT SCH (06:07)
--- NOTE | 2021-10-19 07:22 | NUR ---
RN OPEN NOTE PT IS IN BED, AWAKE, NON-VERBAL, MAKES EYE CONTACT; SOUNDS MUMBLING. PT ON OXYGEN 3L VIA NC; NO S/S OF RESP DISTRESS, NON-LABORED AND EQUAL BREATHING, NO SOB OR COUGH. GTUBE IN PLACE WITH , RUNNING JEVITY AT 65 ML/HR IV ACCESS ON LEFT WRIST 22G WITH NS RUNNING AT 75 ML/HR. BED IN LOWEST POSITION, BED ALARM ACTIVATED, CALL LIGHT WITHIN REACH, SIDE RAILS UP X3 DUE TO SEIZURE PRECAUTIONS. WILL CONTINUE TO MONITOR
[2021-10-19 08:00] VITALS: BP 89/57
[2021-10-19] MEDS: FAMOTIDINE (20 MG) 20 MG TABLET GT SCH (08:53)
[2021-10-19] MEDS: DOCUSATE SODIUM LIQ 100 MG/10 ML UDC GT SCH (08:53)
[2021-10-19] MEDS: DEXAMETHASONE SOD PHOSPHATE 10 MG/ML VIAL IV SCH (08:57)
[2021-10-19] MEDS ORDERED: LEVETIRACETAM SOL (5 ML) 100 MG/ML UDC GT SCH (09:00)
[2021-10-19] MEDS ORDERED: HEPARIN SODIUM, PORCINE 5000 UNITS/1 ML VIAL SQ SCH (09:00)
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
--- NOTE | 2021-10-19 15:50 | NUR ---
DAJUAN bermeoe patient was discharged to the [facility]
== END 2021-10-19 15:35 | DRG 137 ==
LOC: ER 07:14 → TRANSITION 11:33 → TELE1 15:37 → MEDSG1 10-15 10:41
PROVIDERS: ADMIT Internal Medicine; ATTEND Nurse Practitioner Family
PROC: 0DH67UZ Insertion of Feeding Device into Stomach, Via Natural or Artificial Opening (ICD-10-PCS; principal; 2021-10-18)
DX: U07.1 COVID-19 (principal); J12.82 Pneumonia due to coronavirus disease 2019; G82.50 Quadriplegia, unspecified; G93.40 Encephalopathy, unspecified; K94.23 Gastrostomy malfunction; G40.909 Epilepsy, unspecified, not intractable, without status epilepticus; G81.91 Hemiplegia, unspecified affecting right dominant side; Z87.820 Personal history of traumatic brain injury; R13.10 Dysphagia, unspecified; W34.00XS Accidental discharge from unspecified firearms or gun, sequela; S01.93XS Puncture wound without foreign body of unspecified part of head, sequela; Z86.14 Personal history of Methicillin resistant Staphylococcus aureus infection; Z98.2 Presence of cerebrospinal fluid drainage device; Z79.51 Long term (current) use of inhaled steroids; Z79.899 Other long term (current) drug therapy; Y83.3 Surgical operation with formation of external stoma as the cause of abnormal reaction of the patient, or of later complication, without mention of misadventure at the time of the procedure; Y92.129 Unspecified place in nursing home as the place of occurrence of the external cause; Y82.8 Other medical devices associated with adverse incidents; R09.02 Hypoxemia
CPT/HCPCS: 36415; 36600; 71045-TC; 80048-TC; 80053-TC; 80076-TC; 82803-TC; 82962-TC; 83605-TC; 83735-TC; 84100-TC; 85025-TC; 85378-TC; 85730-TC; 86140-TC; 87081-TC; 94664; 94799-TC; A4349; A6253; C9803; G0378; J1100; J1644; J1953; J3480; J7030; J7042; J7050

== ENCOUNTER 2022-05-22 15:48 | Emergency (ER) | payer MEDICAID ==
[~2022-05-22] VITALS: Ht 170.2 cm; Wt 71.7 kg
[~2022-05-22 15:48] MED LIST changes: +CRAN3875 GT; -IPRA3AMP23 IH; -NUT.237L25 GT; +NUTR250L62 GT; -PHEN60TA11 GT
--- NOTE | 2022-05-22 15:50 | NUR ---
BIBA FROM [facility] ([facility]) for white growth in mouth. A/O x 2 per baseline
--- NOTE | 2022-05-22 16:01 | NUR ---
DR. SMITH AT BEDSIDE
--- NOTE | 2022-05-22 16:25 | NUR ---
UNIFORM ATTENDANT AT BEDSIDE
[2022-05-22 16:41] LABS: EOSINOPHILS % (AUTO) 0.3 % (0.0-6.0); HEMATOCRIT 49 % (39-51); HEMOGLOBIN 16.1 g/dL (13.5-17.5); LYMPHOCYTES # (AUTO) 1.1 K/uL (0.8-4.8); LYMPHOCYTES % (AUTO) 5.8 % (20.0-44.0); MEAN CORPUSCULAR HGB CONC 33 g/dl (31.0-36.0); MEAN CORPUSCULAR VOLUME 85 fL (80-96); MONOCYTES # (AUTO) 0.8 K/uL (0.1-1.30); MONOCYTES % (AUTO) 4.1 % (2.0-12.0); NEUTROPHILS # (AUTO) 16.8 K/uL (1.8-8.9); NEUTROPHILS % (AUTO) 89.8 % (43.0-81.0); PLATELET COUNT (AUTO) 289 K/uL (150-450); RED BLOOD CELL COUNT(AUTO) 5.77 MIL/uL (4.5-6.0); WHITE BLOOD COUNT (AUTO) 18.7 K/uL (4.3-11.0)
[2022-05-22 16:58] LABS: CALCIUM, SERUM 9.2 mg/dL (8.5-10.1); CREATININE 0.6 mg/dL (0.6-1.3); POTASSIUM 3.9 mmol/L (3.5-5.1)
[2022-05-22 17:12] LABS: BILIRUBIN,TOTAL 0.2 mg/dL (0.2-1.0); MAGNESIUM 2.1 mg/dL (1.8-2.4); TOTAL PROTEIN, SERUM 8.1 g/dL (6.4-8.2)
[2022-05-22] MEDS ORDERED: METR500T GT (18:11)
[2022-05-22] MEDS ORDERED: FLUC200T8 GT (18:11)
[2022-05-22] MEDS ORDERED: AMOX-430 GT (18:11)
[2022-05-22] MEDS ORDERED: IV NS 0.9% 250 ML IV ONE (18:47)
[2022-05-22] MEDS ORDERED: IOHEXOL-300 100 ML VIAL IV ONE (18:47)
--- NOTE | 2022-05-22 19:33 | NUR ---
endorsed to shift foreman for continuation of care
--- NOTE | 2022-05-22 20:30 | NUR ---
US GUIDED R EJ INSERTED BY MD SMITH
--- NOTE | 2022-05-22 22:45 | NUR ---
CALLED [facility] FOR TRANSPORTATION ETA 5-10 MINS
--- NOTE | 2022-05-22 23:08 | NUR ---
REPORT TO CARY GRAFF AT [facility]
[2022-05-22 23:17] VITALS: BP 134/70
--- NOTE | 2022-05-22 23:17 | NUR ---
report given to EMS at bedside
== END 2022-05-22 23:18 ==
LOC: ER 15:49
DX: K13.70 Unspecified lesions of oral mucosa (principal); K05.10 Chronic gingivitis, plaque induced; B37.0 Candidal stomatitis; R51.9 Headache, unspecified; Z79.899 Other long term (current) drug therapy
CPT/HCPCS: 99285; 70487; 85025; 83735; 36415; 80053; J7050; Q9967

== ENCOUNTER 2023-07-03 21:38 | Inpatient (IN) | payer MEDICAID ==
[~2023-07-03] VITALS: Ht 165.1 cm; Wt 84.8 kg
[~2023-07-03 21:38] MED LIST changes: +AMOX-430 GT; +FLUC200T8 GT; +METR500T GT
[2023-07-03 22:17] LABS: BASOPHILS # (AUTO) 0.2 K/uL (0.0-0.2); BASOPHILS % (AUTO) 0.9 % (0.0-2.0); EOSINOPHILS % (AUTO) 0.1 % (0.0-6.0); HEMATOCRIT 44 % (39-51); HEMOGLOBIN 14.3 g/dL (13.5-17.5); LYMPHOCYTES # (AUTO) 0.6 K/uL (0.8-4.8); LYMPHOCYTES % (AUTO) 2.4 % (20.0-44.0); MEAN CORPUSCULAR HEMOGLOBIN 28 PG (26.0-33.0); MEAN CORPUSCULAR HGB CONC 33 g/dl (31.0-36.0); MEAN CORPUSCULAR VOLUME 84 fL (80-96); MONOCYTES # (AUTO) 0.6 K/uL (0.1-1.30); MONOCYTES % (AUTO) 2.3 % (2.0-12.0); NEUTROPHILS % (AUTO) 94.3 % (43.0-81.0); PLATELET COUNT (AUTO) 311 K/uL (150-450); RED BLOOD CELL COUNT(AUTO) 5.18 MIL/uL (4.5-6.0); RED CELL DISTRIBUTION WIDTH 14.6 % (11.5-15.0); WHITE BLOOD COUNT (AUTO) 24.4 K/uL (4.3-11.0)
[2023-07-03 22:31] LABS: INR 1.29 (0.91-1.10); PARTIAL THROMBOPLASTIN TIME 31.1 SEC (24.3-34.3); PROTHROMBIN TIME 13.4 SECS (9.2-11.1)
[2023-07-03] MEDS ORDERED: ACETAMINOPHEN ES 500 MG TABLET ONE (22:33)
[2023-07-03] MEDS ORDERED: VANCOMYCIN 1 GM /D5W 250 ML PB IV ONE (22:33)
[2023-07-03] MEDS: ACETAMINOPHEN 325 MG TABLET MC ONE (22:35)
[2023-07-03] MEDS: VANCOMYCIN 1 GM in IV D5W 250 ML IV ONE (22:35)
[2023-07-03] MEDS: IV NS 0.9% 1,000 ML BAG IV ONE (22:35)
[2023-07-03 22:45] LABS: ALANINE AMINOTRANSFERASE 40 U/L (12-78); ALKALINE PHOSPHATASE 108 U/L (46-116); ASPARTATE AMINOTRANSFERASE 23 U/L (15-37); BILIRUBIN,DIRECT 0.1 mg/dL (0.0-0.2); BILIRUBIN,TOTAL 0.4 mg/dL (0.2-1.0); CALCIUM, SERUM 8.7 mg/dL (8.5-10.1); CARBON DIOXIDE 28 mmol/L (21-32); CHLORIDE 103 mmol/L (98-107); CREATININE 0.8 mg/dL (0.6-1.3); GLUCOSE 143 mg/dL (74-106); SODIUM SERUM 138 mmol/L (136-145); TOTAL PROTEIN, SERUM 7.6 g/dL (6.4-8.2); UREA NITROGEN, BLOOD 12 mg/dL (7-18)
[2023-07-03 22:48] LABS: LACTIC ACID 2.5 mmol/L (0.4-2.0)
[2023-07-03] MEDS ORDERED: KETOROLAC TROMETHAMINE 15 MG/ML VIAL ONE (22:50)
[2023-07-03] MEDS ORDERED: ACETAMINOPHEN 325 MG TABLET ONE (22:50)
[2023-07-03] MEDS ORDERED: PIPERACI/TAZO 3.375GM/D5W 50ML PB IV ONE (22:50)
[2023-07-03] MEDS: KETOROLAC TROMETHAMINE 15 MG/ML VIAL IV ONE (22:51)
[2023-07-03] MEDS: PIPERACILLIN /TAZOBACTAM 4.5 G in IV D5W 50 ML IV ONE (22:51)
[2023-07-03] MEDS: ACETAMINOPHEN 325 MG TABLET PO ONE (22:51)
[2023-07-03 23:26] LABS: APPEARANCE,URINE CLEAR (CLEAR); BILIRUBIN,URINE NEGATIVE (NEGATIVE); BLOOD, URINE NEGATIVE Ery/uL (NEGATIVE); COLOR,URINE YELLOW (YELLOW); KETONES,URINE NEGATIVE (NEGATIVE); LEUKOCYTE ESTERASE ,URINE NEGATIVE (NEGATIVE); NITRITE, URINE NEGATIVE (NEGATIVE); PROTEIN,URINE TRACE mg/dl (NEGATIVE); UGLUCOSE NEGATIVE (NEGATIVE); UROBILINOGEN,URINE 0.2 EU/dL (0.2)
[2023-07-04 06:00] VITALS: BP 114/64; TEMP 103.1; O2SAT 95
[2023-07-04] MEDS: IV NS 0.9% 1,000 ML IV ONE (06:04)
[2023-07-04] MEDS ORDERED: ONDANSETRON HCL/PF 4 MG/2 ML VIAL IVP PRN (06:30)
[2023-07-04] MEDS ORDERED: MAGNESIUM HYDROXIDE 30 ML UDC PO PRN (06:30)
[2023-07-04] MEDS ORDERED: MAG HYDROX/AL HYDROX/SIMETH 30 ML UDC PO PRN (06:30)
[2023-07-04] MEDS: IV NS 0.9% 1,000 ML IV PRN (07:10)
[2023-07-04] MEDS: ACETAMINOPHEN 325 MG TABLET PO PRN (07:25)
[2023-07-04 07:30] VITALS: BP 117/81; TEMP 103.1; O2SAT 94
[2023-07-04] MEDS: VANCOMYCIN HCL 1.25 GM in IV D5W 250 ML IV SCH (08:08)
[2023-07-04] MEDS: PIPERACILLIN /TAZOBACTAM 3.375 G in IV D5W 100 ML IV SCH (08:09)
[2023-07-04] MEDS: ENOXAPARIN SODIUM 40 MG/0.4 ML DISP.SYRIN SQ SCH (08:27)
[2023-07-04] MEDS ORDERED: CHOL100043 GT (09:20)
[2023-07-04 10:55] LABS: CREATININE 0.7 mg/dL (0.6-1.3)
[2023-07-04] MEDS: JEVITY 1.2 CAL 1,000 ML BOTTLE GT PRN (11:52)
[2023-07-04] MEDS ORDERED: NA PHOS,M-B/NA PHOS,DI-BA 1 EA ENEMA RC PRN (15:30)
[2023-07-04] MEDS ORDERED: MAGNESIUM HYDROXIDE 30 ML UDC GT PRN (15:30)
[2023-07-04 16:00] VITALS: BP 105/69; TEMP 102.7; O2SAT 96
[2023-07-04] MEDS: LamoTRIgine 100 MG TABLET PO SCH (16:39)
[2023-07-04] MEDS: DOCUSATE SODIUM LIQ 100 MG/10 ML UDC GT SCH (16:39)
[2023-07-04 17:06] LABS: ADD URINE CULTURE NO; BACTERIA,URINE Rare /HPF (None Seen); RBC,URINE 0-2 /HPF (0-2); SQUAMOUS EPITHELIAL CELL,UR Few /HPF (None Seen); WBC,URINE NONE SEEN /HPF (0-3)
[2023-07-04 17:07] LABS: URIC ACID CRYSTALS,URINE Few /HPF (None Seen)
[2023-07-04 20:00] VITALS: BP 136/89; TEMP 102.9; O2SAT 95
[2023-07-04] MEDS: LEVETIRACETAM SOL (5 ML) 100 MG/ML UDC GT SCH (21:58)
[2023-07-05] VITALS (9 sets, daily range): BP systolic 96–200; BP diastolic 57–115; TEMP 98.2–103.2; O2SAT 93–100
[2023-07-05] MEDS: ACETAMINOPHEN 650 MG/SUPP.RECT RC ONE ×2 (02:22→02:35)
[2023-07-05] MEDS: MEPERIDINE25 MG SYR 25 MG/ML VIAL IM STA (02:23)
[2023-07-05] MEDS ORDERED: IBUPROFEN SUSP 100 MG/5 ML UDC PO PRN (02:30)
[2023-07-05] MEDS: IV NS 0.9% 1,000 ML IV ONE (02:30)
[2023-07-05 02:59] LABS: BASOPHILS # (AUTO) 0.1 K/uL (0.0-0.2); BASOPHILS % (AUTO) 0.7 % (0.0-2.0); EOSINOPHILS # (AUTO) 0.1 K/uL (0.0-0.7); EOSINOPHILS % (AUTO) 0.3 % (0.0-6.0); HEMATOCRIT 41 % (39-51); HEMOGLOBIN 13.3 g/dL (13.5-17.5); LYMPHOCYTES % (AUTO) 4.8 % (20.0-44.0); MEAN CORPUSCULAR HEMOGLOBIN 28 PG (26.0-33.0); MEAN CORPUSCULAR HGB CONC 33 g/dl (31.0-36.0); MEAN CORPUSCULAR VOLUME 85 fL (80-96); MONOCYTES # (AUTO) 1.4 K/uL (0.1-1.30); MONOCYTES % (AUTO) 7.1 % (2.0-12.0); NEUTROPHILS # (AUTO) 17.5 K/uL (1.8-8.9); NEUTROPHILS % (AUTO) 87.1 % (43.0-81.0); PLATELET COUNT (AUTO) 230 K/uL (150-450); RED CELL DISTRIBUTION WIDTH 14.8 % (11.5-15.0); WHITE BLOOD COUNT (AUTO) 20.1 K/uL (4.3-11.0)
[2023-07-05 03:23] LABS: CALCIUM, SERUM 7.6 mg/dL (8.5-10.1); CREATININE 1.4 mg/dL (0.6-1.3); MAGNESIUM 1.4 mg/dL (1.8-2.4); PHOSPHORUS 1.2 mg/dL (2.5-4.9); POTASSIUM 3.7 mmol/L (3.5-5.1)
[2023-07-05] MEDS: LORAZEPAM INJ 2 MG/ML VIAL IV ONE (04:07)
[2023-07-05] MEDS: METOPROLOL TARTRATE INJ 5 MG/5 ML AMPUL IVP PRN (04:55)
[2023-07-05 06:44] LABS: LYMPHOCYTES % (MANUAL) 6 % (16-48); MONOCYTES % (MANUAL) 12 % (0-11.0); NEUTROPHILS % (MANUAL) 82 (42-76)
[2023-07-05 06:45] LABS: PLATELET ESTIMATE ADEQUATE
[2023-07-05 07:56] LABS: BASOPHILS % (AUTO) 0.1 % (0.0-2.0); HEMATOCRIT 41 % (39-51); HEMOGLOBIN 13.1 g/dL (13.5-17.5); LYMPHOCYTES # (AUTO) 0.6 K/uL (0.8-4.8); LYMPHOCYTES % (AUTO) 2.6 % (20.0-44.0); MEAN CORPUSCULAR HEMOGLOBIN 28 PG (26.0-33.0); MEAN CORPUSCULAR HGB CONC 32 g/dl (31.0-36.0); MEAN CORPUSCULAR VOLUME 86 fL (80-96); MONOCYTES # (AUTO) 0.9 K/uL (0.1-1.30); MONOCYTES % (AUTO) 4.4 % (2.0-12.0); NEUTROPHILS # (AUTO) 19.6 K/uL (1.8-8.9); NEUTROPHILS % (AUTO) 92.9 % (43.0-81.0); PLATELET COUNT (AUTO) 184 K/uL (150-450); RED BLOOD CELL COUNT(AUTO) 4.77 MIL/uL (4.5-6.0); RED CELL DISTRIBUTION WIDTH 14.8 % (11.5-15.0); WHITE BLOOD COUNT (AUTO) 21.2 K/uL (4.3-11.0)
[2023-07-05 09:15] LABS: CALCIUM, SERUM 7.7 mg/dL (8.5-10.1); CREATININE 1.4 mg/dL (0.6-1.3); MAGNESIUM 1.8 mg/dL (1.8-2.4); PHOSPHORUS 1.1 mg/dL (2.5-4.9); POTASSIUM 3.7 mmol/L (3.5-5.1)
[2023-07-05] MEDS: CHOLECALCIFEROL 1,000 UNIT TABLET (VIT D3) GT SCH (09:38)
[2023-07-05] MEDS: VANCOMYCIN 1 GM in IV D5W 250ml IV SCH (09:40)
[2023-07-05] MEDS: TWOCAL HN 1,000 ML LIQUID GT PRN (09:51)
[2023-07-05] MEDS: NEUTRA PHOS 1 POWD.PACKET PO SCH (11:50)
[2023-07-05 12:09] LABS: BAND % (MANUAL) 6 % (0.0-5.0); LYMPHOCYTES % (MANUAL) 4 % (16-48); MONOCYTES % (MANUAL) 1 % (0-11.0); NEUTROPHILS % (MANUAL) 89 (42-76); PLATELET ESTIMATE ADEQUATE
[2023-07-05] MEDS: MAGNESIUM OXIDE 400 MG TABLET PO SCH (12:32)
[2023-07-06] VITALS (7 sets, daily range): BP systolic 103–134; BP diastolic 70–88; TEMP 98.2–103; O2SAT 98–100
[2023-07-06 09:35] LABS: BASOPHILS % (AUTO) 0.1 % (0.0-2.0); EOSINOPHILS % (AUTO) 0.1 % (0.0-6.0); HEMATOCRIT 40 % (39-51); HEMOGLOBIN 13.2 g/dL (13.5-17.5); LYMPHOCYTES # (AUTO) 1.1 K/uL (0.8-4.8); LYMPHOCYTES % (AUTO) 8.6 % (20.0-44.0); MEAN CORPUSCULAR HEMOGLOBIN 28 PG (26.0-33.0); MEAN CORPUSCULAR HGB CONC 33 g/dl (31.0-36.0); MEAN CORPUSCULAR VOLUME 84 fL (80-96); MONOCYTES # (AUTO) 0.9 K/uL (0.1-1.30); MONOCYTES % (AUTO) 7.1 % (2.0-12.0); NEUTROPHILS # (AUTO) 10.5 K/uL (1.8-8.9); NEUTROPHILS % (AUTO) 84.1 % (43.0-81.0); PLATELET COUNT (AUTO) 164 K/uL (150-450); RED BLOOD CELL COUNT(AUTO) 4.76 MIL/uL (4.5-6.0); WHITE BLOOD COUNT (AUTO) 12.5 K/uL (4.3-11.0)
[2023-07-06 09:54] LABS: ALBUMIN 1.9 g/dL (3.4-5.0); BILIRUBIN,DIRECT 0.3 mg/dL (0.0-0.2); BILIRUBIN,TOTAL 0.5 mg/dL (0.2-1.0); TOTAL PROTEIN, SERUM 6.3 g/dL (6.4-8.2)
[2023-07-06 10:57] LABS: CALCIUM, SERUM 7.7 mg/dL (8.5-10.1); PHOSPHORUS 1.4 mg/dL (2.5-4.9); POTASSIUM 3.3 mmol/L (3.5-5.1)
[2023-07-06 11:16] LABS: MAGNESIUM 2.2 mg/dL (1.8-2.4)
[2023-07-06] MEDS: NEUTRA PHOS 1 POWD.PACKET NG ONE (16:03)
[2023-07-06] MEDS ORDERED: VANCOMYCIN 750 MG in IV D5W 250 ML IV SCH (21:00)
[2023-07-07] VITALS: BP 117/59; TEMP 98.3; O2SAT 100
[2023-07-07 04:00] VITALS: BP 143/93; TEMP 100.1; O2SAT 97
[2023-07-07 05:38] VITALS: BP 143/93; TEMP 100.1; O2SAT 100
[2023-07-07 07:52] LABS: BASOPHILS % (AUTO) 0.1 % (0.0-2.0); EOSINOPHILS # (AUTO) 0.1 K/uL (0.0-0.7); EOSINOPHILS % (AUTO) 0.4 % (0.0-6.0); HEMATOCRIT 38 % (39-51); HEMOGLOBIN 12.7 g/dL (13.5-17.5); LYMPHOCYTES # (AUTO) 0.8 K/uL (0.8-4.8); MEAN CORPUSCULAR HEMOGLOBIN 28 PG (26.0-33.0); MEAN CORPUSCULAR HGB CONC 33 g/dl (31.0-36.0); MEAN CORPUSCULAR VOLUME 83 fL (80-96); MONOCYTES # (AUTO) 1.2 K/uL (0.1-1.30); MONOCYTES % (AUTO) 9.4 % (2.0-12.0); NEUTROPHILS # (AUTO) 10.8 K/uL (1.8-8.9); NEUTROPHILS % (AUTO) 84.1 % (43.0-81.0); PLATELET COUNT (AUTO) 170 K/uL (150-450); RED BLOOD CELL COUNT(AUTO) 4.61 MIL/uL (4.5-6.0); RED CELL DISTRIBUTION WIDTH 15.1 % (11.5-15.0); WHITE BLOOD COUNT (AUTO) 12.8 K/uL (4.3-11.0)
[2023-07-07 09:08] LABS: CREATININE 2.2 mg/dL (0.6-1.3); MAGNESIUM 2.3 mg/dL (1.8-2.4); PHOSPHORUS 1.3 mg/dL (2.5-4.9); POTASSIUM 3.3 mmol/L (3.5-5.1)
[2023-07-07 09:16] LABS: CALCIUM, SERUM 8.1 mg/dL (8.5-10.1)
[2023-07-07] MEDS: POTASSIUM CHLORIDE 20 MEQ TAB.PRT.SR PO SCH (10:40)
[2023-07-07 10:56] VITALS: O2SAT 96
[2023-07-07] MEDS ORDERED: MAGNESIUM HYDROXIDE 30 ML UDC GT PRN (16:33)
[2023-07-07] MEDS ORDERED: MAG HYDROX/AL HYDROX/SIMETH 30 ML UDC GT PRN (16:33)
[2023-07-07] MEDS ORDERED: IBUPROFEN SUSP 100 MG/5 ML UDC GT PRN (16:34)
[2023-07-07] MEDS: NEUTRA PHOS 1 POWD.PACKET GT ONE (16:38)
[2023-07-07] MEDS: LamoTRIgine 100 MG TABLET GT SCH (16:39)
[2023-07-07 20:00] VITALS: BP 126/78; TEMP 98.3; O2SAT 96
[2023-07-08] VITALS: BP 135/91; TEMP 98.4; O2SAT 99
[2023-07-08 05:02] VITALS: BP 143/83; TEMP 100; O2SAT 95
[2023-07-08] MEDS: ACETAMINOPHEN 650 MG/20.3 ML UDC GT PRN (05:41)
[2023-07-08 06:53] VITALS: O2SAT 96
[2023-07-08 07:00] VITALS: BP 112/70; TEMP 99.1; O2SAT 99
[2023-07-08 07:22] LABS: BASOPHILS % (AUTO) 0.1 % (0.0-2.0); EOSINOPHILS # (AUTO) 0.1 K/uL (0.0-0.7); EOSINOPHILS % (AUTO) 0.5 % (0.0-6.0); HEMATOCRIT 39 % (39-51); HEMOGLOBIN 12.9 g/dL (13.5-17.5); LYMPHOCYTES # (AUTO) 1.1 K/uL (0.8-4.8); LYMPHOCYTES % (AUTO) 8.4 % (20.0-44.0); MEAN CORPUSCULAR HEMOGLOBIN 28 PG (26.0-33.0); MEAN CORPUSCULAR HGB CONC 33 g/dl (31.0-36.0); MEAN CORPUSCULAR VOLUME 83 fL (80-96); MONOCYTES # (AUTO) 1.9 K/uL (0.1-1.30); MONOCYTES % (AUTO) 14.2 % (2.0-12.0); NEUTROPHILS # (AUTO) 10.4 K/uL (1.8-8.9); NEUTROPHILS % (AUTO) 76.8 % (43.0-81.0); PLATELET COUNT (AUTO) 168 K/uL (150-450); RED BLOOD CELL COUNT(AUTO) 4.69 MIL/uL (4.5-6.0); RED CELL DISTRIBUTION WIDTH 15.6 % (11.5-15.0); WHITE BLOOD COUNT (AUTO) 13.5 K/uL (4.3-11.0)
[2023-07-08 08:14] LABS: ALBUMIN 1.7 g/dL (3.4-5.0); BILIRUBIN,TOTAL 0.6 mg/dL (0.2-1.0); CREATININE 2.2 mg/dL (0.6-1.3); MAGNESIUM 2.3 mg/dL (1.8-2.4); PHOSPHORUS 1.5 mg/dL (2.5-4.9); POTASSIUM 4.3 mmol/L (3.5-5.1); TOTAL PROTEIN, SERUM 6.3 g/dL (6.4-8.2)
[2023-07-08] MEDS: NEUTRA PHOS 1 POWD.PACKET PO ONE (13:33)
[2023-07-08 16:00] VITALS: BP 122/77; TEMP 99.6; O2SAT 98
[2023-07-08] MEDS ORDERED: Sodium Phosphate 15 MMOL in IV NS 0.9% 245 ML IV SCH (17:00)
[2023-07-08] MEDS: NEUTRA PHOS 1 POWD.PACKET GT ONE (17:26)
[2023-07-08 21:43] VITALS: BP 121/90; TEMP 99.1; O2SAT 99
[2023-07-09 07:00] VITALS: BP 121/51; TEMP 98.4; O2SAT 97
[2023-07-09 10:35] LABS: EOSINOPHILS # (AUTO) 0.3 K/uL (0.0-0.7); HEMATOCRIT 43 % (39-51); HEMOGLOBIN 13.7 g/dL (13.5-17.5); LYMPHOCYTES # (AUTO) 1.6 K/uL (0.8-4.8); LYMPHOCYTES % (AUTO) 9.5 % (20.0-44.0); MEAN CORPUSCULAR HEMOGLOBIN 27 PG (26.0-33.0); MEAN CORPUSCULAR HGB CONC 32 g/dl (31.0-36.0); MEAN CORPUSCULAR VOLUME 85 fL (80-96); MONOCYTES # (AUTO) 2.6 K/uL (0.1-1.30); MONOCYTES % (AUTO) 15.8 % (2.0-12.0); NEUTROPHILS # (AUTO) 12.1 K/uL (1.8-8.9); NEUTROPHILS % (AUTO) 72.7 % (43.0-81.0); PLATELET COUNT (AUTO) 185 K/uL (150-450); RED BLOOD CELL COUNT(AUTO) 5.04 MIL/uL (4.5-6.0); RED CELL DISTRIBUTION WIDTH 16.7 % (11.5-15.0); WHITE BLOOD COUNT (AUTO) 16.7 K/uL (4.3-11.0)
[2023-07-09 11:08] LABS: CALCIUM, SERUM 8.4 mg/dL (8.5-10.1); MAGNESIUM 2.5 mg/dL (1.8-2.4); PHOSPHORUS 2.9 mg/dL (2.5-4.9); POTASSIUM 5.1 mmol/L (3.5-5.1)
[2023-07-09 12:01] LABS: BAND % (MANUAL) 1 % (0.0-5.0); EOSINOPHILS % (MANUAL) 3 % (0-4); LYMPHOCYTES % (MANUAL) 14 % (16-48); MONOCYTES % (MANUAL) 10 % (0-11.0); MYELOCYTES % 1 % (0-0); NEUTROPHILS % (MANUAL) 71 (42-76); PLATELET ESTIMATE ADEQUATE
[2023-07-09 16:00] VITALS: BP 126/85; TEMP 98.4; O2SAT 97
[2023-07-09 20:00] VITALS: BP 117/80; TEMP 98.7; O2SAT 95
[2023-07-10 06:03] VITALS: O2SAT 99
[2023-07-10 07:00] VITALS: BP 132/81; TEMP 98; O2SAT 95
[2023-07-10 07:27] LABS: BASOPHILS % (AUTO) 0.2 % (0.0-2.0); EOSINOPHILS # (AUTO) 0.5 K/uL (0.0-0.7); EOSINOPHILS % (AUTO) 2.6 % (0.0-6.0); HEMATOCRIT 37 % (39-51); HEMOGLOBIN 12.1 g/dL (13.5-17.5); LYMPHOCYTES # (AUTO) 1.4 K/uL (0.8-4.8); LYMPHOCYTES % (AUTO) 7.4 % (20.0-44.0); MEAN CORPUSCULAR HEMOGLOBIN 27 PG (26.0-33.0); MEAN CORPUSCULAR HGB CONC 33 g/dl (31.0-36.0); MEAN CORPUSCULAR VOLUME 83 fL (80-96); MONOCYTES # (AUTO) 2.5 K/uL (0.1-1.30); MONOCYTES % (AUTO) 13.1 % (2.0-12.0); NEUTROPHILS # (AUTO) 14.7 K/uL (1.8-8.9); NEUTROPHILS % (AUTO) 76.7 % (43.0-81.0); PLATELET COUNT (AUTO) 273 K/uL (150-450); RED BLOOD CELL COUNT(AUTO) 4.44 MIL/uL (4.5-6.0); RED CELL DISTRIBUTION WIDTH 15.7 % (11.5-15.0); WHITE BLOOD COUNT (AUTO) 19.2 K/uL (4.3-11.0)
[2023-07-10 08:01] LABS: CALCIUM, SERUM 8.9 mg/dL (8.5-10.1); CREATININE 1.9 mg/dL (0.6-1.3); MAGNESIUM 2.7 mg/dL (1.8-2.4); PHOSPHORUS 3.7 mg/dL (2.5-4.9); POTASSIUM 4.5 mmol/L (3.5-5.1)
[2023-07-10 12:59] LABS: APPEARANCE,URINE CLEAR (CLEAR); BILIRUBIN,URINE NEGATIVE (NEGATIVE); BLOOD, URINE 1+ Ery/uL (NEGATIVE); COLOR,URINE YELLOW (YELLOW); KETONES,URINE NEGATIVE (NEGATIVE); LEUKOCYTE ESTERASE ,URINE NEGATIVE (NEGATIVE); NITRITE, URINE NEGATIVE (NEGATIVE); PROTEIN,URINE NEGATIVE (NEGATIVE); UGLUCOSE NEGATIVE (NEGATIVE); UROBILINOGEN,URINE 0.2 EU/dL (0.2)
[2023-07-10 13:07] LABS: CREATININE, URINE 37.9 MG/DL (30.0-125.0); URINE TOTAL PROTEIN 27.8 mg/dL (0-11.9)
[2023-07-10 13:20] LABS: RBC,URINE 0-2 /HPF (0-2)
[2023-07-10 13:21] LABS: ADD URINE CULTURE NO; BACTERIA,URINE None seen /HPF (None Seen); HYALINE CASTS, URINE Few /LPF (None Seen); SQUAMOUS EPITHELIAL CELL,UR None Seen /HPF (None Seen); YEAST,URINE None Seen /HPF (None Seen)
[2023-07-10 13:49] LABS: EOSINOPHIL,URINE None Seen
[2023-07-10 16:00] VITALS: BP 117/76; TEMP 98; O2SAT 96
[2023-07-10 20:00] VITALS: BP 114/91; TEMP 99.1; O2SAT 99
[2023-07-10 20:41] LABS: HIV-1 p24 ANTIGEN NON REACTIVE (NONREACTIVE); HIV-1/2 ANTIBODY NON REACTIVE (NONREACTIVE)
[2023-07-11 05:40] VITALS: O2SAT 99
[2023-07-11 07:30] VITALS: BP 116/92; TEMP 97.9; O2SAT 100
[2023-07-11 14:27] LABS: BASOPHILS % (AUTO) 0.1 % (0.0-2.0); EOSINOPHILS # (AUTO) 0.5 K/uL (0.0-0.7); EOSINOPHILS % (AUTO) 3.3 % (0.0-6.0); HEMATOCRIT 39 % (39-51); HEMOGLOBIN 12.9 g/dL (13.5-17.5); LYMPHOCYTES # (AUTO) 1.7 K/uL (0.8-4.8); LYMPHOCYTES % (AUTO) 11.4 % (20.0-44.0); MEAN CORPUSCULAR HEMOGLOBIN 28 PG (26.0-33.0); MEAN CORPUSCULAR HGB CONC 33 g/dl (31.0-36.0); MEAN CORPUSCULAR VOLUME 84 fL (80-96); MONOCYTES # (AUTO) 1.6 K/uL (0.1-1.30); MONOCYTES % (AUTO) 10.7 % (2.0-12.0); NEUTROPHILS # (AUTO) 10.9 K/uL (1.8-8.9); NEUTROPHILS % (AUTO) 74.5 % (43.0-81.0); PLATELET COUNT (AUTO) 383 K/uL (150-450); RED BLOOD CELL COUNT(AUTO) 4.68 MIL/uL (4.5-6.0); RED CELL DISTRIBUTION WIDTH 15.8 % (11.5-15.0); WHITE BLOOD COUNT (AUTO) 14.6 K/uL (4.3-11.0)
[2023-07-11 14:54] LABS: CALCIUM, SERUM 8.8 mg/dL (8.5-10.1); MAGNESIUM 2.7 mg/dL (1.8-2.4); PHOSPHORUS 4.2 mg/dL (2.5-4.9); POTASSIUM 5.2 mmol/L (3.5-5.1)
[2023-07-11 16:00] VITALS: BP 142/85; TEMP 97.9; O2SAT 97
[2023-07-11 20:00] VITALS: BP 111/83; TEMP 98; O2SAT 100
[2023-07-12 05:04] VITALS: O2SAT 96
[2023-07-12 07:46] LABS: BASOPHILS % (AUTO) 0.1 % (0.0-2.0); EOSINOPHILS # (AUTO) 0.7 K/uL (0.0-0.7); HEMATOCRIT 38 % (39-51); HEMOGLOBIN 12.4 g/dL (13.5-17.5); LYMPHOCYTES # (AUTO) 1.6 K/uL (0.8-4.8); LYMPHOCYTES % (AUTO) 9.7 % (20.0-44.0); MEAN CORPUSCULAR HEMOGLOBIN 28 PG (26.0-33.0); MEAN CORPUSCULAR HGB CONC 33 g/dl (31.0-36.0); MEAN CORPUSCULAR VOLUME 84 fL (80-96); MONOCYTES % (AUTO) 11.9 % (2.0-12.0); NEUTROPHILS # (AUTO) 12.6 K/uL (1.8-8.9); NEUTROPHILS % (AUTO) 74.3 % (43.0-81.0); PLATELET COUNT (AUTO) 427 K/uL (150-450); RED BLOOD CELL COUNT(AUTO) 4.52 MIL/uL (4.5-6.0); RED CELL DISTRIBUTION WIDTH 15.7 % (11.5-15.0); WHITE BLOOD COUNT (AUTO) 16.9 K/uL (4.3-11.0)
[2023-07-12 08:00] VITALS: BP 111/88; TEMP 98.4; O2SAT 99
[2023-07-12 08:20] LABS: CALCIUM, SERUM 9.1 mg/dL (8.5-10.1); PHOSPHORUS 4.2 mg/dL (2.5-4.9); POTASSIUM 4.8 mmol/L (3.5-5.1)
[2023-07-12 08:33] VITALS: O2SAT 99
[2023-07-12 16:00] VITALS: BP 126/86; TEMP 99.5; O2SAT 96
[2023-07-12 20:00] VITALS: BP 115/60; TEMP 101.1; O2SAT 95
[2023-07-12] MEDS: MEROPENEM 500MG/NS 50 ML PB IV ONE ×2 (23:11→23:27)
[2023-07-12] MEDS: MEROPENEM 1 G in IV NS 0.9% 100 ML IV ONE (23:34)
[2023-07-12] MEDS: VANCOMYCIN 1 GM /D5W 250 ML PB IV ONE (23:49)
[2023-07-13] MEDS: VANCOMYCIN 1 GM in IV D5W 250ml IV ONE (01:10)
[2023-07-13 02:07] LABS: HEPATITIS B SURFACE AB Non Reactive (.); HEPATITIS Be AG Negative (Negative)
[2023-07-13 05:13] LABS: HEPATITIS Be AB Non Reactive (Negative)
[2023-07-13 07:00] VITALS: BP 128/76; TEMP 99.1
[2023-07-13 07:53] LABS: BASOPHILS # (AUTO) 0.1 K/uL (0.0-0.2); BASOPHILS % (AUTO) 0.2 % (0.0-2.0); EOSINOPHILS # (AUTO) 0.4 K/uL (0.0-0.7); EOSINOPHILS % (AUTO) 1.8 % (0.0-6.0); HEMATOCRIT 34 % (39-51); HEMOGLOBIN 10.9 g/dL (13.5-17.5); LYMPHOCYTES # (AUTO) 1.7 K/uL (0.8-4.8); LYMPHOCYTES % (AUTO) 7.6 % (20.0-44.0); MEAN CORPUSCULAR HEMOGLOBIN 27 PG (26.0-33.0); MEAN CORPUSCULAR HGB CONC 32 g/dl (31.0-36.0); MEAN CORPUSCULAR VOLUME 84 fL (80-96); MONOCYTES # (AUTO) 2.5 K/uL (0.1-1.30); MONOCYTES % (AUTO) 11.1 % (2.0-12.0); NEUTROPHILS % (AUTO) 79.3 % (43.0-81.0); PLATELET COUNT (AUTO) 523 K/uL (150-450); RED BLOOD CELL COUNT(AUTO) 4.03 MIL/uL (4.5-6.0); RED CELL DISTRIBUTION WIDTH 15.4 % (11.5-15.0); WHITE BLOOD COUNT (AUTO) 22.8 K/uL (4.3-11.0)
[2023-07-13 07:54] LABS: CALCIUM, SERUM 8.4 mg/dL (8.5-10.1); CREATININE 2.3 mg/dL (0.6-1.3); PHOSPHORUS 3.9 mg/dL (2.5-4.9); POTASSIUM 4.6 mmol/L (3.5-5.1)
[2023-07-13 08:31] VITALS: O2SAT 95
[2023-07-13 11:30] VITALS: BP 123/46; TEMP 100.6; TEMP 106; O2SAT 94
[2023-07-13] MEDS: MEROPENEM 1 G in IV NS 0.9% 100 ML IV SCH (13:11)
[2023-07-13] MEDS: VANCOMYCIN 750 MG in IV D5W 250 ML IV SCH (13:54)
[2023-07-13] MEDS: IV NS 0.9% 1,000 ML BAG IV ONE (15:16)
[2023-07-13 16:00] VITALS: BP 114/75; TEMP 98.2; O2SAT 96
[2023-07-13 17:11] LABS: HEPATITIS B CORE AB, TOTAL Negative (Negative)
[2023-07-14] MEDS ORDERED: VANCOMYCIN 500 MG in IV D5W 100ml IV SCH (01:00)
[2023-07-14 02:18] VITALS: O2SAT 97
[2023-07-14 07:00] VITALS: BP 105/84; TEMP 98.6; O2SAT 97
[2023-07-14 08:24] VITALS: O2SAT 97
[2023-07-14 08:37] LABS: BASOPHILS # (AUTO) 0.1 K/uL (0.0-0.2); BASOPHILS % (AUTO) 0.3 % (0.0-2.0); EOSINOPHILS # (AUTO) 0.5 K/uL (0.0-0.7); EOSINOPHILS % (AUTO) 2.1 % (0.0-6.0); HEMATOCRIT 32 % (39-51); HEMOGLOBIN 10.5 g/dL (13.5-17.5); LYMPHOCYTES # (AUTO) 2.1 K/uL (0.8-4.8); LYMPHOCYTES % (AUTO) 8.3 % (20.0-44.0); MEAN CORPUSCULAR HEMOGLOBIN 27 PG (26.0-33.0); MEAN CORPUSCULAR HGB CONC 33 g/dl (31.0-36.0); MEAN CORPUSCULAR VOLUME 84 fL (80-96); MONOCYTES # (AUTO) 2.3 K/uL (0.1-1.30); NEUTROPHILS % (AUTO) 80.3 % (43.0-81.0); PLATELET COUNT (AUTO) 588 K/uL (150-450); RED BLOOD CELL COUNT(AUTO) 3.84 MIL/uL (4.5-6.0); RED CELL DISTRIBUTION WIDTH 15.6 % (11.5-15.0)
[2023-07-14 09:01] LABS: CALCIUM, SERUM 8.8 mg/dL (8.5-10.1); CREATININE 2.1 mg/dL (0.6-1.3); MAGNESIUM 2.7 mg/dL (1.8-2.4); PHOSPHORUS 3.6 mg/dL (2.5-4.9); POTASSIUM 4.5 mmol/L (3.5-5.1)
[2023-07-14] MEDS ORDERED: IV D5/0.45 NACL 500 ML IV PRN (09:30)
[2023-07-14] MEDS: IV D5W 1,000 ML IV ONE (11:27)
[2023-07-14 16:00] VITALS: BP 105/75; TEMP 98.4; O2SAT 96
[2023-07-14] MEDS: IV 1/2NS 1000 ML 500 ML IV ONE (18:08)
[2023-07-14 20:00] VITALS: BP 109/70; TEMP 99.5; O2SAT 97
[2023-07-14] MEDS: METOPROLOL TARTRATE INJ 5 MG/5 ML AMPUL IVP ONE (22:40)
[2023-07-15] VITALS (9 sets, daily range): BP systolic 100–130; BP diastolic 68–80; TEMP 98.1–98.4; O2SAT 96–100
[2023-07-15] MEDS: VANCOMYCIN 500 MG in IV D5W 100ml IV SCH (00:59)
[2023-07-15 06:32] LABS: BASOPHILS # (AUTO) 0.1 K/uL (0.0-0.2); BASOPHILS % (AUTO) 0.2 % (0.0-2.0); EOSINOPHILS # (AUTO) 0.5 K/uL (0.0-0.7); EOSINOPHILS % (AUTO) 1.9 % (0.0-6.0); HEMATOCRIT 30 % (39-51); HEMOGLOBIN 9.8 g/dL (13.5-17.5); LYMPHOCYTES # (AUTO) 2.3 K/uL (0.8-4.8); MEAN CORPUSCULAR HEMOGLOBIN 28 PG (26.0-33.0); MEAN CORPUSCULAR HGB CONC 32 g/dl (31.0-36.0); MEAN CORPUSCULAR VOLUME 86 fL (80-96); MONOCYTES # (AUTO) 2.3 K/uL (0.1-1.30); MONOCYTES % (AUTO) 8.7 % (2.0-12.0); NEUTROPHILS # (AUTO) 20.8 K/uL (1.8-8.9); NEUTROPHILS % (AUTO) 80.2 % (43.0-81.0); PLATELET COUNT (AUTO) 563 K/uL (150-450); RED BLOOD CELL COUNT(AUTO) 3.54 MIL/uL (4.5-6.0); RED CELL DISTRIBUTION WIDTH 15.6 % (11.5-15.0)
[2023-07-15 07:09] LABS: ALBUMIN 2.2 g/dL (3.4-5.0); BILIRUBIN,DIRECT 0.3 mg/dL (0.0-0.2); BILIRUBIN,TOTAL 0.4 mg/dL (0.2-1.0); CALCIUM, SERUM 8.4 mg/dL (8.5-10.1); CREATININE 2.1 mg/dL (0.6-1.3); PHOSPHORUS 3.4 mg/dL (2.5-4.9); POTASSIUM 4.3 mmol/L (3.5-5.1); TOTAL PROTEIN, SERUM 7.9 g/dL (6.4-8.2)
[2023-07-15] MEDS: LEVETIRACETAM SOL (5 ML) 100 MG/ML UDC GT SCH (08:58)
[2023-07-15] MEDS: IV D5W 1,000 ML IV PRN (09:50)
[2023-07-15] MEDS ORDERED: VANCOMYCIN 1 GM in IV D5W 250 ML IV SCH (13:00)
[2023-07-15] MEDS: LINEZOLID RTU BAG 600 MG in PREMIX 1 EA IV SCH (20:58)
[2023-07-15] MEDS ORDERED: LEVETIRACETAM (500MG) 500 MG/5 ML VIAL IV ONE (23:43)
[2023-07-16] VITALS (16 sets, daily range): BP systolic 95–146; BP diastolic 54–119; TEMP 97.5–99.5; O2SAT 96–100
[2023-07-16] MEDS: LEVETIRACETAM (500MG) 1,000 MG in IV NS 0.9% 90 ML IV SCH (00:09)
[2023-07-16 06:35] LABS: BASOPHILS % (AUTO) 0.2 % (0.0-2.0); EOSINOPHILS # (AUTO) 0.6 K/uL (0.0-0.7); EOSINOPHILS % (AUTO) 2.1 % (0.0-6.0); HEMATOCRIT 25 % (39-51); LYMPHOCYTES # (AUTO) 1.8 K/uL (0.8-4.8); LYMPHOCYTES % (AUTO) 6.9 % (20.0-44.0); MEAN CORPUSCULAR HEMOGLOBIN 28 PG (26.0-33.0); MEAN CORPUSCULAR HGB CONC 32 g/dl (31.0-36.0); MEAN CORPUSCULAR VOLUME 86 fL (80-96); MONOCYTES # (AUTO) 2.2 K/uL (0.1-1.30); MONOCYTES % (AUTO) 8.3 % (2.0-12.0); NEUTROPHILS % (AUTO) 82.5 % (43.0-81.0); PLATELET COUNT (AUTO) 516 K/uL (150-450); RED CELL DISTRIBUTION WIDTH 15.5 % (11.5-15.0); WHITE BLOOD COUNT (AUTO) 26.7 K/uL (4.3-11.0)
[2023-07-16 06:46] LABS: CALCIUM, SERUM 7.8 mg/dL (8.5-10.1); CREATININE 1.9 mg/dL (0.6-1.3); MAGNESIUM 2.4 mg/dL (1.8-2.4); PHOSPHORUS 3.1 mg/dL (2.5-4.9); POTASSIUM 3.4 mmol/L (3.5-5.1)
[2023-07-16 08:41] LABS: ALBUMIN 2.2 g/dL (3.4-5.0); BILIRUBIN,DIRECT 0.3 mg/dL (0.0-0.2); BILIRUBIN,TOTAL 0.5 mg/dL (0.2-1.0); TOTAL PROTEIN, SERUM 7.3 g/dL (6.4-8.2)
[2023-07-16] MEDS: POTASSIUM CL. PREMIX PERIPHER. 50 ML IV SCH ×2 (10:31→22:22)
[2023-07-16] MEDS ORDERED: LIDOCAINE 1%-EPI 1:100,000 20 ML VIAL ONE (17:08)
[2023-07-16] MEDS ORDERED: BUPIVACAINE 0.5 % PF 150 MG/30 ML VIAL ONE (17:08)
[2023-07-16] MEDS ORDERED: BACITRACIN ZINC OINT (15 GM) 15 GM TUBE TP ONE (17:08)
[2023-07-16] MEDS ORDERED: ANESTHESIA TRAY IN PYXIS 1 EA TRAY MC ONE (17:08)
[2023-07-16] MEDS ORDERED: FAMOTIDINE/PF INJ 20 MG/2 ML VIAL IV ONE (17:48)
[2023-07-16] MEDS ORDERED: FENTANYL PF 100MCG/2ML AMPUL ONE (17:48)
[2023-07-16] MEDS ORDERED: ROCURONIUM BROMIDE 50 MG/5 ML ONE (17:48)
[2023-07-16] MEDS ORDERED: MIDAZOLAM HCL 2 MG/2ML VIAL ONE (17:48)
[2023-07-16] MEDS ORDERED: ROPIVACAINE HCL 0.5% 5 MG/ML 30ML VIAL ONE (17:49)
[2023-07-16] MEDS ORDERED: ALBUMIN 5% 0 ML IV ONE (17:55)
[2023-07-16] MEDS ORDERED: POTASSIUM CL. PREMIX PERIPHER. 50 ML IV SCH ×2 (18:00→18:30)
[2023-07-16] MEDS ORDERED: TRANEXAMIC ACID 1,000 MG/10 ML VIAL ONE (18:54)
[2023-07-16] MEDS ORDERED: PHYTONADIONE INJ 10 MG/1 ML AMPUL ONE (18:57)
[2023-07-16] MEDS ORDERED: CALCIUM CHLORIDE 1,000 MG/10 ML DISP.SYRIN ONE (19:17)
[2023-07-16] MEDS ORDERED: GELATIN SPONGE,ABSORBABLE 1 EA SPONGE TP ONE (19:26)
[2023-07-16] MEDS ORDERED: CELLULOSE,OXIDIZED 1 EACH EACH MC ONE (20:05)
[2023-07-16] MEDS ORDERED: CELLULOSE,OXIDIZED 1 PKT EACH MC ONE (20:08)
[2023-07-16] MEDS ORDERED: THROMBIN (BOVINE) 20,000 UNITS SPRAY KIT TP ONE ×2 (20:14→20:17)
[2023-07-16] MEDS: ALBUMIN 5% 12.5 GM/250 ML BOTTLE IV ONE (20:30)
[2023-07-16 20:43] LABS: CALCIUM, SERUM 7.9 mg/dL (8.5-10.1); CREATININE 1.8 mg/dL (0.6-1.3); POTASSIUM 3.3 mmol/L (3.5-5.1)
[2023-07-16 20:45] LABS: BASOPHILS % (AUTO) 0.1 % (0.0-2.0); EOSINOPHILS # (AUTO) 0.3 K/uL (0.0-0.7); EOSINOPHILS % (AUTO) 1.7 % (0.0-6.0); LYMPHOCYTES # (AUTO) 1.9 K/uL (0.8-4.8); LYMPHOCYTES % (AUTO) 9.6 % (20.0-44.0); MEAN CORPUSCULAR HEMOGLOBIN 28 PG (26.0-33.0); MEAN CORPUSCULAR HGB CONC 33 g/dl (31.0-36.0); MEAN CORPUSCULAR VOLUME 87 fL (80-96); MONOCYTES # (AUTO) 0.9 K/uL (0.1-1.30); MONOCYTES % (AUTO) 4.9 % (2.0-12.0); NEUTROPHILS # (AUTO) 16.4 K/uL (1.8-8.9); NEUTROPHILS % (AUTO) 83.7 % (43.0-81.0); PLATELET COUNT (AUTO) 342 K/uL (150-450); RED CELL DISTRIBUTION WIDTH 15.6 % (11.5-15.0); WHITE BLOOD COUNT (AUTO) 19.5 K/uL (4.3-11.0)
[2023-07-16 20:49] LABS: ALBUMIN 2.1 g/dL (3.4-5.0); BILIRUBIN,TOTAL 0.5 mg/dL (0.2-1.0); TOTAL PROTEIN, SERUM 5.9 g/dL (6.4-8.2)
[2023-07-16 21:00] LABS: HEMOGLOBIN 5.9 g/dL (13.5-17.5)
[2023-07-16 21:03] LABS: HEMATOCRIT 18 % (39-51)
[2023-07-16] MEDS ORDERED: ALBUMIN 5% 250 ML IV ONE (21:11)
[2023-07-16] MEDS ORDERED: ALBUMIN 5% 500 ML IV ONE (21:12)
[2023-07-16] MEDS ORDERED: POTASSIUM CL. PREMIX PERIPHER. 100 ML ONE (21:29)
[2023-07-16 22:16] LABS: RED BLOOD CELL COUNT(AUTO) 2.21 MIL/uL (4.5-6.0); WHITE BLOOD COUNT (AUTO) 28.1 K/uL (4.3-11.0)
[2023-07-16 22:17] LABS: HEMATOCRIT 19 % (39-51); MEAN CORPUSCULAR HEMOGLOBIN 27 PG (26.0-33.0); MEAN CORPUSCULAR HGB CONC 31 g/dl (31.0-36.0); MEAN CORPUSCULAR VOLUME 87 fL (80-96); RED CELL DISTRIBUTION WIDTH 15.4 % (11.5-15.0)
[2023-07-16 22:18] LABS: BASOPHILS % (AUTO) 0.2 % (0.0-2.0); EOSINOPHILS # (AUTO) 0.5 K/uL (0.0-0.7); EOSINOPHILS % (AUTO) 1.7 % (0.0-6.0); LYMPHOCYTES # (AUTO) 3.4 K/uL (0.8-4.8); LYMPHOCYTES % (AUTO) 12.2 % (20.0-44.0); MONOCYTES # (AUTO) 1.6 K/uL (0.1-1.30); MONOCYTES % (AUTO) 5.5 % (2.0-12.0); NEUTROPHILS # (AUTO) 22.6 K/uL (1.8-8.9); NEUTROPHILS % (AUTO) 80.4 % (43.0-81.0); PLATELET COUNT (AUTO) 477 K/uL (150-450)
[2023-07-16] MEDS: PROPOFOL 100 ML IV PRN (22:22)
[2023-07-16 22:23] LABS: BAND % (MANUAL) 1 % (0.0-5.0); EOSINOPHILS % (MANUAL) 3 % (0-4); LYMPHOCYTES % (MANUAL) 13 % (16-48); MONOCYTES % (MANUAL) 7 % (0-11.0); NEUTROPHILS % (MANUAL) 76 (42-76); PLATELET ESTIMATE ADEQU
[2023-07-16 22:24] LABS: ANISOCYTOSIS 1+; STOMATOCYTES 1+
[2023-07-17] VITALS (108 sets, daily range): BP systolic 80–135; BP diastolic 47–97; TEMP 97.7–103.1; O2SAT 95–100
[2023-07-17 00:48] LABS: ABG BASE EXCESS -6.8 mmol/L; ABG OXYGEN SATURATION 98.8 % (92.0-98.5); ABG PCO2 31.5 mmHg (35.0-45.0); ABG PH 7.367 (7.350-7.450); ABG PO2 186.7 mmHg (75.0-100.0); ABG TOTAL HEMOGLOBIN 9.3 G/dL (13.5-18.0); AaDO2 206.5 mmHg; COHb 0.3 % (0.5-1.5); MetHb 0.5 % (0.0-1.5); PEEP,BG 5 cm H2O; SITE, ABG Right Radial
[2023-07-17] MEDS: ACETAMINOPHEN 650 MG/SUPP.RECT RC ONE (01:29)
[2023-07-17] MEDS: ACETAMINOPHEN 650 MG/SUPP.RECT RC PRN (01:32)
[2023-07-17] MEDS: NOREPINEPHRINE 8MG/250ML RTU 250 ML IV ONE (03:53)
[2023-07-17] MEDS ORDERED: NOREPINEPHRINE 8 MG in IV D5W 242 ML IV PRN (04:00)
[2023-07-17] MEDS: PHENYLEPHRINE 50 MG in IV NS 0.9% 245 ML IV PRN (04:19)
[2023-07-17] MEDS: PHENYLEPHRINE 10 MG/ML VIAL ONE (04:53)
[2023-07-17 08:04] LABS: BASOPHILS % (AUTO) 0.1 % (0.0-2.0); EOSINOPHILS % (AUTO) 0.1 % (0.0-6.0); HEMATOCRIT 24 % (39-51); HEMOGLOBIN 7.6 g/dL (13.5-17.5); LYMPHOCYTES # (AUTO) 2.1 K/uL (0.8-4.8); LYMPHOCYTES % (AUTO) 5.6 % (20.0-44.0); MEAN CORPUSCULAR HEMOGLOBIN 28 PG (26.0-33.0); MEAN CORPUSCULAR HGB CONC 32 g/dl (31.0-36.0); MEAN CORPUSCULAR VOLUME 86 fL (80-96); MONOCYTES % (AUTO) 5.1 % (2.0-12.0); NEUTROPHILS # (AUTO) 34.3 K/uL (1.8-8.9); NEUTROPHILS % (AUTO) 89.1 % (43.0-81.0); PLATELET COUNT (AUTO) 422 K/uL (150-450); RED BLOOD CELL COUNT(AUTO) 2.73 MIL/uL (4.5-6.0); RED CELL DISTRIBUTION WIDTH 14.6 % (11.5-15.0)
[2023-07-17 08:08] LABS: WHITE BLOOD COUNT (AUTO) 38.4 K/uL (4.3-11.0)
[2023-07-17 08:21] LABS: CALCIUM, SERUM 7.5 mg/dL (8.5-10.1); CREATININE 2.1 mg/dL (0.6-1.3); MAGNESIUM 1.7 mg/dL (1.8-2.4); PHOSPHORUS 3.5 mg/dL (2.5-4.9); POTASSIUM 3.9 mmol/L (3.5-5.1)
[2023-07-17 08:27] LABS: ALBUMIN 2.4 g/dL (3.4-5.0); BILIRUBIN,DIRECT 0.6 mg/dL (0.0-0.2); TOTAL PROTEIN, SERUM 6.1 g/dL (6.4-8.2)
[2023-07-17] MEDS: LEVETIRACETAM (500MG) 1,000 MG in IV NS 0.9% 90 ML IV SCH (09:06)
[2023-07-17] MEDS: Magnesium 1GM/D5W 100ML PREMIX 100 ML IV SCH (11:24)
[2023-07-17 12:11] LABS: LYMPHOCYTES % (MANUAL) 4 % (16-48); MONOCYTES % (MANUAL) 6 % (0-11.0); NEUTROPHILS % (MANUAL) 90 (42-76)
[2023-07-17 12:12] LABS: ANISOCYTOSIS 1+; PLATELET ESTIMATE ADEQUATE; STOMATOCYTES 1+
[2023-07-17] MEDS: IV D5 LR 1,000 ML IV PRN (13:52)
[2023-07-17] MEDS ORDERED: IV D5 LR 1,000 ML IV ONE (14:00)
[2023-07-18] VITALS (60 sets, daily range): BP systolic 105–163; BP diastolic 66–152; TEMP 98.5–101.4; O2SAT 95–100
[2023-07-18 05:27] LABS: EOSINOPHILS # (AUTO) 0.2 K/uL (0.0-0.7); EOSINOPHILS % (AUTO) 0.6 % (0.0-6.0); HEMATOCRIT 27 % (39-51); LYMPHOCYTES # (AUTO) 1.5 K/uL (0.8-4.8); LYMPHOCYTES % (AUTO) 4.4 % (20.0-44.0); MEAN CORPUSCULAR HEMOGLOBIN 30 PG (26.0-33.0); MEAN CORPUSCULAR HGB CONC 34 g/dl (31.0-36.0); MEAN CORPUSCULAR VOLUME 87 fL (80-96); MONOCYTES # (AUTO) 2.3 K/uL (0.1-1.30); MONOCYTES % (AUTO) 6.9 % (2.0-12.0); NEUTROPHILS # (AUTO) 29.7 K/uL (1.8-8.9); NEUTROPHILS % (AUTO) 88.1 % (43.0-81.0); PLATELET COUNT (AUTO) 271 K/uL (150-450); RED BLOOD CELL COUNT(AUTO) 3.05 MIL/uL (4.5-6.0); RED CELL DISTRIBUTION WIDTH 15.4 % (11.5-15.0)
[2023-07-18 05:29] LABS: WHITE BLOOD COUNT (AUTO) 33.8 K/uL (4.3-11.0)
[2023-07-18] MEDS: HYDROMORPHONE 1 MG/1 ML DISP.SYRIN IV PRN (05:35)
[2023-07-18 05:42] LABS: CALCIUM, SERUM 7.8 mg/dL (8.5-10.1); CREATININE 1.6 mg/dL (0.6-1.3); MAGNESIUM 2.1 mg/dL (1.8-2.4); POTASSIUM 3.1 mmol/L (3.5-5.1)
[2023-07-18 07:44] LABS: BAND % (MANUAL) 6 % (0.0-5.0); LYMPHOCYTES % (MANUAL) 2 % (16-48); MONOCYTES % (MANUAL) 6 % (0-11.0); NEUTROPHILS % (MANUAL) 86 (42-76); PLATELET ESTIMATE ADEQUATE
[2023-07-18 08:39] LABS: ABG BASE EXCESS -1.8 mmol/L; ABG OXYGEN SATURATION 97.3 % (92.0-98.5); ABG PCO2 31.3 mmHg (35.0-45.0); ABG PH 7.455 (7.350-7.450); ABG PO2 101.8 mmHg (75.0-100.0); ABG TOTAL HEMOGLOBIN 9.5 G/dL (13.5-18.0); AaDO2 111.4 mmHg; COHb 0.3 % (0.5-1.5); MetHb 0.5 % (0.0-1.5); O2Hb 96.5 % (94.0-97.0); SITE, ABG Right Radial
[2023-07-18] MEDS: POTASSIUM CL. PREMIX PERIPHER. 50 ML IV SCH (09:18)
[2023-07-18] MEDS: IV NS 0.9% 250 ML IV PRN (12:31)
[2023-07-19] VITALS (47 sets, daily range): BP systolic 90–126; BP diastolic 61–95; TEMP 98.6–100.3; O2SAT 99–100
[2023-07-19 04:50] LABS: BASOPHILS % (AUTO) 0.1 % (0.0-2.0); EOSINOPHILS # (AUTO) 0.5 K/uL (0.0-0.7); EOSINOPHILS % (AUTO) 2.3 % (0.0-6.0); HEMATOCRIT 24 % (39-51); HEMOGLOBIN 7.7 g/dL (13.5-17.5); LYMPHOCYTES # (AUTO) 1.4 K/uL (0.8-4.8); LYMPHOCYTES % (AUTO) 6.3 % (20.0-44.0); MEAN CORPUSCULAR HEMOGLOBIN 29 PG (26.0-33.0); MEAN CORPUSCULAR HGB CONC 32 g/dl (31.0-36.0); MEAN CORPUSCULAR VOLUME 89 fL (80-96); MONOCYTES # (AUTO) 1.7 K/uL (0.1-1.30); MONOCYTES % (AUTO) 7.8 % (2.0-12.0); NEUTROPHILS # (AUTO) 18.5 K/uL (1.8-8.9); NEUTROPHILS % (AUTO) 83.5 % (43.0-81.0); PLATELET COUNT (AUTO) 305 K/uL (150-450); RED BLOOD CELL COUNT(AUTO) 2.69 MIL/uL (4.5-6.0); RED CELL DISTRIBUTION WIDTH 16.1 % (11.5-15.0); WHITE BLOOD COUNT (AUTO) 22.2 K/uL (4.3-11.0)
[2023-07-19 05:08] LABS: CALCIUM, SERUM 7.2 mg/dL (8.5-10.1); CREATININE 1.5 mg/dL (0.6-1.3); PHOSPHORUS 2.7 mg/dL (2.5-4.9)
[2023-07-19 05:11] LABS: POTASSIUM 2.8 mmol/L (3.5-5.1)
[2023-07-19] MEDS ORDERED: POTASSIUM CL. PREMIX PERIPHER. 50 ML IV SCH (10:00)
[2023-07-19] MEDS: POTASSIUM CL. PREMIX PERIPHER. 50 ML IV SCH ×2 (10:38→19:47)
[2023-07-19] MEDS: MEROPENEM 1 G in IV NS 0.9% 100 ML IV SCH (11:27)
[2023-07-19 17:12] LABS: HEMOGLOBIN 7.7 g/dL (13.5-17.5)
[2023-07-20] VITALS (94 sets, daily range): BP systolic 79–118; BP diastolic 51–88; TEMP 98–100.2; O2SAT 93–100
[2023-07-20 03:56] LABS: BASOPHILS % (AUTO) 0.2 % (0.0-2.0); EOSINOPHILS # (AUTO) 0.5 K/uL (0.0-0.7); EOSINOPHILS % (AUTO) 3.4 % (0.0-6.0); LYMPHOCYTES # (AUTO) 1.6 K/uL (0.8-4.8); LYMPHOCYTES % (AUTO) 11.1 % (20.0-44.0); MEAN CORPUSCULAR HEMOGLOBIN 29 PG (26.0-33.0); MEAN CORPUSCULAR HGB CONC 33 g/dl (31.0-36.0); MEAN CORPUSCULAR VOLUME 87 fL (80-96); MONOCYTES # (AUTO) 1.2 K/uL (0.1-1.30); MONOCYTES % (AUTO) 8.1 % (2.0-12.0); NEUTROPHILS # (AUTO) 11.4 K/uL (1.8-8.9); NEUTROPHILS % (AUTO) 77.2 % (43.0-81.0); PLATELET COUNT (AUTO) 312 K/uL (150-450); RED BLOOD CELL COUNT(AUTO) 2.01 MIL/uL (4.5-6.0); RED CELL DISTRIBUTION WIDTH 15.5 % (11.5-15.0); WHITE BLOOD COUNT (AUTO) 14.8 K/uL (4.3-11.0)
[2023-07-20 03:59] LABS: CALCIUM, SERUM 6.9 mg/dL (8.5-10.1); CREATININE 1.3 mg/dL (0.6-1.3); MAGNESIUM 1.9 mg/dL (1.8-2.4); PHOSPHORUS 2.9 mg/dL (2.5-4.9); POTASSIUM 3.3 mmol/L (3.5-5.1)
[2023-07-20 04:03] LABS: HEMATOCRIT 18 % (39-51); HEMOGLOBIN 5.8 g/dL (13.5-17.5)
[2023-07-20 04:29] LABS: ANISOCYTOSIS 1+; BAND % (MANUAL) 5 % (0.0-5.0); BASOPHILS % (MANUAL) 0 % (0.0-2.0); EOSINOPHILS % (MANUAL) 2 % (0-4); LYMPHOCYTES % (MANUAL) 10 % (16-48); MONOCYTES % (MANUAL) 9 % (0-11.0); NEUTROPHILS % (MANUAL) 74 (42-76); PLATELET ESTIMATE ADEQUATE; STOMATOCYTES 1+
[2023-07-20] MEDS: NOREPINEPHRINE 8 MG in IV D5W 242 ML IV PRN (04:51)
[2023-07-20] MEDS ORDERED: PANTOPRAZOLE 40 MG VIAL IV SCH (08:00)
[2023-07-20] MEDS ORDERED: IV D5 LR 1,000 ML IV ONE (08:00)
[2023-07-20] MEDS ORDERED: Sodium Bicarbonate 100 MEQ in IV D5/0.45 NACL 1,000 ML IV SCH (09:00)
[2023-07-20] MEDS: PANTOPRAZOLE 40 MG VIAL IV SCH (09:15)
[2023-07-20 11:18] LABS: OCCULT BLOOD STOOL POSITIVE (NEGATIVE)
[2023-07-20] MEDS: POTASSIUM CL. PREMIX PERIPHER. 50 ML IV SCH (11:30)
[2023-07-20] MEDS: IV D5/0.45 NACL 1,000 ML IV PRN (14:16)
[2023-07-20] MEDS: VANCOMYCIN HCL 1.25 GM in IV D5W 250 ML IV ONE (15:35)
[2023-07-20 17:32] LABS: HEMOGLOBIN 8.1 g/dL (13.5-17.5)
[2023-07-21] VITALS (95 sets, daily range): BP systolic 89–133; BP diastolic 57–91; TEMP 99–100.5; O2SAT 98–100
[2023-07-21] MEDS: VANCOMYCIN 1 GM in IV D5W 250ml IV SCH (02:02)
[2023-07-21 04:12] LABS: BASOPHILS % (AUTO) 0.3 % (0.0-2.0); EOSINOPHILS # (AUTO) 0.5 K/uL (0.0-0.7); EOSINOPHILS % (AUTO) 3.3 % (0.0-6.0); HEMATOCRIT 21 % (39-51); HEMOGLOBIN 7.1 g/dL (13.5-17.5); LYMPHOCYTES # (AUTO) 2.1 K/uL (0.8-4.8); LYMPHOCYTES % (AUTO) 14.1 % (20.0-44.0); MEAN CORPUSCULAR HEMOGLOBIN 29 PG (26.0-33.0); MEAN CORPUSCULAR HGB CONC 33 g/dl (31.0-36.0); MEAN CORPUSCULAR VOLUME 87 fL (80-96); MONOCYTES # (AUTO) 1.3 K/uL (0.1-1.30); MONOCYTES % (AUTO) 8.9 % (2.0-12.0); NEUTROPHILS % (AUTO) 73.4 % (43.0-81.0); PLATELET COUNT (AUTO) 222 K/uL (150-450); RED BLOOD CELL COUNT(AUTO) 2.45 MIL/uL (4.5-6.0); RED CELL DISTRIBUTION WIDTH 14.9 % (11.5-15.0); WHITE BLOOD COUNT (AUTO) 14.9 K/uL (4.3-11.0)
[2023-07-21 04:16] LABS: CALCIUM, SERUM 6.5 mg/dL (8.5-10.1); CREATININE 1.3 mg/dL (0.6-1.3); POTASSIUM 3.4 mmol/L (3.5-5.1)
[2023-07-21] MEDS: POTASSIUM CL. PREMIX PERIPHER. 50 ML IV SCH (10:12)
[2023-07-21 10:38] LABS: INR 1.08 (0.91-1.10); PARTIAL THROMBOPLASTIN TIME 28.8 SEC (24.3-34.3); PROTHROMBIN TIME 11.4 SECS (9.2-11.1)
[2023-07-21 10:41] LABS: D-DIMER 6.38 mg/L(FEU (0.17-0.50)
[2023-07-21 15:24] LABS: HEMOGLOBIN 8.1 g/dL (13.5-17.5)
[2023-07-22] VITALS (50 sets, daily range): BP systolic 94–132; BP diastolic 60–87; TEMP 98.2–100.3; O2SAT 95–100
[2023-07-22 04:37] LABS: BASOPHILS % (AUTO) 0.3 % (0.0-2.0); EOSINOPHILS # (AUTO) 0.6 K/uL (0.0-0.7); EOSINOPHILS % (AUTO) 5.1 % (0.0-6.0); HEMATOCRIT 24 % (39-51); HEMOGLOBIN 7.8 g/dL (13.5-17.5); LYMPHOCYTES # (AUTO) 1.4 K/uL (0.8-4.8); LYMPHOCYTES % (AUTO) 11.8 % (20.0-44.0); MEAN CORPUSCULAR HEMOGLOBIN 29 PG (26.0-33.0); MEAN CORPUSCULAR HGB CONC 33 g/dl (31.0-36.0); MEAN CORPUSCULAR VOLUME 87 fL (80-96); MONOCYTES # (AUTO) 1.4 K/uL (0.1-1.30); MONOCYTES % (AUTO) 11.6 % (2.0-12.0); NEUTROPHILS # (AUTO) 8.5 K/uL (1.8-8.9); NEUTROPHILS % (AUTO) 71.2 % (43.0-81.0); PLATELET COUNT (AUTO) 196 K/uL (150-450); RED CELL DISTRIBUTION WIDTH 16.6 % (11.5-15.0)
[2023-07-22 04:47] LABS: CALCIUM, SERUM 6.8 mg/dL (8.5-10.1); CREATININE 1.1 mg/dL (0.6-1.3); MAGNESIUM 1.8 mg/dL (1.8-2.4); POTASSIUM 3.3 mmol/L (3.5-5.1)
[2023-07-22] MEDS: POTASSIUM CL. PREMIX PERIPHER. 50 ML IV SCH (08:59)
[2023-07-22] MEDS ORDERED: ANESTHESIA TRAY IN PYXIS 1 EA TRAY MC ONE (15:42)
[2023-07-22] MEDS: SUCRALFATE 1 G/10 ML UDC GT SCH (19:41)
[2023-07-22] MEDS: JEVITY 1.2 CAL 1,000 ML BOTTLE GT PRN (23:01)
[2023-07-23] VITALS (26 sets, daily range): BP systolic 97–127; BP diastolic 37–99; TEMP 98.4–99.6; O2SAT 93–100
[2023-07-23 04:59] LABS: BASOPHILS % (AUTO) 0.3 % (0.0-2.0); EOSINOPHILS # (AUTO) 0.5 K/uL (0.0-0.7); EOSINOPHILS % (AUTO) 4.3 % (0.0-6.0); HEMATOCRIT 24 % (39-51); HEMOGLOBIN 7.8 g/dL (13.5-17.5); LYMPHOCYTES # (AUTO) 1.7 K/uL (0.8-4.8); LYMPHOCYTES % (AUTO) 15.5 % (20.0-44.0); MEAN CORPUSCULAR HEMOGLOBIN 29 PG (26.0-33.0); MEAN CORPUSCULAR HGB CONC 33 g/dl (31.0-36.0); MEAN CORPUSCULAR VOLUME 88 fL (80-96); MONOCYTES # (AUTO) 1.3 K/uL (0.1-1.30); MONOCYTES % (AUTO) 12.5 % (2.0-12.0); NEUTROPHILS # (AUTO) 7.3 K/uL (1.8-8.9); NEUTROPHILS % (AUTO) 67.4 % (43.0-81.0); PLATELET COUNT (AUTO) 228 K/uL (150-450); RED BLOOD CELL COUNT(AUTO) 2.73 MIL/uL (4.5-6.0); RED CELL DISTRIBUTION WIDTH 16.4 % (11.5-15.0); WHITE BLOOD COUNT (AUTO) 10.8 K/uL (4.3-11.0)
[2023-07-23 05:15] LABS: CALCIUM, SERUM 7.5 mg/dL (8.5-10.1); CREATININE 1.2 mg/dL (0.6-1.3); POTASSIUM 3.4 mmol/L (3.5-5.1)
[2023-07-23] MEDS ORDERED: DC PROPOFOL WHEN EXTUBATED XX PRN (08:00)
[2023-07-23] MEDS: dexaMETHasone SOD PHOSPHATE 4 MG/ML VIAL IV ONE ×2 (08:29→08:32)
[2023-07-23] MEDS: LEVETIRACETAM SOL (5 ML) 100 MG/ML UDC GT SCH (08:30)
[2023-07-23] MEDS ORDERED: POTASSIUM CL. PREMIX PERIPHER. 50 ML IV SCH (08:30)
[2023-07-23] MEDS: PANTOPRAZOLE 40 MG/PACK PACK GT SCH (08:47)
[2023-07-23] MEDS: POTASSIUM CL. PREMIX PERIPHER. 50 ML IV SCH (08:47)
[2023-07-24] VITALS (14 sets, daily range): BP systolic 98–122; BP diastolic 60–77; TEMP 98–98.4; O2SAT 95–100
[2023-07-24] MEDS: VANCOMYCIN 1 GM in IV D5W 250ml IV SCH (01:24)
[2023-07-24 04:39] LABS: BASOPHILS % (AUTO) 0.3 % (0.0-2.0); EOSINOPHILS # (AUTO) 0.3 K/uL (0.0-0.7); EOSINOPHILS % (AUTO) 2.7 % (0.0-6.0); HEMATOCRIT 22 % (39-51); HEMOGLOBIN 7.3 g/dL (13.5-17.5); LYMPHOCYTES # (AUTO) 1.7 K/uL (0.8-4.8); LYMPHOCYTES % (AUTO) 14.4 % (20.0-44.0); MEAN CORPUSCULAR HEMOGLOBIN 29 PG (26.0-33.0); MEAN CORPUSCULAR HGB CONC 33 g/dl (31.0-36.0); MEAN CORPUSCULAR VOLUME 88 fL (80-96); MONOCYTES # (AUTO) 1.5 K/uL (0.1-1.30); MONOCYTES % (AUTO) 12.6 % (2.0-12.0); NEUTROPHILS # (AUTO) 8.1 K/uL (1.8-8.9); PLATELET COUNT (AUTO) 249 K/uL (150-450); RED BLOOD CELL COUNT(AUTO) 2.55 MIL/uL (4.5-6.0); RED CELL DISTRIBUTION WIDTH 16.2 % (11.5-15.0); WHITE BLOOD COUNT (AUTO) 11.6 K/uL (4.3-11.0)
[2023-07-24 04:56] LABS: CALCIUM, SERUM 7.9 mg/dL (8.5-10.1); POTASSIUM 3.2 mmol/L (3.5-5.1)
[2023-07-24] MEDS: POTASSIUM CHLORIDE 20 MEQ POWDER PACKET GT SCH (08:18)
[2023-07-24] MEDS: VANCOMYCIN 750 MG in IV D5W 250 ML IV SCH (12:10)
[2023-07-25] VITALS (7 sets, daily range): BP systolic 102–140; BP diastolic 68–84; TEMP 97–99.3; O2SAT 99–100
[2023-07-25 08:32] LABS: BASOPHILS % (AUTO) 0.4 % (0.0-2.0); EOSINOPHILS # (AUTO) 0.5 K/uL (0.0-0.7); EOSINOPHILS % (AUTO) 3.7 % (0.0-6.0); HEMATOCRIT 26 % (39-51); HEMOGLOBIN 8.5 g/dL (13.5-17.5); LYMPHOCYTES # (AUTO) 1.3 K/uL (0.8-4.8); LYMPHOCYTES % (AUTO) 10.9 % (20.0-44.0); MEAN CORPUSCULAR HEMOGLOBIN 29 PG (26.0-33.0); MEAN CORPUSCULAR HGB CONC 32 g/dl (31.0-36.0); MEAN CORPUSCULAR VOLUME 89 fL (80-96); MONOCYTES # (AUTO) 1.6 K/uL (0.1-1.30); MONOCYTES % (AUTO) 13.3 % (2.0-12.0); NEUTROPHILS # (AUTO) 8.8 K/uL (1.8-8.9); NEUTROPHILS % (AUTO) 71.7 % (43.0-81.0); PLATELET COUNT (AUTO) 326 K/uL (150-450); RED BLOOD CELL COUNT(AUTO) 2.96 MIL/uL (4.5-6.0); RED CELL DISTRIBUTION WIDTH 16.2 % (11.5-15.0); WHITE BLOOD COUNT (AUTO) 12.3 K/uL (4.3-11.0)
[2023-07-25 09:16] LABS: CALCIUM, SERUM 7.6 mg/dL (8.5-10.1); POTASSIUM 3.7 mmol/L (3.5-5.1)
[2023-07-26] VITALS: BP 106/53; TEMP 98; O2SAT 97
[2023-07-26 04:00] VITALS: BP 103/87; TEMP 98; O2SAT 99
[2023-07-26 06:10] VITALS: O2SAT 99
[2023-07-26 07:01] LABS: BASOPHILS % (AUTO) 0.3 % (0.0-2.0); EOSINOPHILS # (AUTO) 0.4 K/uL (0.0-0.7); EOSINOPHILS % (AUTO) 4.3 % (0.0-6.0); HEMATOCRIT 25 % (39-51); HEMOGLOBIN 8.4 g/dL (13.5-17.5); LYMPHOCYTES # (AUTO) 1.2 K/uL (0.8-4.8); LYMPHOCYTES % (AUTO) 12.4 % (20.0-44.0); MEAN CORPUSCULAR HEMOGLOBIN 30 PG (26.0-33.0); MEAN CORPUSCULAR HGB CONC 33 g/dl (31.0-36.0); MEAN CORPUSCULAR VOLUME 89 fL (80-96); MONOCYTES # (AUTO) 1.2 K/uL (0.1-1.30); NEUTROPHILS # (AUTO) 6.6 K/uL (1.8-8.9); PLATELET COUNT (AUTO) 362 K/uL (150-450); RED BLOOD CELL COUNT(AUTO) 2.84 MIL/uL (4.5-6.0); RED CELL DISTRIBUTION WIDTH 16.1 % (11.5-15.0); WHITE BLOOD COUNT (AUTO) 9.4 K/uL (4.3-11.0)
[2023-07-26 07:15] LABS: CALCIUM, SERUM 7.6 mg/dL (8.5-10.1); CREATININE 1.1 mg/dL (0.6-1.3); POTASSIUM 3.8 mmol/L (3.5-5.1)
[2023-07-26 08:00] VITALS: BP 127/84; TEMP 98.5; O2SAT 100
[2023-07-26] MEDS ORDERED: JEVITY 1.2 CAL 1,000 ML BOTTLE GT PRN (09:00)
[2023-07-26] MEDS ORDERED: LACT-209 GT (11:25)
[2023-07-26] MEDS ORDERED: PANT40SU2 GT (11:25)
[2023-07-26] MEDS ORDERED: SUCR1ORA6 GT (11:25)
[2023-07-26] MEDS ORDERED: MERO1VIA23 IV (11:25)
[2023-07-26 12:00] VITALS: BP 141/84; TEMP 99.5; O2SAT 99
== END 2023-07-26 15:55 | DRG 710 ==
LOC: ER 21:49 → TELE 23:43 → EDBD 23:43 → MED 07-08 10:49 → TELE 07-14 17:19 → ICU 07-16 21:33 → TELE-TD 07-24 09:05 → TELE1 07-25 10:21
PROVIDERS: ADMIT Nurse Practitioner Acute Care; ATTEND Internal Medicine
PROC: 0FT40ZZ Resection of Gallbladder, Open Approach (ICD-10-PCS; principal; 2023-07-16)
PROC: 0DNU0ZZ Release Omentum, Open Approach (ICD-10-PCS; 2023-07-16)
PROC: 0FN00ZZ Release Liver, Open Approach (ICD-10-PCS; 2023-07-16)
PROC: 5A1955Z Respiratory Ventilation, Greater than 96 Consecutive Hours (ICD-10-PCS; 2023-07-17)
PROC: 0BH17EZ Insertion of Endotracheal Airway into Trachea, Via Natural or Artificial Opening (ICD-10-PCS; 2023-07-17)
PROC: 30233N1 Transfusion of Nonautologous Red Blood Cells into Peripheral Vein, Percutaneous Approach (ICD-10-PCS; 2023-07-17)
PROC: 0DB98ZX Excision of Duodenum, Via Natural or Artificial Opening Endoscopic, Diagnostic (ICD-10-PCS; 2023-07-22)
DX: A41.9 Sepsis, unspecified organism (principal); N17.0 Acute kidney failure with tubular necrosis; R65.21 Severe sepsis with septic shock; J96.21 Acute and chronic respiratory failure with hypoxia; D61.818 Other pancytopenia; C92.00 Acute myeloblastic leukemia, not having achieved remission; G82.50 Quadriplegia, unspecified; I95.9 Hypotension, unspecified; J15.9 Unspecified bacterial pneumonia; J15.69 Pneumonia due to other Gram-negative bacteria; E83.41 Hypermagnesemia; G93.41 Metabolic encephalopathy; K29.81 Duodenitis with bleeding; J96.10 Chronic respiratory failure, unspecified whether with hypoxia or hypercapnia; K82.A2 Perforation of gallbladder in cholecystitis; G40.909 Epilepsy, unspecified, not intractable, without status epilepticus; K82.8 Other specified diseases of gallbladder; R13.10 Dysphagia, unspecified; N39.0 Urinary tract infection, site not specified; Z20.822 Contact with and (suspected) exposure to COVID-19; Z87.820 Personal history of traumatic brain injury; Z74.01 Bed confinement status; K80.00 Calculus of gallbladder with acute cholecystitis without obstruction; Z99.81 Dependence on supplemental oxygen; W34.00XA Accidental discharge from unspecified firearms or gun, initial encounter; Y92.129 Unspecified place in nursing home as the place of occurrence of the external cause; K76.0 Fatty (change of) liver, not elsewhere classified; Y95 Nosocomial condition; Z86.14 Personal history of Methicillin resistant Staphylococcus aureus infection; E87.0 Hyperosmolality and hypernatremia; E83.39 Other disorders of phosphorus metabolism; E87.6 Hypokalemia; Z93.0 Tracheostomy status; Z93.1 Gastrostomy status; Z98.2 Presence of cerebrospinal fluid drainage device; F32.9 Major depressive disorder, single episode, unspecified; Z79.899 Other long term (current) drug therapy; S31.000A Unspecified open wound of lower back and pelvis without penetration into retroperitoneum, initial encounter; X58.XXXA Exposure to other specified factors, initial encounter; Y92.9 Unspecified place or not applicable; R73.9 Hyperglycemia, unspecified; K82.A1 Gangrene of gallbladder in cholecystitis
CPT/HCPCS: 31720; 36415; 36600; 71045-TC; 71250-TC; 74018; 76700-TC; 78226; 80048-TC; 80053-TC; 80061-TC; 80076-TC; 80202-TC; 81001; 82272-TC; 82570-TC; 82803-TC; 82962-TC; 83605-TC; 83735-TC; 84100-TC; 84300-TC; 84478-TC; 84484-TC; 85025-TC; 85027-TC; 85378-TC; 85730-TC; 86704; 86706; 86707; 86709; 86803; 86850-TC; 87040-TC; 87081-TC; 87086-TC; 87340; 87350; 87806; 93307-TC; 94002-TC; 94003-TC; 94760-TC; 94761-TC; 94799-TC; 99082-TC; A4216; A4217; A4223; A6253; A6403; A7526; A9537; A9563; C9113; G0378; J0690; J1100; J1170; J1650; J1885; J1953; J2020; J2060; J2185; J2250; J2405; J2543; J2704; J2765; J2795; J3010; J3370; J3371; J3430; J3475; J3480; J3490; J7030; J7050; J7060; J7070; P9016; P9045